=== PATIENT | female | born 1940 | race Caucasian/White ===

== ENCOUNTER 2018-03-04 11:28 | Emergency (ER) | payer MEDICARE ==
[~2018-03-04] VITALS: Ht 160 cm; Wt 63.5 kg
--- OUTSIDE RECORDS SUMMARY | 2018-03-04 11:32 | XMS REPORT | Summary of Care ---
Author Author [facility] Organization [facility] Address Unknown Phone Unavailable Encounter HQ Rustam(ERNIE) [id number] Date(s): 02/15/15 - 02/17/15 [facility] [address] [place] [address]- Final: Unspecified fracture of unspecified patella, initial encounter for closed fracture Discharge Disposition: [facility] Facility Attending Physician: Flores Joseph MD Admitting Physician: Calvin Rogers DO Vital Signs 1 2 3 Most recent to oldest [Reference Range]: 157.48 cm (02/15/15 10:50 PM) 165.1 cm (02/15/15 6:27 PM) Height 1 2 3 Most recent to oldest [Reference Range]: 98.2 DegF (02/17/15 12:20 PM) 98.8 DegF (02/17/15 7:35 AM) 98.6 DegF (02/17/15 12:00 AM) Temperature Oral [96.4-99.1 DegF] 1 2 3 Most recent to oldest [Reference Range]: 139/72 mmHg (02/17/15 12:20 PM) 141/84 mmHg *HI* (02/17/15 7:35 AM) 153/86 mmHg *HI* (02/17/15 12:00 AM) Blood Pressure [90-140/60-90 mmHg] 1 2 3 Most recent to oldest [Reference Range]: 16 BRMIN (02/17/15 12:20 PM) 16 BRMIN (02/17/15 7:35 AM) 17 BRMIN (02/17/15 12:00 AM) Respiratory Rate [14-20 BRMIN] 1 2 3 Most recent to oldest [Reference Range]: 76 bpm (02/17/15 12:20 PM) 78 bpm (02/17/15 7:35 AM) 81 bpm (02/17/15 12:00 AM) Peripheral Pulse Rate [60-100 bpm] 1 2 3 Most recent to oldest [Reference Range]: 72.727 kg (02/15/15 10:50 PM) 72.727 kg (02/15/15 6:27 PM) Weight 1 2 3 Most recent to oldest [Reference Range]: 29.33 m2 (02/15/15 10:50 PM) 26.68 m2 (02/15/15 6:27 PM) Body Mass Index Problem List Condition Effective Dates Status Health Status Informant Anxiety(Confirmed) Active Facial Active nerve(Confirmed) Hypertension(Confirm Active ed) Allergies, Adverse Reactions, Alerts Substance Reaction Severity Status NKDA Active Medications cefTRIAXone + Sodium Chloride 0.9% IV 100 mL 1 gm, Route: IVPB, Q24H, Dosing Weight 72.727, kg, Priority: STAT, Start date: 1 21:36:00, Duration: 30 day, Stop date: 03/16/15 21:36:00 Notes: (Same As: Zach).Use with 100ml NS mini-bag PLUS and infuse over 30 mi n MEDICATION WASTE Product Size: 1000 mgProduct Wasted: ___ mg Start Date: 02/15/15 Stop Date: 02/17/15 Status: Discontinued docusate sodium 100 mg oral capsule 100 mg, 1 cap, Route: PO, Drug form: CAP, BID, Dosing Weight 72.727, kg, Start d ate: 02/17/15 17:00:00, Duration: 30 day, Stop date: 03/19/15 9:00:00 Notes: (Same as: Colace) (Do Not Crush) Start Date: 02/17/15 Stop Date: 02/17/15 Status: Discontinued Dulcolax Laxative 10 mg, 2 tab, Route: PO, Drug form: ECTAB, Daily, Dosing Weight 72.727, kg, Prio rity: NOW, Start date: 02/17/15 10:12:00, Duration: 30 day, Stop date: 03/19/15 9:00:00 Notes: (Same As: Dulcolax, Correctol) (Do Not Crush) "Do Not Crush" Start Date: 02/17/15 Stop Date: 02/17/15 Status: Discontinued enalapril 10 mg, 2 tab, Route: PO, Drug form: TAB, Daily, Dosing Weight 72.727, kg, Start date: 02/16/15 23:00:00, Duration: 30 day, Stop date: 03/18/15 9:00:00 Notes: (Same as: Vasotec) Start Date: 02/16/15 Stop Date: 02/17/15 Status: Discontinued LORazepam 0.5 mg, 1 tab, Route: PO, Drug form: TAB, BID, Dosing Weight 72.727, kg, PRN as needed for anxiety, Start date: 02/16/15 11:50:00, Duration: 30 day, Stop date: 03/18/15 11:49:00 Notes: (Same as: Ativan) Start Date: 02/16/15 Stop Date: 02/17/15 Status: Discontinued morphine Sulfate 2 mg, 1 mL, Route: IVP, Drug form: INJ, Q4H, Dosing Weight 72.727, kg, PRN Pain Score 7-10, Start date: 02/15/15 21:36:00, Duration: 30 day, Stop date: 03/17/15 21:35:00 Notes: (Same as:MORPhine Sulfate) Start Date: 02/15/15 Stop Date: 02/17/15 Status: Discontinued multivitamin with minerals 1 tab, Route: PO, Drug Form: TAB, Dosing Weight 72.727, kg, Daily, Start date: 1 9:00:00, Duration: 30 day, Stop date: 03/18/15 9:00:00 Notes: (Same as:Thera-M, Theragran-M) Give with food. Start Date: 02/17/15 Stop Date: 02/17/15 Status: Discontinued [place] 7.5/325 oral tablet 1 tab, Route: PO, Drug Form: TAB, Dosing Weight 72.727, kg, Q6H, PRN Pain Score 7-10, Start date: 02/15/15 21:54:00, Stop date: 03/17/15 21:53:00 Notes: Same as [place] 325-7.5mg Do not exceed 4gm/day of acetaminophen. Start Date: 02/15/15 Stop Date: 02/17/15 Status: Discontinued nortriptyline 20 mg, 2 cap, Route: PO, Drug form: CAP, Bedtime, Dosing Weight 72.727, kg, Star t date: 02/16/15 21:00:00, Duration: 30 day, Stop date: 03/17/15 21:00:00 Notes: (Same as:Pamelor, Aventyl) Start Date: 02/16/15 Stop Date: 02/17/15 Status: Discontinued omeprazole 20 mg, Route: PO, Drug form: DRC, Daily, Dosing Weight 72.727, kg, Start date: 1 9:00:00, Duration: 30 day, Stop date: 03/18/15 9:00:00 Start Date: 02/17/15 Stop Date: 02/16/15 Status: Deleted ondansetron 4 mg, 2 mL, Route: IVP, Drug form: INJ, Q6H, Dosing Weight 72.727, kg, PRN Nause a & Vomiting, Start date: 02/15/15 21:36:00, Duration: 30 day, Stop date: 03/17/15 21:35:00 Notes: (Same as: Sandi) MEDICATION WASTE Product Size: 4 mgProduct Was mary: ___ mg Start Date: 02/15/15 Stop Date: 02/17/15 Status: Discontinued Protonix 40 mg, 1 tab, Route: PO, Drug form: ECTAB, Before Breakfast, Start date: 5 7:30:00, Duration: 30 day, Stop date: 03/18/15 7:30:00 Notes: Tablet should not be chewed or crushed.(Same as: Protonix) Start Date: 02/17/15 Stop Date: 02/17/15 Status: Discontinued Saline Flush 0.9% 10 ml, Route: IVP, Drug Form: INJ, Dosing Weight 72.727, kg, PRN, PRN Line Flush , Start date: 02/15/15 21:36:00, Duration: 30 day, Stop date: 03/17/15 20:35:00 Notes: (Same as: BD Posiflush) Start Date: 02/15/15 Stop Date: 02/17/15 Status: Discontinued Sodium Chloride 0.9% IV 1,000 mL 1,000 mL, Rate: 75 ml/hr, Infuse over: 13.3 hr, Route: IV, Dosing Weight 72.727 kg, Total Volume: 1,000, Start date: 02/15/15 21:36:00, Duration: 30 day, Stop d ate: 03/17/15 21:35:00 Start Date: 02/15/15 Stop Date: 02/17/15 Status: Discontinued tramadol 50 mg, 1 tab, Route: PO, Drug form: TAB, Q6H, Dosing Weight 72.727, kg, PRN Pain Score 4-6, Start date: 02/17/15 10:12:00, Duration: 30 day, Stop date: 03/19/15 10:11:00 Notes: Not to exceed 400mg/day. (Same As: Ultram) Start Date: 02/17/15 Stop Date: 02/17/15 Status: Discontinued tramadol 50 mg oral tablet 1-2 tab, PO, Q6H, PRN Pain, # 24 tab, 0 Refill(s) Start Date: 02/17/15 Status: Ordered verapamil 240 mg, 1 tab, Route: PO, Drug form: ERTAB, Daily, Dosing Weight 72.727, kg, Sta rt date: 02/17/15 9:00:00, Duration: 30 day, Stop date: 03/18/15 9:00:00 Notes: Do not crush or chew.; "Avoid grapefruit and grapefruit juice"(Same As: C salvador SR, Isoptin SR) Start Date: 02/17/15 Stop Date: 02/17/15 Status: Discontinued Vitamin D2 400 IntlUnit, Route: PO, Daily, Dosing Weight 72.727, kg, Start date: 02/17/15 9 :00:00, Duration: 30 day, Stop date: 03/18/15 9:00:00 Start Date: 02/17/15 Stop Date: 02/16/15 Status: Deleted Results ELECTROLYTES Most recent to 1 oldest [Reference Range]: Sodium Lvl [135-145 137 mEq/L mEq/L] (02/15/15 7:20 PM) Potassium Lvl 3.7 mEq/L [3.5-5.1 mEq/L] (02/15/15 7:20 PM) Chloride Lvl [95-109 102 mEq/L mEq/L] (02/15/15 7:20 PM) CO2 [24-32 mEq/L] 27 mEq/L (02/15/15 7:20 PM) AGAP [10.0-20.0 11.7 mEq/L mEq/L] (02/15/15 7:20 PM) CHEM PANEL Most recent to 1 oldest [Reference Range]: Creatinine Lvl 0.8 mg/dL [0.5-1.4 mg/dL] (02/15/15 7:20 PM) eGFR 72 mL/min/1.73m2 1 *NA* (02/15/15 PM) BUN [7-22 mg/dL] 6 mg/dL *LOW* (02/15/15 PM) Glucose Lvl [70-99 104 mg/dL mg/dL] *HI* (02/15/15: PM) Calcium Lvl 8.8 mg/dL [8.5-10.5 mg/dL] (02/15/15 7:20 PM) 1Result Comment: The eGFR is calculated using the CKD-EPI formula. In most young, healthy individuals the eGFR will be >90 mL/min/1.73m2. The eGFR declines with age. An eGFR of 60-89 may be normal in some populations, particularly the elderly, for whom the CKD-EPI formula has not been extensively validated. Use of the eGFR is not recommended in the following populations: Individuals with unstable creatinine concentrations, including patients and those with serious co-morbid conditions. Patients with extremes in muscle mass or diet. The data above are obtained from the National Kidney Disease Education Program ( NKDEP) which additionally recommends that when the eGFR is used in patients with extremes of body mass index for purposes of drug dosing, the eGFR should be mul tiplied by the estimated BMI. URINE AND STOOL Most recent to 1 oldest [Reference Range]: UA Turbidity [Clear] Clear (02/15/15 7:20 PM) UA Color [Yellow] Yellow *NA* (02/15/15 7:20 PM) UA pH [5.0-8.0] 6.0 (02/15/15 7:20 PM) UA Spec Grav <=1.005 [<=1.030] *NA* (02/15/15 7:20 PM) UA Glucose Negative [Negative] (02/15/15 7:20 PM) UA Blood [Negative] Trace *ABN* (02/15/15 7:20 PM) UA Ketones Negative [Negative] *NA* (02/15/15 7:20 PM) UA Protein Negative [Negative] (02/15/15 7:20 PM) UA Urobilinogen 0.2 EU/dL [0.1-1.0 EU/dL] (02/15/15 7:20 PM) UA Bili [Negative] Negative *NA* (02/15/15 7:20 PM) UA Leuk Est Negative [Negative] (02/15/15 7:20 PM) UA Nitrite Negative [Negative] (02/15/15 7:20 PM) UA Sq Epi [Few /LPF] Occasional /LPF (02/15/15 7:20 PM) HEMATOLOGY Most recent to 1 oldest [Reference Range]: WBC [3.7-10.4 K/CMM] 8.8 K/CMM (02/15/15 7:20 PM) RBC [4.20-5.40 3.80 M/CMM M/CMM] *LOW* (02/15/15 7:20 PM) Hgb [12.0-16.0 g/dL] 12.0 g/dL (02/15/15 7:20 PM) Hct [36.0-48.0 %] 35.7 % *LOW* (02/15/15 7:20 PM) MCV [80.0-98.0 fL] 93.8 fL (02/15/15 7:20 PM) MCH [27.0-31.0 pg] 31.5 pg *HI* (02/15/15 7:20 PM) MCHC [32.0-36.0 33.5 g/dL g/dL] (02/15/15 7:20 PM) RDW [11.5-14.5 %] 12.9 % (02/15/15 7:20 PM) Platelet [133-450 207 K/CMM K/CMM] (02/15/15 7:20 PM) MPV [7.4-10.4 fL] 6.6 fL *LOW* (02/15/15 7:20 PM) Segs [45.0-75.0 %] 72.6 % (02/15/15 7:20 PM) Lymphocytes 15.9 % [20.0-40.0 %] *LOW* (02/15/15 7:20 PM) Monocytes [2.0-12.0 10.8 % %] (02/15/15 7:20 PM) Eosinophils [0.0-4.0 0.1 % %] (02/15/15 7:20 PM) Basophils [0.0-1.0 0.6 % %] (02/15/15 7:20 PM) Segs-Bands # 6.4 K/CMM [1.5-8.1 K/CMM] (02/15/15 7:20 PM) Lymphocytes # 1.4 K/CMM [1.0-5.5 K/CMM] (02/15/15 7:20 PM) Monocytes # [0.0-0.8 0.9 K/CMM K/CMM] *HI* (02/15/15 7:20 PM) Basophils # [0.0-0.2 0.1 K/CMM K/CMM] (02/15/15 7:20 PM) Immunizations No data available for this section Procedures Procedure Date Related Diagnosis Body Site Cholecystostomy Social History Social History Type Response Alcohol Type Liquor. Frequency: 1-2 times per week. Last use: today. Smoking Status Never smoker; Exposure to Tobacco Smoke None; Cigarette Smoking Last 365 Days No; Reg Smoking Cessation Counseling No Assessment and Plan Extracted from: Title: Clinical Document Author: Calvin Rogers DO Date: 02/17/15 Progress Daily [facility] Completed: Jan, 14:54 by Calvin Rogers DO RM: 89 - [address], SE [id number] (: 1940) F Attending: Calvin Rogers DOPhone: Service: Internal Medicine Reason for Admission: PATELLAR FX; HUMERUS FX; INABILITY TO WALK Working DRG: None Documented Code status: Full Code [Ordered]Current diet: Isolation: None Documented Allergies: NKDA SUBJECTIVE Patient seen and examined. Events noted overnight. Labs/Images reviewed doing ok, improved OBJECTIVE Labs (Last four charted values) WBC 8.8(FEB 15) Hgb 12.0(FEB 15) Hct L 35.7(FEB 15) Plt 207(FEB 15) Na 137(FEB 15) K 3.7(FEB 15) CO2 27(FEB 15) Cl 102(FEB 15) Cr 0.8(FEB 15) BUN L 6(FEB 15) Glucose Random H 104(FEB 15) Ca 8.8(FEB 15) ASSESSMENT & EXAM Gen: NAD, Alert, Awake HEENT: NC/AT, PERRLA, oral area clear and moist Neck: No LAD, No JVD, trachea midline Chest: CTAB, no c/w/r CV: RRR, S1, S2 GI: +BS, S, NT, ND, No organomegaly Ext: no c/c/e right leg with brace and left arm on sling Neuro: AOx3, no gross deficits noted Skin: No notable rashes PLAN & TREATMENT accepted to SNF ok to d.c to snf appreciate rehab eval DIAGNOSES & PROBLEMS 1. Mechanical fall with nondisplaced fracture of the left humerus and right patellar fracture. 2. Hypertension. 3. Generalized anxiety. Ready for Discharge (Yes/No)? Jacques still necessary (Yes/No): Line still necessary (Yes/No): (no lab data in past 24 hours) VitalsTmp(F)[id number] 02/17 12:[id number]--- 02/17 07:[id number]--- 02/17 00:0098.441696/999613--- 02/16 19:[id number]--- 02/16 16:0998.003886/[id number]--- 24 Hr Tmax: 98.8F (37.11c) at 02/17 07:35Vital Signs are the last 5 in the past 48 hours. DateWt(kg)Wt(lb)Ht(cm)Ht(in)Method 02/15 (initial) 72.73 160.00Estimated . 65.00Stated I&ORecordInOutBal Tot 720 0 720 01/1824hr Tot 842 0 842 Medications (14) Active Scheduled Meds (8): 02/17/15 bisacodyl (Dulcolax Laxative) 10 mg PO Daily 02/15/15 cefTRIAXone + Sodium Chloride 0.9% IV 100 mL 1 gm IVPB Q24H 200 ml/hr 02/17/15 docusate (docusate sodium 100 mg oral capsule) 100 mg PO BID 02/16/15 enalapril 10 mg PO Daily 02/17/15 multivitamin with minerals 1 tab PO Daily 02/16/15 nortriptyline 20 mg PO Bedtime 02/17/15 pantoprazole (Protonix) 40 mg PO Before Breakfast 02/17/15 verapamil 240 mg PO Daily Unscheduled Meds: None PRN Meds (6): 02/16/15 LORazepam 0.5 mg PO BID 02/15/15 acetaminophen-hydrocodone ([place] 7.5/325 oral tablet) 1 tab PO Q6H 02/15/15 morphine Sulfate 2 mg IVP Q4H 02/15/15 ondansetron 4 mg IVP Q6H 02/15/15 sodium chloride (Saline Flush 0.9%) 10 ml IVP PRN 02/17/15 tramadol 50 mg PO Q6H One Time Meds: None Continuous Infusions: None
--- OUTSIDE RECORDS SUMMARY | 2018-03-04 11:32 | XMS REPORT | Summary of Care ---
Author Author [facility] Organization [facility] Address Unknown Phone Unavailable Encounter ORVILLE Easton(ERNIE) [id number] Date(s): 04/02/15 - 04/02/15 [facility] [address] [address]- [phone] Discharge Diagnosis: Acute lower UTI Discharge Disposition: Home Attending Physician: Jose Miguel Oh DO Vital Signs Most recent to 1 2 oldest [Reference Range]: Temperature Oral 98.1 DegF 97.8 DegF [96.4-99.1 DegF] (04/02/15 9:45 PM) (04/02/15 5:02 PM) Blood Pressure 135/74 mmHg 142/92 mmHg [90-140/60-90 mmHg] (04/02/15 9:45 PM) *HI* (04/02/15 5:02 PM) Respiratory Rate 18 BRMIN 18 BRMIN [14-20 BRMIN] (04/02/15 9:45 PM) (04/02/15 5:02 PM) Peripheral Pulse 78 bpm 79 bpm Rate [60-100 bpm] (04/02/15 9:45 PM) (04/02/15 5:02 PM) Weight 72.727 kg (04/02/15 5:02 PM) Problem List Condition Effective Dates Status Health Status Informant Anxiety(Confirmed) Active Facial Active nerve(Confirmed) Hypertension(Confirm Active ed) Allergies, Adverse Reactions, Alerts Substance Reaction Severity Status codeine Active Medications Macrobid 100 mg, 1 cap, Route: PO, Drug form: CAP, ONCE, Dosing Weight 72.727, kg, Priori ty: STAT, Start date: 04/02/15 20:49:00, Stop date: 04/02/15 20:49:00 Notes: Not Recommended for patients with CrCl< 50 ml/minWith food (Same as:Macrodantin) Start Date: 04/02/15 Stop Date: 04/02/15 Status: Completed Macrobid 100 mg oral capsule 100 mg=1 cap, PO, BID, X 7 day, # 14 cap, 0 Refill(s) Start Date: 04/02/15 Stop Date: 04/09/15 Status: Ordered Saline Flush 0.9% 10 mL, Route: IVP, Drug Form: INJ, Dosing Weight 72.727, kg, PRN, PRN Line Flush , Start date: 04/02/15 17:07:00, Duration: 30 day, Stop date: 05/02/15 17:06:00 Notes: (Same as: BD Posiflush) Start Date: 04/02/15 Stop Date: 04/02/15 Status: Discontinued Tylenol Caplet Extra Strength 500 mg oral tablet 500 mg=1 tab, PO, Q6H, PRN Fever, X 10 day, # 40 tab, 0 Refill(s) Start Date: 04/02/15 Stop Date: 04/12/15 Status: Ordered Results ELECTROLYTES Most recent to 1 oldest [Reference Range]: Sodium Lvl [135-145 131 mEq/L mEq/L] *LOW* (04/02/15 5:59 PM) Potassium Lvl 3.3 mEq/L [3.5-5.1 mEq/L] *LOW* (04/02/15 5:59 PM) Chloride Lvl [95-109 95 mEq/L mEq/L] (04/02/15 5:59 PM) CO2 [24-32 mEq/L] 26 mEq/L (04/02/15 5:59 PM) AGAP [10.0-20.0 13.3 mEq/L mEq/L] (04/02/15 5:59 PM) CHEM PANEL Most recent to 1 oldest [Reference Range]: Creatinine Lvl 0.75 mg/dL [0.50-1.40 mg/dL] (04/02/15 5:59 PM) eGFR 78 mL/min/1.73m2 1 *NA* (04/02/15 5:59 PM) BUN [7-22 mg/dL] 8 mg/dL (04/02/15 5:59 PM) B/C Ratio [6-25] 11 (04/02/15 5:59 PM) Glucose Lvl [70-99 103 mg/dL mg/dL] *HI* (04/02/15 5:59 PM) Total Protein 8.0 g/dL [6.4-8.4 g/dL] (04/02/15 5:59 PM) Albumin Lvl [3.5-5.0 3.9 g/dL g/dL] (04/02/15 5:59 PM) Globulin [2.0-4.0 4.1 g/dL g/dL] *HI* (04/02/15 5:59 PM) A/G Ratio [0.7-1.6] 1.0 (04/02/15 5:59 PM) Calcium Lvl 9.4 mg/dL [8.5-10.5 mg/dL] (04/02/15 5:59 PM) ALT [0-65 unit/L] 19 unit/L (04/02/15 5:59 PM) AST [0-37 unit/L] 16 unit/L (04/02/15 5:59 PM) Alk Phos [39-136 78 unit/L unit/L] (04/02/15 5:59 PM) Bili Total [0.2-1.3 0.3 mg/dL mg/dL] (04/02/15 5:59 PM) Lipase Lvl [73-393 115 unit/L unit/L] (04/02/15 5:59 PM) 1Result Comment: The eGFR is calculated [...] 1 oldest [Reference Range]: UA Turbidity [Clear] Slight *ABN* (04/02/15 8:04 PM) UA Color Ltyellow *NA* (04/02/15 8:04 PM) UA pH [5.0-8.0] 5.0 (04/02/15 8:04 PM) UA Spec Grav 1.006 [<=1.030] (04/02/15 8:04 PM) UA Glucose [Negative Negative mg/dL mg/dL] *NA* (04/02/15 8:04 PM) UA Blood [Negative] Small *ABN* (04/02/15 8:04 PM) UA Ketones [Negative Negative mg/dL mg/dL] *NA* (04/02/15 8:04 PM) UA Protein [Negative Negative mg/dL mg/dL] (04/02/15 8:04 PM) UA Urobilinogen <=1.0 mg/dL [0.1-1.0 mg/dL] *NA* (04/02/15 8:04 PM) UA Bili [Negative] Negative *NA* (04/02/15 8:04 PM) UA Leuk Est Moderate [Negative] *ABN* (04/02/15 8:04 PM) UA Nitrite Negative [Negative] (04/02/15 8:04 PM) UA WBC [0-5 /HPF] 4 /HPF (04/02/15 8:04 PM) UA RBC [0-2 /HPF] 2 /HPF (04/02/15 8:04 PM) UA Bacteria [None Occasional /HPF Seen /HPF] *NA* (04/02/15 8:04 PM) UA Sq Epi [Few /LPF] Occasional /LPF *NA* (04/02/15 8:04 PM) HEMATOLOGY Most recent to 1 oldest [Reference Range]: WBC [3.7-10.4 K/CMM] 9.0 K/CMM (04/02/15 5:59 PM) RBC [4.20-5.40 4.51 M/CMM M/CMM] (04/02/15 5:59 PM) Hgb [12.0-16.0 g/dL] 13.2 g/dL (04/02/15 5:59 PM) Hct [36.0-48.0 %] 39.7 % (04/02/15 5:59 PM) MCV [80.0-98.0 fL] 88.1 fL (04/02/15 5:59 PM) MCH [27.0-31.0 pg] 29.3 pg (04/02/15 5:59 PM) MCHC [32.0-36.0 33.3 g/dL g/dL] (04/02/15 5:59 PM) RDW [11.5-14.5 %] 13.9 % (04/02/15 5:59 PM) Platelet [133-450 301 K/CMM K/CMM] (04/02/15 5:59 PM) MPV [7.4-10.4 fL] 6.6 fL *LOW* (04/02/15 5:59 PM) Segs [45.0-75.0 %] 71.0 % (04/02/15 5:59 PM) Lymphocytes 20.4 % [20.0-40.0 %] (04/02/15 5:59 PM) Monocytes [2.0-12.0 7.7 % %] (04/02/15 5:59 PM) Eosinophils [0.0-4.0 0.3 % %] (04/02/15 5:59 PM) Basophils [0.0-1.0 0.6 % %] (04/02/15 5:59 PM) Segs-Bands # 6.4 K/CMM [1.5-8.1 K/CMM] (04/02/15 5:59 PM) Lymphocytes # 1.8 K/CMM [1.0-5.5 K/CMM] (04/02/15 5:59 PM) Monocytes # [0.0-0.8 0.7 K/CMM K/CMM] (04/02/15 5:59 PM) Basophils # [0.0-0.2 0.1 K/CMM K/CMM] (04/02/15 5:59 PM) PT [12.0-14.7 13.6 seconds seconds] (04/02/15 5:59 PM) INR [0.85-1.17] 1.01 (04/02/15 5:59 PM) PTT [22.9-35.8 32.1 seconds seconds] (04/02/15 5:59 PM) Immunizations No data available for this section Procedures Procedure Date Related Diagnosis Body Site Cholecystostomy Social History Social History Type Response Alcohol Type Liquor. Frequency: 1-2 times per week. Last use: today. Smoking Status Never smoker; Exposure to Tobacco Smoke None; Cigarette Smoking Last 365 Days No; Reg Smoking Cessation Counseling No Assessment and Plan No data available for this section
--- OUTSIDE RECORDS SUMMARY | 2018-03-04 11:32 | XMS REPORT | Summary of Care ---
Author Author [facility] Organization [facility] Address Unknown Phone Unavailable Encounter ORVILLE Easton(ERNIE) [id number] Date(s): 02/13/15 - 02/14/15 [facility] [address] [place] [address]- Discharge Disposition: Home Attending Physician: Calvin Rogers DO Admitting Physician: Calvin Rogers DO Vital Signs 1 2 3 Most recent to oldest [Reference Range]: 157.48 cm (02/13/15 7:06 PM) Height 1 2 3 Most recent to oldest [Reference Range]: 98.4 DegF (02/14/15 4:00 PM) 97.7 DegF (02/14/15 12:02 PM) 98.5 DegF (02/14/15 8:06 AM) Temperature Oral [96.4-99.1 DegF] 1 2 3 Most recent to oldest [Reference Range]: 145/86 mmHg *HI* (02/14/15 4:00 PM) 155/76 mmHg *HI* (02/14/15 12:02 PM) 146/79 mmHg *HI* (02/14/15 8:06 AM) Blood Pressure [90-140/60-90 mmHg] 1 2 3 Most recent to oldest [Reference Range]: 16 BRMIN (02/14/15 4:00 PM) 17 BRMIN (02/14/15 12:02 PM) 16 BRMIN (02/14/15 8:06 AM) Respiratory Rate [14-20 BRMIN] 1 2 3 Most recent to oldest [Reference Range]: 85 bpm (02/14/15 4:00 PM) 78 bpm (02/14/15 12:02 PM) 84 bpm (02/14/15 8:06 AM) Peripheral Pulse Rate [60-100 bpm] 1 2 3 Most recent to oldest [Reference Range]: 70.455 kg (02/13/15 7:06 PM) Weight 1 2 3 Most recent to oldest [Reference Range]: 28.41 m2 (02/13/15 7:06 PM) Body Mass Index Problem List Condition Effective Dates Status Health Status Informant Anxiety(Confirmed) Active Facial Active nerve(Confirmed) Hypertension(Confirm Active ed) Allergies, Adverse Reactions, Alerts Substance Reaction Severity Status NKDA Active Medications enalapril 10 mg, 1 tab, Route: PO, Drug form: TAB, Daily, Dosing Weight 70.455, kg, Start date: 02/15/15 9:00:00, Duration: 30 day, Stop date: 03/16/15 9:00:00 Notes: (Same as: Vasotec) Start Date: 02/15/15 Stop Date: 02/14/15 Status: Canceled enoxaparin 40 mg, 0.4 mL, Route: SUB-Q, Drug form: INJ, [id number], Dosing Weight 70.455, kg, Start date: 02/14/15 16:00:00, Duration: 30 day, Stop date: 03/15/15 16:00:00 Notes: (Same as: Lovenox) Start Date: 02/14/15 Stop Date: 02/14/15 Status: Discontinued LORazepam 0.5 mg, 1 tab, Route: PO, Drug form: TAB, BID, Dosing Weight 70.455, kg, PRN as needed for anxiety, Start date: 02/14/15 13:49:00, Duration: 30 day, Stop date: 03/16/15 13:48:00 Notes: (Same as: Ativan) Start Date: 02/14/15 Stop Date: 02/14/15 Status: Discontinued morphine Sulfate 4 mg, 2 mL, Route: IVP, Drug form: INJ, Q4H, Dosing Weight 70.455, kg, PRN Pain Score 7-10, Start date: 02/14/15 1:17:00, Duration: 30 day, Stop date: 03/16/15 1:16:00 Notes: (Same as:MORPhine Sulfate) Start Date: 02/14/15 Stop Date: 02/14/15 Status: Discontinued [place] 10/325 oral tablet 1 tab, Route: PO, Drug Form: TAB, Dosing Weight 70.455, kg, Q4H, PRN Pain Score 6-10, Start date: 02/14/15 4:32:00, Duration: 30 day, Stop date: 03/16/15 4:31:0 0 Notes: Do not exceed 4gm/day of acetaminophen. (Same as: [place] 325/10) Start Date: 02/14/15 Stop Date: 02/14/15 Status: Discontinued [place] 5/325 oral tablet 1 tab, Route: PO, Drug Form: TAB, Dosing Weight 70.455, kg, ONCE, STAT, Start da te: 02/13/15 20:12:00, Stop date: 02/13/15 20:12:00 Notes: (Same as: [place] 325/5) Do not exceed 4gm/day of acetaminophen. Start Date: 02/13/15 Stop Date: 02/13/15 Status: Completed [place] 7.5/325 oral tablet 1-2 tab, PO, Q4-6H, PRN Pain, X 7 day, # 40 tab, 0 Refill(s), given to patient Start Date: 02/14/15 Stop Date: 02/21/15 Status: Suspended nortriptyline 20 mg, 2 cap, Route: PO, Drug form: CAP, Bedtime, Dosing Weight 70.455, kg, Star t date: 02/14/15 21:00:00, Duration: 30 day, Stop date: 03/15/15 21:00:00 Notes: (Same as:Pamelor, Aventyl) Start Date: 02/14/15 Stop Date: 02/14/15 Status: Canceled omeprazole 20 mg, Route: PO, Drug form: DRC, Daily, Dosing Weight 70.455, kg, Start date: 1 9:00:00, Duration: 30 day, Stop date: 03/16/15 9:00:00 Start Date: 02/15/15 Stop Date: 02/14/15 Status: Discontinued ondansetron 4 mg, 2 mL, Route: IVP, Drug form: INJ, Q6H, Dosing Weight 70.455, kg, PRN Nause a & Vomiting, Start date: 02/14/15 1:17:00, Duration: 30 day, Stop date: 03/16/15 1:16:00 Notes: (Same as: Zofran) MEDICATION WASTE Product Size: 4 mgProduct Was mary: ___ mg Start Date: 02/14/15 Stop Date: 02/14/15 Status: Discontinued Protonix 40 mg, 1 tab, Route: PO, Drug form: ECTAB, Before Dinner, Start date: 02/14/15 1 6:30:00, Duration: 30 day, Stop date: 03/15/15 16:30:00 Notes: Tablet should not be chewed or crushed.(Same as: Protonix) Start Date: 02/14/15 Stop Date: 02/14/15 Status: Discontinued verapamil 240 mg, 1 tab, Route: PO, Drug form: ERTAB, Daily, Dosing Weight 70.455, kg, Sta rt date: 02/15/15 9:00:00, Duration: 30 day, Stop date: 03/16/15 9:00:00 Notes: Do not crush or chew.; "Avoid grapefruit and grapefruit juice"(Same As: C salvador SR, Isoptin SR) Start Date: 02/15/15 Stop Date: 02/14/15 Status: Canceled Results No data available for this section Immunizations No data available for this section Procedures Procedure Date Related Diagnosis Body Site Cholecystostomy Social History Social History Type Response Alcohol Type Liquor. Frequency: 1-2 times per week. Last use: today. Smoking Status Never smoker; Exposure to Tobacco Smoke None; Cigarette Smoking Last 365 Days No; Reg Smoking Cessation Counseling No Assessment and Plan Extracted from: Title: Ortho Consult Author: Casper Zuñiga MD Date: 02/14/15 Consulting Physician: Dr. Calvin Rogers CC: Left shoulder pain, Right knee pain HPI: 74 yo s/p mechanical GLF now with new onsent pain in left shoulder and right knee. Pt's Left shoulder pain is aggravated by any movement and touch. Patient's right knee is anterior knee pain aggravated by any form of touch, movement, or attempted weioght bearing. Pain for both is 7/10 severeity, alleviated by pain med, aggravated by all above parameters. Pt denies, SOB, LOC, CP. PMH: recurrent UTI, HTN PSH: Lap aaron Meds: see MAR SHX: denies tob, etoh, drugs FHx: HTN denies osteoporosis, or arthritis ROS: A 12 system ROS was completed. Systems evaluated include: general, psych, skin, HEENT, CV, Pulm, , GI, Endocrine, Lymphatic, Neuro, Musculoskeletal. Pertinent Positives are limited to MSK see HPI for further details. PE: Vitals: Vital Signs (last 24 hrs) Last Charted Temp Oral98.5 DegF (FEB 14) Heart Rate [id number] bpm (FEB 14) Resp Rate 16 BRMIN (FEB 14) SBPH 146mmHg (FEB 14) DBP79 mmHg (FEB 14) Yyhhdf49.455 kg (FEB 13) Gynhuv102.48 cm (FEB 13) BMI28.41 (FEB 13) General: normal body habitus, NAD, abrasian along left head Psych: AAO*3, demonstrates proper mood and affect Skin: no STS or Ecchymosis or Lacerations along right knee and left shoulder. abrasian to left head Eyes: EOMI, Sclera normal CV: 1+ bilateral intact pulses DR, DP, PT Abdomen: Soft NT, ND Neurologic: Sensory LT I bilaterally all dermatomal distrbutions from C5 to T1 and L2 to S1 Motor RUE: intact deltoid, biceps, triceps, wrist flexors, wrist extensors, IO. Able to perform thumb up, ok, and cross fingers LUE: intact deltoid, biceps, triceps, wrist flexors, wrist extensors, IO. Able to perform thumb up, ok, and cross fingers RLE: intact hip flexors, quads, hamstring, tib ant, gastroc/soleus, EHL, FHL LLE: intact hip flexors, quads, hamstring, tib ant, gastroc/soleus, EHL, FHL Extremity RUE: no focal TTP at clavicle, shoulder, humerus, elbow, forearm, wrist, fingers painless ROM of shoulder, elbow, wrist, and digits LUE: no focal TTP at clavicle, elbow, forearm, wrist, fingers +TTP L shoulder TTP and pain w/ ROM painless ROM of elbow, wrist, and digits RLE: no focal TTP at iliac crest, hip, greater troch, femur, tib/fib, ankle, foot, digits painless ROM of hip, ankle, and digits Focal TTP at patella, pain with extension. INtact straight leg raise LLE: no focal TTP at iliac crest, hip, greater troch, femur, knee, tib/fib, ankle, foot, digits painless ROM of hip, knee, ankle, and digits Radiographs Right knee (AP/Lat): left patella fracture comminuted, minimally displaced, diffuse osteopenia Left shoulder series (3 views): Right proximal humers fracture, minimally displaced and impacted AP Pelvis (single view): no evidence of fracture or dislocation Right femur series (2 views): no evidence of fracture of femur Labs: (no lab data in past 24 hours) Assessemnt: Right patella fracture, comminuted, minimally displaced: S82.044A Left proximal humerus fracture, minimally displaced: S42.215A Medical Decision Making Management: Patient does not require operative fixation of injuries at this time. Left patella fracture: hinged knee brace, locked in full extension at all times. Patient is cleared to WBAT with hinged knee brace locked in full extension Right proximal humerus fracture: shoulder sling, no lifting or ROM for 4 weeks. Data: I have reviewed the images as well as the reports for the Left femur series, AP pelvis, Left knee series, Right shoulder sereis as listed above. My interpretation is as listed above Risk: Moderate We are participating in closed fracture care management of left proximal humerus fractures, right patella fracture.
--- OUTSIDE RECORDS SUMMARY | 2018-03-04 11:32 | XMS REPORT | Summary of Care ---
Author Author [facility] Organization [facility] Address Unknown Phone Unavailable Encounter ORVILLE Easton(ERNIE) [id number] Date(s): 02/23/17 - 03/01/17 [facility] [id number] [place] [address]- Discharge Disposition: [facility] Facility Attending Physician: Flex Locke MD Admitting Physician: Flex Locke MD Vital Signs 1 2 3 Most recent to oldest [Reference Range]: 160.02 cm (02/23/17 1:46 PM) 162.56 cm (02/23/17 10:08 AM) Height 98.3 DegF (03/01/17 4:09 PM) 99.3 DegF *HI* (03/01/17 11:22 AM) 98.3 DegF (03/01/17 7:35 AM) Temperature Oral [96.4-99.1 DegF] 107/71 mmHg (03/01/17 4:09 PM) 125/75 mmHg (03/01/17 11:22 AM) 148/91 mmHg *HI* (03/01/17 7:35 AM) Blood Pressure [90-140/60-90 mmHg] 16 BRMIN (03/01/17 4:25 AM) 16 BRMIN (03/01/17 12:05 AM) 16 BRMIN (02/28/17 8:05 PM) Respiratory Rate [14-20 BRMIN] 70 bpm (03/01/17 4:09 PM) 69 bpm (03/01/17 11:22 AM) 73 bpm (03/01/17 7:35 AM) Peripheral Pulse Rate [60-100 bpm] 60 kg (02/27/17 9:00 AM) 61.364 kg (02/23/17 1:46 PM) 54.545 kg (02/23/17 10:08 AM) Weight 23.96 m2 (02/23/17 1:46 PM) 20.64 m2 (02/23/17 10:08 AM) Body Mass Index Problem List Condition Effective Dates Status Health Status Informant Accidental Resolved fall(Confirmed) Anxiety(Confirmed) Active Depression(Confirmed Resolved ) Diarrhea(Confirmed) 08/07/16 Resolved History of Resolved shingles(Confirmed) Hypertension(Confirm Active ed) Seizures(Confirmed) Resolved Allergies, Adverse Reactions, Alerts Substance Reaction Severity Status codeine Active Medications acetaminophen 650 mg, 2 tab, Route: PO, Drug form: TAB, Q4H, Dosing Weight 61.364, kg, PRN Olive n 1-3/Temp > 99.5 F, Start date: 02/23/17 15:25:00 CDT, Duration: 30 day, Stop date: 03/25/17 15:24:00 BLADE ALIGNER Notes: Do not exceed 4 gm/day. (Same as: Tylenol) Start Date: 02/23/17 Stop Date: 03/01/17 Status: Discontinued aspirin 325 mg, Route: PO, Drug form: TAB, ONCE, Dosing Weight 54.545, kg, Priority: STA T, Start date: 02/23/17 12:21:00 CDT, Stop date: 02/23/17 12:21:00 CDT Start Date: 02/23/17 Stop Date: 02/23/17 Status: Completed aspirin 81 mg tablet, enteric coated 81 mg, 1 tab, Route: PO, Drug form: ECTAB, Daily, Dosing Weight 61.364, kg, Star t date: 02/24/17 9:00:00 CDT, Duration: 30 day, Stop date: 03/25/17 9:00:00 BLADE ALIGNER Notes: Do not crush or chew.(Same As: Ecotrin) Start Date: 02/24/17 Stop Date: 03/01/17 Status: Discontinued aspirin 81 mg tablet, enteric coated 81 mg=1 tab, PO, Daily, 0 Refill(s) Start Date: 03/01/17 Status: Ordered atorvastatin 80 mg, 2 tab, Route: PO, Drug form: TAB, Bedtime, Dosing Weight 61.364, kg, Star t date: 02/23/17 21:00:00 CDT, Duration: 30 day, Stop date: 03/24/17 21:00:00 CS T Notes: (Same as: Lipitor) Start Date: 02/23/17 Stop Date: 03/01/17 Status: Discontinued carbidopa-levodopa 25 mg-100 mg oral tablet 1 tab, Route: PO, Drug Form: TAB, Dosing Weight 61.364, kg, TID, NOW, Start date : 02/26/17 11:27:00 CDT, Duration: 30 day, Stop date: 03/28/17 9:00:00 BLADE ALIGNER Notes: Take with milk or food. (Same As: Sinemet) Start Date: 02/26/17 Stop Date: 03/01/17 Status: Discontinued carbidopa-levodopa 25 mg-100 mg oral tablet 1 tab, PO, TID, 0 Refill(s) Start Date: 03/01/17 Status: Ordered enalapril 10 mg, 1 tab, Route: PO, Drug form: TAB, Daily, Dosing Weight 61.364, kg, Start date: 02/26/17 9:00:00 CDT, Duration: 30 day, Stop date: 03/27/17 9:00:00 BLADE ALIGNER Notes: (Same as: Vasotec) Start Date: 02/26/17 Stop Date: 03/01/17 Status: Discontinued enoxaparin 40 mg, 0.4 mL, Route: SUB-Q, Drug form: INJ, [id number], Dosing Weight 61.364, kg, Start date: 02/23/17 16:00:00 CDT, Duration: 30 day, Stop date: 03/24/17 16:00: 00 BLADE ALIGNER Notes: (Same as: Lovenox) Start Date: 02/23/17 Stop Date: 03/01/17 Status: Discontinued famotidine 20 mg oral tablet 20 mg, 1 tab, Route: PO, Drug form: TAB, Daily, Dosing Weight 61.364, kg, Start date: 02/28/17 9:00:00 CDT, Duration: 30 day, Stop date: 03/29/17 9:00:00 BLADE ALIGNER Notes: (Same as: Pepcid) Start Date: 02/28/17 Stop Date: 03/01/17 Status: Discontinued GI cocktail 30 mL, Route: PO, Dosing Weight 54.545, kg, ONCE, STAT, Start date: 02/23/17 11: 40:00 CDT, Stop date: 02/23/17 11:40:00 CDT Start Date: 02/23/17 Stop Date: 02/23/17 Status: Completed guaiFENesin 100 mg, Route: PO, ONCE, Dosing Weight 54.545, kg, Start date: 02/23/17 11:40:00 CDT, Stop date: 02/23/17 11:40:00 CDT Start Date: 02/23/17 Stop Date: 02/23/17 Status: Completed NS (Bolus) IV 1,000 mL, 1,000 ml/hr, Infuse Over: 1 hr, Route: IV, ONCE, Priority: STAT, Dosin g Weight 54.545 kg, Start date: 02/23/17 10:36:00 CDT, Duration: 1 doses or time s, Stop date: 02/23/17 10:36:00 CDT Start Date: 02/23/17 Stop Date: 02/23/17 Status: Completed ondansetron 4 mg, 2 mL, Route: IVP, Drug form: INJ, Q8H, Dosing Weight 61.364, kg, PRN Nause a & Vomiting, Start date: 02/23/17 15:25:00 CDT, Duration: 30 day, Stop date: 03/25/17 15:24:00 BLADE ALIGNER Notes: (Same as: Sandi) MEDICATION WASTE Product Size: 4 mgProduct Was mary: ___ mg Start Date: 02/23/17 Stop Date: 03/01/17 Status: Discontinued pantoprazole 40 mg, Route: IVP, ONCE, Dosing Weight 54.545, kg, Priority: STAT, Start date: 1 11:40:00 CDT, Stop date: 02/23/17 11:40:00 CDT Start Date: 02/23/17 Stop Date: 02/23/17 Status: Completed QUEtiapine 25 mg, 1 tab, Route: PO, Drug form: TAB, BID, Dosing Weight 61.364, kg, PRN Agit ation, Start date: 02/26/17 11:49:00 CDT, Duration: 30 day, Stop date: 03/28/17 11:48:00 BLADE ALIGNER, agitation/hallucinations Notes: (Same as: SEROquel) Start Date: 02/26/17 Stop Date: 03/01/17 Status: Discontinued QUEtiapine 25 mg oral tablet 25 mg=1 tab, PO, BID, PRN Agitation | agitation/hallucinations, 0 Refill(s) Start Date: 03/01/17 Status: Ordered Risperdal 2 mg, 4 tab, Route: PO, Drug form: TAB, Daily, Dosing Weight 61.364, kg, Start d ate: 02/26/17 9:00:00 CDT, Duration: 30 day, Stop date: 03/27/17 9:00:00 BLADE ALIGNER Notes: (Same as: Risperdal) Start Date: 02/26/17 Stop Date: 02/26/17 Status: Discontinued Risperdal 2 mg oral tablet 2 mg=1 tab, PO, Daily, # 60 tab, 0 Refill(s) Start Date: 02/23/17 Stop Date: 03/01/17 Status: Discontinued Saline Flush 0.9% 10 ml, Route: IVP, Drug Form: INJ, Dosing Weight 61.364, kg, Q12H, Start date: 1 21:00:00 CDT, Duration: 30 day, Stop date: 03/25/17 9:00:00 BLADE ALIGNER Notes: (Same as: BD Posiflush) Start Date: 02/23/17 Stop Date: 03/01/17 Status: Discontinued Saline Flush 0.9% 10 ml, Route: IVP, Drug Form: INJ, Dosing Weight 61.364, kg, PRN, PRN Line Flush , Start date: 02/23/17 15:25:00 CDT, Duration: 30 day, Stop date: 03/25/17 14:24 :00 BLADE ALIGNER Notes: (Same as: BD Posiflush) Start Date: 02/23/17 Stop Date: 03/01/17 Status: Discontinued Saline Flush 0.9% 10 mL, Route: IVP, Drug Form: INJ, Dosing Weight 54.545, kg, PRN, PRN Line Flush , Start date: 02/23/17 10:34:00 CDT, Duration: 30 day, Stop date: 03/25/17 9:33: 00 BLADE ALIGNER Notes: (Same as: BD Posiflush) Start Date: 02/23/17 Stop Date: 02/23/17 Status: Discontinued sertraline 50 mg, 1 tab, Route: PO, Drug form: TAB, Daily, Dosing Weight 61.364, kg, Start date: 02/26/17 9:00:00 CDT, Duration: 30 day, Stop date: 03/27/17 9:00:00 BLADE ALIGNER Notes: (Same as: Zoloft) Start Date: 02/26/17 Stop Date: 03/01/17 Status: Discontinued sertraline 50 mg oral tablet 50 mg=1 tab, PO, Daily, # 30 tab, 0 Refill(s) Start Date: 02/23/17 Status: Ordered Sodium Chloride 0.9% (Bolus) IV 1,000 mL, 1000 ml/hr, Infuse Over: 1 hr, Route: IV, 1,000, Drug form: INJ, ONCE, Priority: STAT, Dosing Weight 54.545 kg, Start date: 02/23/17 10:40:00 CDT, Dur ation: 1 doses or times, Stop date: 02/23/17 10:40:00 CDT Start Date: 02/23/17 Stop Date: 02/23/17 Status: Completed Results ELECTROLYTES 1 2 3 Most recent to oldest [Reference Range]: 136 mEq/L (02/28/17 9:32 AM) 135 mEq/L (02/26/17 4:52 AM) 133 mEq/L *LOW* (02/24/17 3:39 AM) Sodium Lvl [135-145 mEq/L] 3.4 mEq/L *LOW* (02/28/17 9:32 AM) 3.7 mEq/L (02/26/17 4:52 AM) 3.6 mEq/L (02/24/17 3:39 AM) Potassium Lvl [3.5-5.1 mEq/L] 99 mEq/L (02/28/17 9:32 AM) 99 mEq/L (02/26/17 4:52 AM) 100 mEq/L (02/24/17 3:39 AM) Chloride Lvl [95-109 mEq/L] 26 mEq/L (02/28/17 9:32 AM) 26 mEq/L (02/26/17 4:52 AM) 25 mEq/L (02/24/17 3:39 AM) CO2 [24-32 mEq/L] 14.4 mEq/L (02/28/17 9:32 AM) 13.7 mEq/L (02/26/17 4:52 AM) 11.6 mEq/L (02/24/17 3:39 AM) AGAP [10.0-20.0 mEq/L] CHEM PANEL 1 2 3 Most recent to oldest [Reference Range]: 0.54 mg/dL (02/28/17 9:32 AM) 0.40 mg/dL *LOW* (02/26/17 4:52 AM) 0.46 mg/dL *LOW* (02/24/17 3:39 AM) Creatinine Lvl [0.50-1.40 mg/dL] 92 mL/min/1.73m2 1 *NA* (02/28/17 9:32 AM) 101 mL/min/1.73m2 2 *NA* (02/26/17 4:52 AM) 96 mL/min/1.73m2 3 *NA* (02/24/17 3:39 AM) eGFR 12 mg/dL (02/28/17 9:32 AM) 12 mg/dL (02/26/17 4:52 AM) 20 mg/dL (02/24/17 3:39 AM) BUN [7-22 mg/dL] 45 *HI* (02/23/17 10:39 AM) B/C Ratio [6-25] 126 mg/dL *HI* (02/28/17 9:32 AM) 98 mg/dL (02/26/17 4:52 AM) 93 mg/dL (02/24/17 3:39 AM) Glucose Lvl [70-99 mg/dL] 7.6 g/dL (02/23/17 10:39 AM) Total Protein [6.4-8.4 g/dL] 3.3 g/dL *LOW* (02/23/17 10:39 AM) Albumin Lvl [3.5-5.0 g/dL] 4.3 g/dL *HI* (02/23/17 10:39 AM) Globulin [2.7-4.2 g/dL] 0.8 (02/23/17 10:39 AM) A/G Ratio [0.7-1.6] 8.6 mg/dL (02/28/17 9:32 AM) 8.7 mg/dL (02/26/17 4:52 AM) 8.6 mg/dL (02/24/17 3:39 AM) Calcium Lvl [8.5-10.5 mg/dL] 35 unit/L (02/23/17 10:39 AM) ALT [0-65 unit/L] 34 unit/L (02/23/17 10:39 AM) AST [0-37 unit/L] 99 unit/L (02/23/17 10:39 AM) Alk Phos [39-136 unit/L] 0.5 mg/dL (02/23/17 10:39 AM) Bili Total [0.2-1.3 mg/dL] 1.2 mMol/L (02/23/17 10:40 AM) Lactic Acid Lvl [0.5-2.2 mMol/L] 1Result Comment: The eGFR is calculated using [...] be mul tiplied by the estimated BMI. 2Result Comment: The eGFR is calculated using the [...] be mul tiplied by the estimated BMI. 3Result Comment: The eGFR is calculated using the [...] be mul tiplied by the estimated BMI. CARDIAC ENZYMES 1 2 3 Most recent to oldest [Reference Range]: 20 unit/L (02/23/17 10:39 AM) Total CK [12-191 unit/L] <0.5 ng/mL (02/23/17 10:39 AM) CK MB [0.5-3.6 ng/mL] <2.5 (02/23/17 10:39 AM) CK MB Index [0.0-2.5] <0.02 ng/mL (02/23/17 10:39 AM) Troponin-I [0.00-0.40 ng/mL] LIPIDS 1 2 3 Most recent to oldest [Reference Range]: 4.18 (02/24/17 3:39 AM) 4.36 (02/23/17 7:09 PM) CHD Risk [3.90-5.80] 159 mg/dL (02/24/17 3:39 AM) 170 mg/dL (02/23/17 7:09 PM) Chol [<=199 mg/dL] 110 mg/dL (02/24/17 3:39 AM) 100 mg/dL (02/23/17 7:09 PM) Trig [<=149 mg/dL] 38 mg/dL *LOW* (02/24/17 3:39 AM) 39 mg/dL *LOW* (02/23/17 7:09 PM) HDL [>=61 mg/dL] 99 mg/dL (02/24/17 3:39 AM) 111 mg/dL *HI* (02/23/17 7:09 PM) LDL (Calculated) [<=99 mg/dL] 22 *NA* (02/24/17 3:39 AM) 20 *NA* (02/23/17 7:09 PM) VLDL SPECIAL CHEMISTRY 1 2 3 Most recent to oldest [Reference Range]: 5.3 % (02/23/17 7:09 PM) Hgb A1C [<=5.6 %] URINE AND STOOL 1 2 3 Most recent to oldest [Reference Range]: Marked *ABN* (02/23/17 10:39 AM) UA Turbidity [Clear] Luciana *NA* (02/23/17 10:39 AM) UA Color 5.0 (02/23/17 10:39 AM) UA pH [5.0-8.0] 1.025 (02/23/17 10:39 AM) UA Spec Grav [<=1.030] Negative mg/dL *NA* (02/23/17 10:39 AM) UA Glucose [Negative mg/dL] Negative (02/23/17 10:39 AM) UA Blood [Negative] Negative mg/dL *NA* (02/23/17 10:39 AM) UA Ketones [Negative mg/dL] Negative mg/dL (02/23/17 10:39 AM) UA Protein [Negative mg/dL] <=1.0 mg/dL *NA* (02/23/17 10:39 AM) UA Urobilinogen [0.1-1.0 mg/dL] Negative *NA* (02/23/17 10:39 AM) UA Bili [Negative] Negative (02/23/17 10:39 AM) UA Leuk Est [Negative] Negative (02/23/17 10:39 AM) UA Nitrite [Negative] 4 /HPF (02/23/17 10:39 AM) UA WBC [0-5 /HPF] 6 /HPF *HI* (02/23/17 10:39 AM) UA RBC [0-2 /HPF] Moderate /HPF *ABN* (02/23/17 10:39 AM) UA Bacteria [None Seen /HPF] Occasional /LPF *NA* (02/23/17 10:39 AM) UA Sq Epi [Few /LPF] Many /LPF *ABN* (02/23/17 10:39 AM) UA Mucus [None Seen /LPF] Occasional /HPF *ABN* (02/23/17 10:39 AM) UA Gustavus Yeast [None Seen /HPF] IMMUNOLOGY 1 2 3 Most recent to oldest [Reference Range]: <0.03 nMol/L 1 *NA* (02/25/17 9:20 AM) ACHr Binding Ab [0.00-0.24 nMol/L] 14 % 2 *NA* (02/25/17 9:20 AM) ACHr Block Ab [0-25 %] <12 % 3 *NA* (02/25/17 9:20 AM) ACHr Mod Ab [0-20 %] Negative 4 *NA* (02/25/17 9:20 AM) Striated Muscle IgG [Neg:<1:40] 1Result Comment: Negative: 0.00 - 0.24 Borderline: 0.25 - 0.40 Positive: > 0.40 2Result Comment: Negative: 0 - 25 Borderline: 26 - 30 Positive: >30 Results for this test are for research purposes only by the assay's senior gamemaster. The performance characteristics of this product have not been established. Results should not be used as a diagnostic procedure without confirmation of the diagnosis by another medically established diagnostic product or procedure. 3Result Comment: Negative: <21 Equivocal: 21 - 25 Positive: >25 The assay is linear between values of 12 and 64. Those <12 and >64 are reported as such. No single value for ACR-modulating antibody should be used as a sole basis for diagnosis or response to therapy. 4Result Comment: Performed At: [address] [id number] Guevara Dawson MD Ph:[phone] HEMATOLOGY 1 2 3 Most recent to oldest [Reference Range]: 10.2 K/CMM (02/28/17 9:32 AM) 8.0 K/CMM (02/26/17 4:52 AM) 8.1 K/CMM (02/24/17 3:39 AM) WBC [3.7-10.4 K/CMM] 4.89 M/CMM (02/28/17 9:32 AM) 4.83 M/CMM (02/26/17 4:52 AM) 4.87 M/CMM (02/24/17 3:39 AM) RBC [4.20-5.40 M/CMM] 13.8 g/dL (02/28/17 9:32 AM) 13.8 g/dL (02/26/17 4:52 AM) 13.8 g/dL (02/24/17 3:39 AM) Hgb [12.0-16.0 g/dL] 41.1 % (02/28/17 9:32 AM) 40.0 % (02/26/17 4:52 AM) 40.5 % (02/24/17 3:39 AM) Hct [36.0-48.0 %] 83.9 fL (02/28/17 9:32 AM) 82.9 fL (02/26/17 4:52 AM) 83.1 fL (02/24/17 3:39 AM) MCV [80.0-98.0 fL] 28.2 pg (02/28/17 9:32 AM) 28.6 pg (02/26/17 4:52 AM) 28.2 pg (02/24/17 3:39 AM) MCH [27.0-31.0 pg] 33.6 g/dL (02/28/17 9:32 AM) 34.5 g/dL (02/26/17 4:52 AM) 34.0 g/dL (02/24/17 3:39 AM) MCHC [32.0-36.0 g/dL] 14.7 % *HI* (02/28/17 9:32 AM) 14.3 % (02/26/17 4:52 AM) 14.3 % (02/24/17 3:39 AM) RDW [11.5-14.5 %] 205 K/CMM (02/28/17 9:32 AM) 222 K/CMM (02/26/17 4:52 AM) 256 K/CMM (02/24/17 3:39 AM) Platelet [133-450 K/CMM] 7.0 fL *LOW* (02/28/17 9:32 AM) 6.8 fL *LOW* (02/26/17 4:52 AM) 6.8 fL *LOW* (02/24/17 3:39 AM) MPV [7.4-10.4 fL] 84.4 % *HI* (02/28/17 9:32 AM) 74.0 % (02/26/17 4:52 AM) 72.7 % (02/24/17 3:39 AM) Segs [45.0-75.0 %] 8.5 % *LOW* (02/28/17 9:32 AM) 15.8 % *LOW* (02/26/17 4:52 AM) 17.0 % *LOW* (02/24/17 3:39 AM) Lymphocytes [20.0-40.0 %] 6.4 % (02/28/17 9:32 AM) 8.8 % (02/26/17 4:52 AM) 9.4 % (02/24/17 3:39 AM) Monocytes [2.0-12.0 %] 0.2 % (02/28/17 9:32 AM) 0.6 % (02/26/17 4:52 AM) 0.2 % (02/24/17 3:39 AM) Eosinophils [0.0-4.0 %] 0.5 % (02/28/17 9:32 AM) 0.8 % (02/26/17 4:52 AM) 0.7 % (02/24/17 3:39 AM) Basophils [0.0-1.0 %] 8.6 K/CMM *HI* (02/28/17 9:32 AM) 5.9 K/CMM (02/26/17 4:52 AM) 5.9 K/CMM (02/24/17 3:39 AM) Segs-Bands # [1.5-8.1 K/CMM] 0.9 K/CMM *LOW* (02/28/17 9:32 AM) 1.3 K/CMM (02/26/17 4:52 AM) 1.4 K/CMM (02/24/17 3:39 AM) Lymphocytes # [1.0-5.5 K/CMM] 0.7 K/CMM (02/28/17 9:32 AM) 0.7 K/CMM (02/26/17 4:52 AM) 0.8 K/CMM (02/24/17 3:39 AM) Monocytes # [0.0-0.8 K/CMM] 0.1 K/CMM (02/28/17 9:32 AM) 0.1 K/CMM (02/26/17 4:52 AM) 0.1 K/CMM (02/24/17 3:39 AM) Basophils # [0.0-0.2 K/CMM] 13.6 seconds (02/23/17 10:39 AM) PT [12.0-14.7 seconds] 1.04 (02/23/17 10:39 AM) INR [0.85-1.17] 29.7 seconds (02/23/17 10:39 AM) PTT [22.9-35.8 seconds] Immunizations Not Given Vaccine Date Status Refusal Reason pneumococcal 13-valent vaccine 08/09/16 Not Given Patient Refuses Procedures Procedure Date Related Diagnosis Body Site Cholecystostomy Social History Social History Type Response Alcohol Type Liquor. Frequency: 1-2 times per week. Last use: today. Smoking Status Former smoker; Type: Cigarettes; Exposure to Tobacco Smoke None; Cigarette Smoking Last 365 Days No; Reg Smoking Cessation Counseling No Assessment and Plan Extracted from: Title: Clinical Document Author: Gregor Carrillo MD Date: 03/01/17 PM&R PROGRESS NOTE CHIEF COMPLAINT AND IDENTIFICATION: A 76-year-old lady with debility, disuse atrophy and cerebrovascular disease being seen for ongoing rehabilitation needs. INTERVAL EVENTS AND SUBJECTIVE: All interval events reviewed. No new complaints of fevers, chills, nausea, vomiting, chest pain, palpitations, headaches, or dizziness. No new bowel or bladder complaints. She continues to have slow remobilization with the therapy services max to total assist. No new numbness, tingling, or weakness otherwise. PHYSICAL EXAMINATION: Vitals and Temp: VitalsTmp(F)[id number] 03/01 11:[id number]/75--96--- 03/01 07:[id number]/91--96--- 03/01 04:[id number]--- 03/01 00:[id number]--- 02/28 20:[id number]--- 24 Hr Tmax: 99.3F (37.39c) at 03/01 11:22Vital Signs are the last 5 in the past 48 hours. GENERAL: Thin, frail, lying in bed, no apparent distress. PSYCH: Sleepy but otherwise oriented, pleasant. HEENT: Pupils equal, round, reactive to light. Extraocular muscles intact. Moist mucous membranes. CARDIOVASCULAR: 2+ bilateral upper extremity pulses, regular rate and rhythm all extremities, warm, well-perfused. PULMONARY: Respirations unlabored, no new dyspnea. ABDOMEN: Doughy, nontender, nondistended. GENITOURINARY: No Jacques. SKIN: No new breakdown. NEUROMUSCULOSKELETAL: She continues with 3/5 weakness in the bilateral upper extremities, shoulders and elbow flexion, 4/5 wrist extension, finger flexion 2/5, hip flexion 3/5, knee extension 4/5, ankle dorsiflexion. No new hypertonicity or clonus. LABORATORY DATA: Labs (Last four charted values) WBC 10.2(FEB 28)8.0(FEB 26)8.1(FEB 24)9.4(FEB 23) Hgb 13.8(FEB 28)13.8(FEB 26)13.8(FEB 24)15.5(FEB 23) Hct 41.1(FEB 28)40.0(FEB 26)40.5(FEB 24)46.0(FEB 23) Plt 205(FEB 28)222(FEB 26)256(FEB 24)288(FEB 23) Na 136(FEB 28)135(FEB 26)L 133(FEB 24)L 132(FEB 23) K L 3.4(FEB 28)3.7(FEB 26)3.6(FEB 24)3.7(FEB 23) CO2 26(FEB 28)26(FEB 26)25(FEB 24)27(FEB 23) Cl 99(FEB 28)99(FEB 26)100(FEB 24)95(FEB 23) Cr 0.54(FEB 28)L 0.40(FEB 26)L 0.46(FEB 24)0.53(FEB 23) BUN 12(FEB 28)12(FEB 26)20(FEB 24)H 24(FEB 23) Glucose Random H 126(FEB 28)98(FEB 26)93(FEB 24)H 117(FEB 23) Ca 8.6(FEB 28)8.7(FEB 26)8.6(FEB 24)8.6(FEB 23) PT 13.6(FEB 23) INR 1.04(FEB 23) PTT 29.7(FEB 23) Troponin <0.02(FEB 23) CK MB <0.5(FEB 23) Total CK 20(FEB 23) DIAGNOSTIC IMAGING: No new imaging. ASSESSMENT AND PLAN: A 76-year-old lady with: 1. Debility. 2. Disuse atrophy. 3. Cardiopulmonary intolerance to activity. 4. Generalized weakness, proximal greater than distal. 5. 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 6. Altered skin integrity was sacral skin breakdown. 7. Medication induced Parkinsonism. RECOMMENDATIONS: 1. I have reviewed the internal medicine and the neurology notes. Neurology has been adjusting her medications. There are starting her on the carbidopa/levodopa. They have made available seroquel for nighttime agitation symptoms. Overall appearing the same this morning. 2. She continues to have generalized weakness. I reviewed all the interval therapy notes. She continues to require max to total assist. 3. We will continue the remobilization program with PT and OT with goals of progressing mobility, ADLs, IADLs identification of adaptive equipment and caregiver training. Per OT, tolerated session well. 4. Case management is involved and we are looking at a long-term center placement for ongoing rehabilitation with goals of progressing to a point to return home with family."
--- OUTSIDE RECORDS SUMMARY | 2018-03-04 11:32 | XMS REPORT | Continuity of Care Document ---
Author Author [facility] Interface Address Unknown Phone Unavailable Problems Problem Status Onset Date Classification Date Reported Comments Source PAIN Active 02/23/2017 [facility] STROKE Active 02/23/2017 [facility] DIARRHEA Active 08/08/2016 [facility] ACUTE COLITIS Active 08/08/2016 [facility] Diarrhea Resolved 08/07/2016 Problem 03/04/2017 [facility] Discharge Diagnosis: Closed fracture of left patella with routine healing 07/14/2016 07/17/2016 [facility] Discharge Diagnosis: Facial injury 07/14/2016 07/17/2016 [facility] Discharge Diagnosis: Unspecified fall, initial encounter 07/14/2016 07/17/2016 [facility] FALL Active 07/14/2016 [facility] Discharge Diagnosis: Acute lower UTI 04/02/2015 04/05/2015 [facility] CHILLS Active 04/02/2015 [facility] PATELLAR FX; HUMERUS FX; INABILITY TO WA Active 02/15/2015 [facility] LEG PAIN Active 02/15/2015 [facility] L HUMERUS FX R PATELLA FX Active 02/13/2015 [facility] HEADACHE Active 11/30/2014 [facility] Anxiety Active Problem 03/04/2017 [facility] Hypertension Active Problem 03/04/2017 [facility] Facial nerve Active Problem 04/05/2015 [facility] Final: Unspecified fracture of unspecified patella, initial encounter for closed fracture 02/20/2015 [facility] Accidental fall Resolved Problem 03/04/2017 [facility] Depression Resolved Problem 03/04/2017 [facility] History of shingles Resolved Problem 03/04/2017 [facility] Seizures Resolved Problem 03/04/2017 [facility] UNSP FRACTURE OF UNSP PATELLA, INIT FOR Active [facility] NONINFECTIVE GASTROENTERITIS AND COLITIS Active [facility] CEREBRAL INFARCTION, UNSPECIFIED Active [facility] Medications Medication Details Route Status Patient Instructions Ordering Provider Order Date Source QUEtiapine 25 mg oral tablet 25 mg=1 tab, PO, BID, PRN Agitation | agitation/hallucinations, 0 Refill(s) Active 03/01/2017 [facility] carbidopa-levodopa 25 mg-100 mg oral tablet 1 tab, PO, TID, 0 Refill(s) Active 03/01/2017 [facility] aspirin 81 mg tablet, enteric coated 81 mg=1 tab, PO, Daily, 0 Refill(s) Active 03/01/2017 [facility] famotidine 20 mg oral tablet 20 mg, 1 tab, Route: PO, Drug form: TAB, Daily, Dosing Weight 61.364, kg, Start date: 02/28/17 9:00:00 CDT, Duration: 30 day, Stop date: 03/29/17 9:00:00 CSTNotes: (Same as: Pepcid) No Longer Active 02/28/2017 [facility] QUEtiapine 25 mg, 1 tab, Route: PO, Drug form: TAB, BID, Dosing Weight 61.364, kg, PRN Agitation, Start date: 02/26/17 11:49:00 CDT, Duration: 30 day, Stop date: 03/28/17 11:48:00 [employer], agitation/hallucinationsN otes: (Same as: SEROquel) No Longer Active 02/26/2017 [facility] carbidopa-levodopa 25 mg-100 mg oral tablet 1 tab, Route: PO, Drug Form: TAB, Dosing Weight 61.364, kg, TID, NOW, Start date: 02/26/17 11:27:00 CDT, Duration: 30 day, Stop date: 03/28/17 9:00:00 CSTNotes: Take with milk or food. (Same As: Sinemet) No Longer Active 02/26/2017 [facility] enalapril 10 mg, 1 tab, Route: PO, Drug form: TAB, Daily, Dosing Weight 61.364, kg, Start date: 02/26/17 9:00:00 CDT, Duration: 30 day, Stop date: 03/27/17 9:00:00 CSTNotes: (Same as: Vasotec) No Longer Active 02/26/2017 [facility] Risperdal 2 mg, 4 tab, Route: PO, Drug form: TAB, Daily, Dosing Weight 61.364, kg, Start date: 02/26/17 9:00:00 CDT, Duration: 30 day, Stop date: 03/27/17 9:00:00 CSTNotes: (Same as: Risperdal) Inactive 02/26/2017 [facility] sertraline 50 mg, 1 tab, Route: PO, Drug form: TAB, Daily, Dosing Weight 61.364, kg, Start date: 02/26/17 9:00:00 CDT, Duration: 30 day, Stop date: 03/27/17 9:00:00 CSTNotes: (Same as: Zoloft) No Longer Active 02/26/2017 [facility] aspirin 81 mg tablet, enteric coated 81 mg, 1 tab, Route: PO, Drug form: ECTAB, Daily, Dosing Weight 61.364, kg, Start date: 02/24/17 9:00:00 CDT, Duration: 30 day, Stop date: 03/25/17 9:00:00 CSTNotes: Do not crush or chew. (Same As: Ecotrin) No Longer Active 02/24/2017 [facility] Saline Flush 0.9% 10 ml, Route: IVP, Drug Form: INJ, Dosing Weight 61.364, kg, Q12H, Start date: 02/23/17 21:00:00 CDT, Duration: 30 day, Stop date: 03/25/17 9:00:00 CSTNotes: (Same as: BD Posiflush) No Longer Active 02/24/2017 [facility] atorvastatin 80 mg, 2 tab, Route: PO, Drug form: TAB, Bedtime, Dosing Weight 61.364, kg, Start date: 02/23/17 21:00:00 CDT, Duration: 30 day, Stop date: 03/24/17 21:00:00 CSTNotes: (Same as: Lipitor) No Longer Active 02/24/2017 [facility] enoxaparin 40 mg, 0.4 mL, Route: SUB-Q, Drug form: INJ, [id number], Dosing Weight 61.364, kg, Start date: 02/23/17 16:00:00 CDT, Duration: 30 day, Stop date: 03/24/17 16:00:00 CSTNotes: (Same as: Lovenox) No Longer Active 02/23/2017 [facility] Saline Flush 0.9% 10 ml, Route: IVP, Drug Form: INJ, Dosing Weight 61.364, kg, PRN, PRN Line Flush, Start date: 02/23/17 15:25:00 CDT, Duration: 30 day, Stop date: 03/25/17 14:24:00 CSTNotes: (Same as: BD Posiflush) No Longer Active 02/23/2017 [facility] acetaminophen 650 mg, 2 tab, Route: PO, Drug form: TAB, Q4H, Dosing Weight 61.364, kg, PRN Pain 1-3/Temp > 99.5 F, Start date: 02/23/17 15:25:00 CDT, Duration: 30 day, Stop date: 03/25/17 15:24:00 CSTNotes: Do not exceed 4 gm/day. (Same as: Tylenol) No Longer Active 02/23/2017 [facility] ondansetron 4 mg, 2 mL, Route: IVP, Drug form: INJ, Q8H, Dosing Weight 61.364, kg, PRN Nausea & Vomiting, Start date: 02/23/17 15:25:00 CDT, Duration: 30 day, Stop date: 03/25/17 15:24:00 CSTNotes: (Same as: Zofran) MEDICATION WASTE Product Size: 4 mg Product Wasted: ___ mg No Longer Active 02/23/2017 [facility] sertraline 50 mg oral tablet 50 mg=1 tab, PO, Daily, # 30 tab, 0 Refill(s) Active 02/23/2017 [facility] Risperdal 2 mg oral tablet 2 mg=1 tab, PO, Daily, # 60 tab, 0 Refill(s) No Longer Active 02/23/2017 [facility] aspirin 325 mg, Route: PO, Drug form: TAB, ONCE, Dosing Weight 54.545, kg, Priority: STAT, Start date: 02/23/17 12:21:00 CDT, Stop date: 02/23/17 12:21:00 CDT Inactive 02/23/2017 [facility] GI cocktail 30 mL, Route: PO, Dosing Weight 54.545, kg, ONCE, STAT, Start date: 02/23/17 11:40:00 CDT, Stop date: 02/23/17 11:40:00 CDT Inactive 02/23/2017 [facility] pantoprazole 40 mg, Route: IVP, ONCE, Dosing Weight 54.545, kg, Priority: STAT, Start date: 02/23/17 11:40:00 CDT, Stop date: 02/23/17 11:40:00 CDT Inactive 02/23/2017 [facility] guaiFENesin 100 mg, Route: PO, ONCE, Dosing Weight 54.545, kg, Start date: 02/23/17 11:40:00 CDT, Stop date: 02/23/17 11:40:00 CDT Inactive 02/23/2017 [facility] Sodium Chloride 0.9% (Bolus) IV 1,000 mL, 1000 ml/hr, Infuse Over: 1 hr, Route: IV, 1,000, Drug form: INJ, ONCE, Priority: STAT, Dosing Weight 54.545 kg, Start date: 02/23/17 10:40:00 CDT, Duration: 1 doses or times, Stop date: 02/23/17 10:40:00 CDT Inactive 02/23/2017 [facility] NS (Bolus) IV 1,000 mL, 1,000 ml/hr, Infuse Over: 1 hr, Route: IV, ONCE, Priority: STAT, Dosing Weight 54.545 kg, Start date: 02/23/17 10:36:00 CDT, Duration: 1 doses or times, Stop date: 02/23/17 10:36:00 CDT Inactive 02/23/2017 [facility] Saline Flush 0.9% 10 mL, Route: IVP, Drug Form: INJ, Dosing Weight 54.545, kg, PRN, PRN Line Flush, Start date: 02/23/17 10:34:00 CDT, Duration: 30 day, Stop date: 03/25/17 9:33:00 CSTNotes: (Same as: BD Posiflush) Inactive 02/23/2017 [facility] pantoprazole 40 mg oral enteric coated tablet 40 mg=1 tab, PO, BID-Before Meals, 0 Refill(s) Active 08/19/2016 [facility] sertraline 50 mg oral tablet 25 mg=0.5 tab, PO, Bedtime, 0 Refill(s) Active 08/19/2016 [facility] Melatonin 3 MG Extended Release Tablet 3 mg=1 tab, PO, Bedtime, PRN Sleep, 0 Refill(s) Active 08/19/2016 [facility] Levetiracetam 500 MG Oral Tablet [Keppra] 500 mg=1 tab, PO, Q12H, 0 Refill(s) Active 08/19/2016 [facility] Atropine 0.5 mg, Route: IVP, PRN, Dosing Weight 72.784, kg, PRN Bradycardia, Start date: 08/18/16 19:10:00 CDT, Duration: 30 day, Stop date: 09/17/16 19:09:00 CDT Inactive 08/19/2016 [facility] Nitroglycerin 0.4 MG Sublingual Tablet 0.4 mg, 1 tab, Route: SL, Drug form: TAB, Q5Min, Dosing Weight 72.784, kg, PRN Chest Pain, Start date: 08/18/16 19:10:00 CDT, Duration: 30 day, Stop date: 09/17/16 19:09:00 CDT Inactive 08/19/2016 [facility] Nitroglycerin 0.4 MG Sublingual Tablet 0.4 mg, 1 tab, Route: SL, Drug form: TAB, Q5Min, Dosing Weight 72.784, kg, PRN Chest Pain, Start date: 08/17/16 2:36:00 CDT, Duration: 30 day, Stop date: 09/16/16 2:35:00 CDTNotes: (Same as:Nitroquick, Nitrostat) "Do Not Crush" Sublingual tablet No Longer Active 08/17/2016 [facility] Atropine 0.5 mg, 5 mL, Route: IV, Drug form: INJ, PRN, Dosing Weight 72.784, kg, PRN Bradycardia, Start date: 08/17/16 2:36:00 CDT, Duration: 30 day, Stop date: 09/16/16 2:35:00 CDT No Longer Active 08/17/2016 [facility] Zoloft 25 mg, 0.5 tab, Route: PO, Drug form: TAB, Bedtime, Dosing Weight 72.784, kg, Start date: 08/15/16 21:24:00 CDT, Duration: 30 day, Stop date: 09/14/16 21:00:00 CDTNotes: (Same as: Zoloft) No Longer Active 08/16/2016 [facility] Levetiracetam 500 MG Oral Tablet [Keppra] 500 mg, 1 tab, Route: PO, Drug form: TAB, Q12H, Dosing Weight 72.784, kg, Start date: 08/15/16 21:00:00 CDT, Duration: 30 day, Stop date: 09/14/16 9:00:00 CDTNotes: (Same as:Keppra) No Longer Active 08/16/2016 [facility] potassium chloride 40 mEq, 2 tab, Route: PO, Drug form: ERTAB, ONCE, Dosing Weight 72.784, kg, Start date: 08/14/16 13:25:00 CDT, Stop date: 08/14/16 13:25:00 CDTNotes: (Same as: K-Dur 20) "Do Not Crush" With food and full glass of water Inactive 08/14/2016 [facility] Flagyl 500 mg, 1 tab, Route: PO, Drug form: TAB, [id number], Start date: 08/12/16 0:00:00 CDT, Duration: 30 day, Stop date: 09/10/16 16:00:00 CDTNotes: (Same as: Flagyl) Take with food/ avoid alcohol Inactive 08/12/2016 [facility] Ativan 0.5 mg, 0.25 mL, Route: IVP, Drug form: INJ, Q6H, Dosing Weight 72.784, kg, PRN Anxiety, Start date: 08/11/16 23:00:00 CDT, Duration: 30 day, Stop date: 09/10/16 22:59:00 CDTNotes: (Same as: Ativan) No Longer Active 08/12/2016 [facility] Lexapro PO, Daily, 0 Refill(s) Active 08/12/2016 [facility] Lorazepam 1 mg, 0.5 mL, Route: IV, Drug form: INJ, Q1H, Dosing Weight 72.784, kg, PRN Seizure, for any seizure greater than 2 minutes, Start date: 08/11/16 21:56:00 CDT, Duration: 30 day, Stop date: 09/10/16 2 1:55:00 CDTNotes: (Same as: Ativan) No Longer Active 08/12/2016 [facility] Lorazepam 1 mg, 0.5 mL, Route: IV, Drug form: INJ, ONCE, Dosing Weight 72.784, kg, Priority: NOW, Start date: 08/11/16 21:44:00 CDT, Stop date: 08/11/16 21:44:00 CDTNotes: (Same as: Ativan) Inactive 08/12/2016 [facility] Cipro 500 mg, 1 tab, Route: PO, Drug form: TAB, [id number], Start date: 08/11/16 21:00:00 CDT, Duration: 30 day, Stop date: 09/10/16 9:00:00 CDTNotes: May interfere w/enteral feedings - Take 1 hr before or 2 hrs after antacids, dairy pdt & minerals. On empty stomach. No Longer Active 08/12/2016 [facility] Aspirin 325 mg, Route: PO, ONCE, Dosing Weight 72.784, kg, Start date: 08/11/16 20:52:00 CDT, Stop date: 08/11/16 20:52:00 CDT Inactive 08/12/2016 [facility] pantoprazole 40 mg, 1 tab, Route: PO, Drug form: ECTAB, BID-Before Meals, Dosing Weight 72.784, kg, Start date: 08/11/16 7:30:00 CDT, Duration: 30 day, Stop date: 09/09/16 16:30:00 CDTNotes: Tablet should not be chewed or crushed. (Same as: Protonix) No Longer Active 08/11/2016 [facility] Melatonin 3 MG Extended Release Tablet 3 mg, 1 tab, Route: PO, Drug Form: TAB, Dosing Weight 72.784, kg, Bedtime, PRN Sleep, Start date: 08/10/16 18:19:00 CDT, Duration: 30 day, Stop date: 09/09/16 18:18:00 CDTNotes: (Same as: Melatonin) No Longer Active 08/10/2016 [facility] potassium chloride 40 mEq, 2 tab, Route: PO, Drug form: ERTAB, ONCE, Dosing Weight 72.784, kg, Start date: 08/10/16 9:00:00 CDT, Stop date: 08/10/16 9:00:00 CDTNotes: (Same as: K-Dur 20) "Do Not Crush" With food and full glass of water Inactive 08/10/2016 [facility] Nortriptyline 20 mg, 2 cap, Route: PO, Drug form: CAP, Bedtime, Dosing Weight 72.784, kg, Start date: 08/09/16 21:00:00 CDT, Duration: 30 day, Stop date: 09/07/16 21:00:00 CDTNotes: (Same as:Pamelor, Aventyl) No Longer Active 08/10/2016 [facility] Morphine 4 mg, 1 mL, Route: IVP, Drug form: SOLN, Q4H, Dosing Weight 72.784, kg, PRN Pain Score 6-10, Start date: 08/09/16 19:32:00 CDT, Duration: 30 day, Stop date: 09/08/16 19:31:00 CDTNotes: (Same as:MORPhine Sulfate) No Longer Active 08/10/2016 [facility] Restoril 15 mg, 1 cap, Route: PO, Drug form: CAP, Bedtime, Dosing Weight 72.784, kg, PRN Sleep, Start date: 08/09/16 18:01:00 CDT, Duration: 30 day, Stop date: 09/08/16 18:00:00 CDTNotes: (Same As: Restoril) No Longer Active 2016 [facility] Restoril 7.5 mg, 1 cap, Route: PO, Drug form: CAP, Bedtime, Dosing Weight 72.784, kg, PRN Sleep, Start date: 08/09/16 18:00:00 CDT, Duration: 30 day, Stop date: 09/08/16 17:59:00 CDTNotes: (Same As: Restoril) Inactive 2016 [facility] Lovenox 40 mg, 0.4 mL, Route: SUB-Q, Drug form: INJ, [id number], Dosing Weight 72.784, kg, Start date: 08/09/16 18:00:00 CDT, Duration: 30 day, Stop date: 09/07/16 18:00:00 CDTNotes: (Same as: Lovenox) No Longer Active 2016 [facility] Morphine 4 mg, 1 mL, Route: IVP, Drug form: SOLN, ONCE, Dosing Weight 72.784, kg, Start date: 08/09/16 17:54:00 CDT, Stop date: 08/09/16 17:54:00 CDTNotes: (Same as:MORPhine Sulfate) Inactive 2016 [facility] Streptococcus pneumoniae serotype 1 capsular antigen diphtheria [id number] protein conjugate vaccine / Streptococcus pneumoniae serotype 14 capsular antigen diphtheria [id number] protein conjugate vaccine / Streptococcus pneumoniae serotype 18C capsular antigen d 0.5 mL, Route: IM, Drug Form: INJ, Daily, Start date: 08/09/16 9:00:00 CDT, Stop date: 08/09/16 11:00:00 CDTNotes: Lightly roll vial (DO NOT SHAKE) before administration. (Same as: Prevnar 13) Inactive 2016 [facility] Ciprofloxacin 400 mg, 200 mL, Route: IVPB, Drug form: INJ, [id number], Dosing Weight 72.784, kg, Start date: 08/09/16 9:00:00 CDT, Duration: 30 day, Stop date: 09/07/16 21:00:00 CDTNotes: Do not refrigerate No Longer Active 2016 [facility] pantoprazole 40 mg, 1 tab, Route: PO, Drug form: ECTAB, Daily, Dosing Weight 72.784, kg, Start date: 08/09/16 9:00:00 CDT, Duration: 30 day, Stop date: 09/07/16 9:00:00 CDTNotes: Tablet should not be chewed or cr ushed. (Same as: Protonix) No Longer Active 2016 [facility] Verapamil 240 mg, Route: PO, Drug form: ERTAB, Daily, Dosing Weight 72.784, kg, Start date: 08/09/16 9:00:00 CDT, Duration: 30 day, Stop date: 09/07/16 9:00:00 CDT No Longer Active 2016 [facility] multivitamin with minerals 1 tab, Route: PO, Drug Form: TAB, Dosing Weight 72.784, kg, Daily, Start date: 08/09/16 9:00:00 CDT, Duration: 30 day, Stop date: 09/07/16 9:00:00 CDTNotes: (Same as:Thera-M, Theragran-M) WASTE: F/P - Black; E - Municipal Trash Bin Give with food. No Longer Active 2016 [facility] Vitamin D2 400 IntlUnit, Route: PO, Daily, Dosing Weight 72.784, kg, Start date: 08/09/16 9:00:00 CDT, Duration: 30 day, Stop date: 09/07/16 9:00:00 CDT Inactive 2016 [facility] enalapril 10 mg, 1 tab, Route: PO, Drug form: TAB, Daily, Dosing Weight 72.784, kg, Start date: 08/09/16 9:00:00 CDT, Duration: 30 day, Stop date: 09/07/16 9:00:00 CDTNotes: (Same as: Vasotec) No Longer Active 2016 [facility] Vitamin D3 400 IntlUnit, 1 tab, Route: PO, Drug form: TAB, Daily, Start date: 08/09/16 9:00:00 CDT, Duration: 30 day, Stop date: 09/07/16 9:00:00 CDTNotes: Same as Vitamin D3 Inactive 2016 [facility] tramadol 50 mg oral tablet 100 mg, 2 tab, Route: PO, Drug form: TAB, Q6H, PRN Pain Score 7-10, Start date: 08/09/16 8:06:00 CDT, Duration: 30 day, Stop date: 09/08/16 8:05:00 CDTNotes: Not to exceed 400mg/day. (Same As: Ultram) No Longer Active 2016 [facility] Hydralazine 10 mg, 0.5 mL, Route: IVP, Drug form: INJ, Q4H, Dosing Weight 72.784, kg, PRN Elevated BP, Start date: 08/09/16 8:05:00 CDT, Duration: 30 day, Stop date: 09/08/16 8:04:00 CDT, SBP>160mmHgNotes: (Same as: Apresoline) Push over 5 minutes No Longer Active 2016 [facility] Metronidazole 500 mg, 100 mL, Route: IVPB, Drug form: INJ, [id number], Dosing Weight 72.784, kg, Start date: 08/09/16 8:00:00 CDT, Duration: 30 day, Stop date: 09/08/16 0:00:00 CDTNotes: (Same as: Flagyl) Avoid alcohol. No Longer Active 2016 [facility] tramadol hydrochloride 50 MG Oral Tablet 50 mg, 1 tab, Route: PO, Drug form: TAB, Q6H, Dosing Weight 72.784, kg, PRN Pain Score 6-10, Start date: 08/09/16 7:59:00 CDT, Duration: 30 day, Stop date: 09/08/16 7:58:00 CDTNotes: Not to exceed 400mg/day. (Same As: Ultram) No Longer Active 2016 [facility] Ondansetron 4 mg, 2 mL, Route: IVP, Drug form: INJ, Q8H, Dosing Weight 72.784, kg, PRN Nausea & Vomiting, Start date: 08/09/16 7:52:00 CDT, Duration: 30 day, Stop date: 09/08/16 7:51:00 CDTNotes: (Same as: Zofran) MEDICATION WASTE Product Size: 4 mg Product Wasted: ___ mg No Longer Active 2016 [facility] Bentyl 20 mg, 1 tab, Route: PO, Drug form: TAB, ONCE, Dosing Weight 70.455, kg, Start date: 08/09/16 5:16:00 CDT, Stop date: 08/09/16 5:16:00 CDTNotes: (Same as: Bentyl) Inactive 2016 [facility] Flagyl 500 mg, Route: IVPB, ONCE, Dosing Weight 70.455, kg, Priority: STAT, Start date: 08/09/16 2:55:00 CDT, Stop date: 08/09/16 2:55:00 CDT Inactive 2016 [facility] Cipro 400 mg, Route: IVPB, ONCE, Dosing Weight 70.455, kg, Priority: STAT, Start date: 08/09/16 2:55:00 CDT, Stop date: 08/09/16 2:55:00 CDT Inactive 2016 [facility] Zofran 4 mg, Route: IVP, Drug form: INJ, ONCE, Dosing Weight 70.455, kg, Priority: STAT, Start date: 08/09/16 1:39:00 CDT, Stop date: 08/09/16 1:39:00 CDT Inactive 2016 [facility] Morphine 2 mg, Route: IVP, ONCE, Dosing Weight 70.455, kg, Priority: STAT, Start date: 08/09/16 1:39:00 CDT, Stop date: 08/09/16 1:39:00 CDT Inactive 2016 [facility] Zofran 4 mg, 2 mL, Route: IVP, Drug form: INJ, ONCE, Dosing Weight 70.455, kg, Priority: STAT, Start date: 08/08/16 22:08:00 CDT, Stop date: 08/08/16 22:08:00 CDTNotes: (Same as: Zofran) MEDICATION WASTE Product Size: 4 mg Product Wasted: 0___ mg Inactive 2016 [facility] Acetaminophen 325 MG / Hydrocodone Bitartrate 5 MG Oral Tablet [[place] 5/325] 1 tab, Route: PO, Drug Form: TAB, Dosing Weight 70.455, kg, ONCE, STAT, Start date: 08/08/16 22:01:00 CDT, Stop date: 08/08/16 22:01:00 CDTNotes: (Same as: [place] 325/5) Do not exceed 4gm/day of acetaminophen. Inactive 2016 [facility] Saline Flush 0.9% 10 mL, Route: IVP, Drug Form: INJ, Dosing Weight 70.455, kg, PRN, PRN Line Flush, Start date: 08/08/16 17:28:00 CDT, Duration: 30 day, Stop date: 09/07/16 17:27:00 CDTNotes: (Same as: BD Posiflush) No Longer Active 08/08/2016 [facility] Sodium Chloride 0.154 MEQ/ML Injectable Solution 1,000 mL, 1,000 ml/hr, Infuse Over: 1 hr, Route: IV, 1,000, Drug form: INJ, ONCE, Priority: STAT, Dosing Weight 70.455 kg, Start date: 08/08/16 17:27:00 CDT, Duration: 1 doses or times, Stop date: 08/08/16 17:27:00 CDT Inactive 08/08/2016 [facility] Motrin 600 mg oral tablet 600 mg=1 tab, PO, Q6H, PRN Pain, take with food, X 10 day, # 40 tab, 0 Refill(s) Active 07/14/2016 [facility] Macrobid 100 mg, 1 cap, Route: PO, Drug form: CAP, ONCE, Dosing Weight 72.727, kg, Priority: STAT, Start date: 04/02/15 20:49:00, Stop date: 04/02/15 20:49:00Notes: Not Recommended for patients with CrCl Inactive 04/03/2015 [facility] Acetaminophen 500 MG Oral Tablet [Tylenol] 500 mg=1 tab, PO, Q6H, PRN Fever, X 10 day, # 40 tab, 0 Refill(s) Active 04/03/2015 [facility] Nitrofurantoin 100 MG Oral Capsule [Macrobid] 100 mg=1 cap, PO, BID, X 7 day, # 14 cap, 0 Refill(s) Active 04/03/2015 [facility] Saline Flush 0.9% 10 mL, Route: IVP, Drug Form: INJ, Dosing Weight 72.727, kg, PRN, PRN Line Flush, Start date: 04/02/15 17:07:00, Duration: 30 day, Stop date: 05/02/15 17:06:00Notes: (Same as: BD Posiflush) Inactive 04/02/2015 [facility] docusate sodium 100 mg oral capsule 100 mg, 1 cap, Route: PO, Drug form: CAP, BID, Dosing Weight 72.727, kg, Start date: 02/17/15 17:00:00, Duration: 30 day, Stop date: 03/19/15 9:00:00Notes: (Same as: Colace) (Do Not Crush) Inactive 02/17/2015 [facility] tramadol hydrochloride 50 MG Oral Tablet 1-2 tab, PO, Q6H, PRN Pain, # 24 tab, 0 Refill(s) Active 02/17/2015 [facility] Dulcolax Laxative 10 mg, 2 tab, Route: PO, Drug form: ECTAB, Daily, Dosing Weight 72.727, kg, Priority: NOW, Start date: 02/17/15 10:12:00, Duration: 30 day, Stop date: 03/19/15 9:00:00Notes: (Same As: Dulcolax, Corre ctol) (Do Not Crush) "Do Not Crush" Inactive 02/17/2015 [facility] Tramadol 50 mg, 1 tab, Route: PO, Drug form: TAB, Q6H, Dosing Weight 72.727, kg, PRN Pain Score 4-6, Start date: 02/17/15 10:12:00, Duration: 30 day, Stop date: 03/19/15 10:11:00Notes: Not to exceed 400mg/day. (Same As: Ultram) Inactive 02/17/2015 [facility] Verapamil 240 mg, 1 tab, Route: PO, Drug form: ERTAB, Daily, Dosing Weight 72.727, kg, Start date: 02/17/15 9:00:00, Duration: 30 day, Stop date: 03/18/15 9:00:00Notes: Do not crush or chew.; "Avoid grapefruit and grapefruit juice" (Same As: Calan SR, Isoptin SR) Inactive 02/17/2015 [facility] Omeprazole 20 mg, Route: PO, Drug form: DRC, Daily, Dosing Weight 72.727, kg, Start date: 02/17/15 9:00:00, Duration: 30 day, Stop date: 03/18/15 9:00:00 No Longer Active 02/17/2015 [facility] multivitamin with minerals 1 tab, Route: PO, Drug Form: TAB, Dosing Weight 72.727, kg, Daily, Start date: 02/17/15 9:00:00, Duration: 30 day, Stop date: 03/18/15 9:00:00Notes: (Same as:Thera-M, Theragran-M) Give with food. Inactive 02/17/2015 [facility] Vitamin D2 400 IntlUnit, Route: PO, Daily, Dosing Weight 72.727, kg, Start date: 02/17/15 9:00:00, Duration: 30 day, Stop date: 03/18/15 9:00:00 No Longer Active 02/17/2015 [facility] Protonix 40 mg, 1 tab, Route: PO, Drug form: ECTAB, Before Breakfast, Start date: 02/17/15 7:30:00, Duration: 30 day, Stop date: 03/18/15 7:30:00Notes: Tablet should not be chewed or crushed. (Same as: Protonix) Inactive 02/17/2015 [facility] enalapril 10 mg, 2 tab, Route: PO, Drug form: TAB, Daily, Dosing Weight 72.727, kg, Start date: 02/16/15 23:00:00, Duration: 30 day, Stop date: 03/18/15 9:00:00Notes: (Same as: Vasotec) No Longer Active 02/17/2015 [facility] Nortriptyline 20 mg, 2 cap, Route: PO, Drug form: CAP, Bedtime, Dosing Weight 72.727, kg, Start date: 02/16/15 21:00:00, Duration: 30 day, Stop date: 03/17/15 21:00:00Notes: (Same as:Pamelor, Aventyl) No Longer Active 02/17/2015 [facility] Lorazepam 0.5 mg, 1 tab, Route: PO, Drug form: TAB, BID, Dosing Weight 72.727, kg, PRN as needed for anxiety, Start date: 02/16/15 11:50:00, Duration: 30 day, Stop date: 03/18/15 11:49:00Notes: (Same as: Ativan) No Longer Active 02/16/2015 [facility] Acetaminophen 325 MG / Hydrocodone Bitartrate 7.5 MG Oral Tablet [[place] 7.5/325] 1 tab, Route: PO, Drug Form: TAB, Dosing Weight 72.727, kg, Q6H, PRN Pain Score 7-10, Start date: 02/15/15 21:54:00, Stop date: 03/17/15 21:53:00Notes: Same as [place] 325-7.5mg Do not exceed 4gm/day of acetaminophen. No Longer Active 02/16/2015 [facility] Saline Flush 0.9% 10 ml, Route: IVP, Drug Form: INJ, Dosing Weight 72.727, kg, PRN, PRN Line Flush, Start date: 02/15/15 21:36:00, Duration: 30 day, Stop date: 03/17/15 20:35:00Notes: (Same as: BD Posiflush) No Longer Active 02/16/2015 [facility] Sodium Chloride 0.154 MEQ/ML Injectable Solution 1,000 mL, Rate: 75 ml/hr, Infuse over: 13.3 hr, Route: IV, Dosing Weight 72.727 kg, Total Volume: 1,000, Start date: 02/15/15 21:36:00, Duration: 30 day, Stop date: 03/17/15 21:35:00 No Longer Active 02/16/2015 [facility] Ceftriaxone 1 gm, Route: IVPB, Q24H, Dosing Weight 72.727, kg, Priority: STAT, Start date: 02/15/15 21:36:00, Duration: 30 day, Stop date: 03/16/15 21:36:00Notes: (Same As: Rocephin). Use with 100ml NS mini-bag PLUS and infuse over 30 min MEDICATION WASTE Product Size: 1000 mg Product Wasted: ___ mg No Longer Active 02/16/2015 [facility] Ondansetron 4 mg, 2 mL, Route: IVP, Drug form: INJ, Q6H, Dosing Weight 72.727, kg, PRN Nausea & Vomiting, Start date: 02/15/15 21:36:00, Duration: 30 day, Stop date: 03/17/15 21:35:00Notes: (Same as: Zofran) MEDICATION WASTE Product Size: 4 mg Product Wasted: ___ mg No Longer Active 02/16/2015 [facility] Morphine 2 mg, 1 mL, Route: IVP, Drug form: INJ, Q4H, Dosing Weight 72.727, kg, PRN Pain Score 7-10, Start date: 02/15/15 21:36:00, Duration: 30 day, Stop date: 03/17/15 21:35:00Notes: (Same as:MORPhine Sulfate) No Longer Active 02/16/2015 [facility] enalapril 10 mg, 1 tab, Route: PO, Drug form: TAB, Daily, Dosing Weight 70.455, kg, Start date: 02/15/15 9:00:00, Duration: 30 day, Stop date: 03/16/15 9:00:00Notes: (Same as: Vasotec) No Longer Active 02/15/2015 [facility] Verapamil 240 mg, 1 tab, Route: PO, Drug form: ERTAB, Daily, Dosing Weight 70.455, kg, Start date: 02/15/15 9:00:00, Duration: 30 day, Stop date: 03/16/15 9:00:00Notes: Do not crush or chew.; "Avoid grapefruit and grapefruit juice" (Same As: Calan SR, Isoptin SR) No Longer Active 02/15/2015 [facility] Omeprazole 20 mg, Route: PO, Drug form: DRC, Daily, Dosing Weight 70.455, kg, Start date: 02/15/15 9:00:00, Duration: 30 day, Stop date: 03/16/15 9:00:00 No Longer Active 02/15/2015 [facility] Nortriptyline 20 mg, 2 cap, Route: PO, Drug form: CAP, Bedtime, Dosing Weight 70.455, kg, Start date: 02/14/15 21:00:00, Duration: 30 day, Stop date: 03/15/15 21:00:00Notes: (Same as:Pamelor, Aventyl) Inactive 02/15/2015 [facility] Protonix 40 mg, 1 tab, Route: PO, Drug form: ECTAB, Before Dinner, Start date: 02/14/15 16:30:00, Duration: 30 day, Stop date: 03/15/15 16:30:00Notes: Tablet should not be chewed or crushed. (Same as: Protonix) Inactive 02/14/2015 [facility] Enoxaparin 40 mg, 0.4 mL, Route: SUB-Q, Drug form: INJ, [id number], Dosing Weight 70.455, kg, Start date: 02/14/15 16:00:00, Duration: 30 day, Stop date: 03/15/15 16:00:00Notes: (Same as: Lovenox) Inactive 02/14/2015 [facility] Acetaminophen 325 MG / Hydrocodone Bitartrate 7.5 MG Oral Tablet [[place] 7.5/325] 1-2 tab, PO, Q4-6H, PRN Pain, X 7 day, # 40 tab, 0 Refill(s), given to patient On Hold 02/14/2015 [facility] Lorazepam 0.5 mg, 1 tab, Route: PO, Drug form: TAB, BID, Dosing Weight 70.455, kg, PRN as needed for anxiety, Start date: 02/14/15 13:49:00, Duration: 30 day, Stop date: 03/16/15 13:48:00Notes: (Same as: Ativan) Inactive 02/14/2015 [facility] Acetaminophen 325 MG / Hydrocodone Bitartrate 10 MG Oral Tablet [[place] 10/325] 1 tab, Route: PO, Drug Form: TAB, Dosing Weight 70.455, kg, Q4H, PRN Pain Score 6-10, Start date: 02/14/15 4:32:00, Duration: 30 day, Stop date: 03/16/15 4:31:00Notes: Do not exceed 4gm/day of acetaminophen. (Same as: [place] 325/10) Inactive 02/14/2015 [facility] Morphine 4 mg, 2 mL, Route: IVP, Drug form: INJ, Q4H, Dosing Weight 70.455, kg, PRN Pain Score 7-10, Start date: 02/14/15 1:17:00, Duration: 30 day, Stop date: 03/16/15 1:16:00Notes: (Same as:MORPhine Sulfate) Inactive 02/14/2015 [facility] Ondansetron 4 mg, 2 mL, Route: IVP, Drug form: INJ, Q6H, Dosing Weight 70.455, kg, PRN Nausea & Vomiting, Start date: 02/14/15 1:17:00, Duration: 30 day, Stop date: 03/16/15 1:16:00Notes: (Same as: Zofran) MEDICATION WASTE Product Size: 4 mg Product Wasted: ___ mg Inactive 02/14/2015 [facility] Acetaminophen 325 MG / Hydrocodone Bitartrate 5 MG Oral Tablet [[place] 5/325] 1 tab, Route: PO, Drug Form: TAB, Dosing Weight 70.455, kg, ONCE, STAT, Start date: 02/13/15 20:12:00, Stop date: 02/13/15 20:12:00Notes: (Same as: [place] 325/5) Do not exceed 4gm/day of acetaminophen. Inactive 02/14/2015 [facility] Allergies, Adverse Reactions, Alerts Substance Category Reaction Severity Reaction type Status Date Reported Comments Source codeine Assertion Drug allergy Active [facility] Immunizations Immunization Date Given Site Status Last Updated Comments Source pneumococcal 13-valent vaccine 2016 Not Given [facility] pneumococcal 13-valent vaccine 2016 Not Given [facility] Results Order Name Results Value Reference Range Date Interpretation Comments Source ELECTROLYTES AGAP 14.4 meq/L 10.0 - 20.0 02/28/2017 [facility] ELECTROLYTES eGFR 92 mL/min/1.73m2 02/28/2017 Result Comment: The eGFR is calculated using the [...] from the National Kidney Disease Education Program (NKDEP) which additionally recommends that when the eGFR is used in patients with extremes of body mass index for purposes of drug dosing, the eGFR should be multiplied by the estimated BMI. [facility] ELECTROLYTES CO2 26 meq/L 24 - 32 02/28/2017 [facility] ELECTROLYTES Calcium Lvl 8.6 mg/dL 8.5 - 10.5 02/28/2017 [facility] ELECTROLYTES Potassium Lvl 3.4 meq/L 3.5 - 5.1 02/28/2017 [facility] ELECTROLYTES Chloride Lvl 99 meq/L 95 - 109 02/28/2017 [facility] ELECTROLYTES BUN 12 mg/dL 7 - 22 02/28/2017 [facility] ELECTROLYTES Creatinine Lvl 0.54 mg/dL 0.50 - 1.40 02/28/2017 [facility] ELECTROLYTES Sodium Lvl 136 meq/L 135 - 145 02/28/2017 [facility] ELECTROLYTES Glucose Lvl 126 mg/dL 70 - 99 02/28/2017 [facility] HEMATOLOGY WBC 10.2 K/CMM 3.7 - 10.4 02/28/2017 [facility] HEMATOLOGY RBC 4.89 M/CMM 4.20 - 5.40 02/28/2017 [facility] HEMATOLOGY Hgb 13.8 g/dL 12.0 - 16.0 02/28/2017 [facility] HEMATOLOGY Hct 41.1 % 36.0 - 48.0 02/28/[address] [facility] MCH 28.2 pg 27.0 - 31.0 02/28/[address] [facility] MCV 83.9 fL 80.0 - 98.0 02/28/[address] [facility] MCHC 33.6 g/dL 32.0 - 36.0 02/28/[address] [facility] RDW 14.7 % 11.5 - 14.5 02/28/[address] [facility] Platelet 205 K/CMM 133 - 450 02/28/[address] [facility] MPV 7.0 fL 7.4 - 10.4 02/28/[address] [facility] Basophils # 0.1 K/CMM 0.0 - 0.2 02/28/2017 [facility] HEMATOLOGY Eosinophils 0.2 % 0.0 - 4.0 02/28/[address] [facility] Monocytes 6.4 % 2.0 - 12.0 02/28/[address] [facility] Basophils 0.5 % 0.0 - 1.0 02/28/[address] [facility] Segs-Bands # 8.6 K/CMM 1.5 - 8.1 02/28/[address] [facility] Lymphocytes # 0.9 K/CMM 1.0 - 5.5 02/28/[address] [facility] Monocytes # 0.7 K/CMM 0.0 - 0.8 02/28/[address] [facility] Lymphocytes 8.5 % 20.0 - 40.0 02/28/[address] [facility] Segs 84.4 % 45.0 - 75.0 02/28/2017 [facility] ELECTROLYTES AGAP 13.7 meq/L 10.0 - 20.0 02/26/2017 [facility] ELECTROLYTES eGFR 101 mL/min/1.73m2 02/26/2017 Result Comment: The eGFR is calculated using the [...] from the National Kidney Disease Education Program (NKDEP) which additionally recommends that when the eGFR is used in patients with extremes of body mass index for purposes of drug dosing, the eGFR should be multiplied by the estimated BMI. [facility] ELECTROLYTES CO2 26 meq/L 24 - 32 02/26/2017 [facility] ELECTROLYTES Calcium Lvl 8.7 mg/dL 8.5 - 10.5 02/26/2017 [facility] ELECTROLYTES Sodium Lvl 135 meq/L 135 - 145 02/26/2017 [facility] ELECTROLYTES Potassium Lvl 3.7 meq/L 3.5 - 5.1 02/26/2017 [facility] ELECTROLYTES Chloride Lvl 99 meq/L 95 - 109 02/26/2017 [facility] ELECTROLYTES Glucose Lvl 98 mg/dL 70 - 99 02/26/2017 [facility] ELECTROLYTES BUN 12 mg/dL 7 - 22 02/26/2017 [facility] ELECTROLYTES Creatinine Lvl 0.40 mg/dL 0.50 - 1.40 02/26/2017 [facility] HEMATOLOGY RBC 4.83 M/CMM 4.20 - 5.40 02/26/2017 [facility] HEMATOLOGY WBC 8.0 K/CMM 3.7 - 10.4 02/26/[address] [facility] Hgb 13.8 g/dL 12.0 - 16.0 02/26/[address] [facility] MCH 28.6 pg 27.0 - 31.0 02/26/2017 [facility] HEMATOLOGY Hct 40.0 % 36.0 - 48.0 02/26/[address] [facility] MCV 82.9 fL 80.0 - 98.0 02/26/2017 [facility] HEMATOLOGY Platelet 222 K/CMM 133 - 450 02/26/[address] [facility] RDW 14.3 % 11.5 - 14.5 02/26/[address] [facility] MPV 6.8 fL 7.4 - 10.4 02/26/[address] [facility] MCHC 34.5 g/dL 32.0 - 36.0 02/26/2017 [facility] HEMATOLOGY Basophils # 0.1 K/CMM 0.0 - 0.2 02/26/2017 [facility] HEMATOLOGY Monocytes # 0.7 K/CMM 0.0 - 0.8 02/26/2017 [facility] HEMATOLOGY Eosinophils 0.6 % 0.0 - 4.0 02/26/[address] [facility] Lymphocytes # 1.3 K/CMM 1.0 - 5.5 02/26/2017 [facility] HEMATOLOGY Segs-Bands # 5.9 K/CMM 1.5 - 8.1 02/26/2017 [facility] HEMATOLOGY Basophils 0.8 % 0.0 - 1.0 02/26/2017 [facility] HEMATOLOGY Monocytes 8.8 % 2.0 - 12.0 02/26/[address] [facility] Lymphocytes 15.8 % 20.0 - 40.0 02/26/[address] [facility] Segs 74.0 % 45.0 - 75.0 02/26/2017 [facility] Striated Muscle IgG Negative Neg:<1:40 02/25/2017 Result Comment: Performed At: [address] [id number] [place] Gregor Dawson MD Ph:[phone] [facility] ACHr Mod Ab null 0 - 20 02/25/2017 Result Comment: Negative: <21 Equivocal: 21 - 25 Positive: >25 The assay is linear between values of 12 and 64. Those <12 and >64 are reported as such. No single value for ACR-modulating antibody should be used as a sole basis for diagnosis or response to therapy. [facility] ACHr Binding Ab null 0.00 - 0.24 02/25/2017 Result Comment: Negative: 0.00 - 0.24 Borderline: 0.25 - 0.40 Positive: > 0.40 [facility] ACHr Block Ab 14 % 0 - 25 02/25/2017 Result Comment: Negative: 0 - 25 Borderline: 26 - 30 Positive: >30 Results for this test are for research purposes only by the assay's wind tunnel mechanic. The performance characteristics of this product have not been established. Results should not be used as a diagnostic procedure without confirmation of the diagnosis by another medically established diagnostic product or procedure. [facility] Spine lumbar wo contrast MRI Spine lumbar wo contrast MRI Patient Name: STEPHANIE PARDO. : 1940; Age: 76 years y/o; Female. MR: [id number]. Ordering Physician: Dorcas Meadows MD. MAGNETIC RESONANCE IMAGING LUMBAR SPINE WITHOUT CONTRAST: HISTORY: Spinal stenosis. COMPARISON: None. FINDINGS: Multiplanar multisequence magnetic resonance imaging of the lumbar spine was performed without intravenous gadolinium-based contrast. Lumbar vertebral bodies are normal in height, bone marrow signal and alignment without evidence of compression fracture or spondylolisthesis. Minimal multilevel marginal osteophyte formation noted, most prominent at T12-L1. Mild disc desiccation noted. Minimal to mild T12-L1 and L5-S1 disc space narrowing suspected. L1-L2 through L4-L5 disc heights are preserved. Conus medullaris is normal in signal and morphology ending at the T12-L1 level. Sagittal images of T11-T12 demonstrate no disc herniation, central canal or neural foraminal stenosis. T12-L1 demonstrates mild disc bulge mildly compressing the anterior thecal sac without clinically significant central canal stenosis. No neural foraminal stenosis. L1-L2 demonstrates no disc herniation, central canal or neural foraminal stenosis. L2-L3 demonstrates mild biforaminal disc bulge and mild bilateral facet hypertrophy causing bilateral minimal neural foraminal narrowing without exiting nerve root impingement, likely of no clinical significance. No disc herniation or central canal stenosis. L3-L4 demonstrates bilateral mild bilateral facet hypertrophy without disc herniation, central canal or clinically significant neural foraminal stenosis. L4-L5 demonstrates mild bilateral facet and left greater than right ligamentum flavum hypertrophy without disc herniation, central canal or clinically significant neural foraminal stenosis. L5-S1 demonstrates no disc herniation, central canal or neural foraminal stenosis. Paraspinal soft tissue is unremarkable. IMPRESSION: Mild degenerative changes of the lumbar spine without evidence of disc herniation, central canal or clinically significant neural foraminal stenosis. SL: [id number] 02/25/2017 - - Read by: Gianluca Suarez MD Dictated Date/time: 02/25/17 11:24 Electronically Signed by: Gianluca Suarez MD 02/25/17 11:36 FINAL REPORT [facility] Spine Thoracic wo contrast MRI Spine Thoracic wo contrast MRI Patient Name: STEPHANIE PARDO : 1940; Age: 76 years y/o Female MR: [id number] Study: Spine Thoracic wo contrast MRI 02/24/2017 3:12 PM CDT CLINICAL INDICATION: - spinal stenosis. COMPARISON: None TECHNIQUE: Multiplanar T1, T2, STIR weighted MRI of the thoracic spine without IV contrast. FINDINGS: ALIGNMENT AND GENERAL SURVEY: Moderate to severe thoracic kyphosis. Heterogeneous bone marrow signal. No acute fracture. Minimal grade 1 anterolisthesis of T2 on T3 and T3 on T4. SPINAL CORD: The thoracic spinal cord is normal in size and signal. The CSF space is unremarkable. The conus medullaris terminates at the T12-L1 level. DISC SPACES: Minimal disc bulges at T9-T10 and T12-T11. No significant spinal canal or foraminal stenosis. IMPRESSION: No acute thoracic spine abnormalities. No significant spinal canal stenosis within thoracic spine. Moderate to severe thoracic kyphosis. : [id number] 02/25/2017 - - Read by: Nanci Vazquez MD Dictated Date/time: 02/25/17 12:03 Electronically Signed by: Nanci Vazquez MD 02/25/17 12:08 FINAL REPORT [facility] Spine cervical wo contrast MRI Spine cervical wo contrast MRI Patient Name: STEPHANIE PARDO : 1940; Age: 76 years y/o Female MR: [id number] Study: Spine cervical wo contrast MRI 02/24/2017 11:01 AM CDT Ordering Physician: Dorcas Meadows MD Clinical Indication: Per nurse Pt's neck status has deteriorated since she arrived to the hospital. Pt has severe neck pain. Eligio - Spinal stenosis; Comparison: None TECHNIQUE: Multiplanar T1, T2, and STIR weighted MRI of the cervical spine is performed. FINDINGS: There is moderate dextroscoliosis. There is trace retrolisthesis at C3 and trace anterolisthesis at C6-C7 and T2-T3. The vertebral bodies are normal in height. Mild multilevel loss of disc height is present. The marrow signal is unremarkable. The craniocervical junction is unremarkable. The cervical cord is normal in signal and caliber. The paravertebral soft tissues are unremarkable. Changes by levels: C2-C3: There is no disc bulge or herniation. There is no stenosis. The facet joints are unremarkable.. C3-C4: Mild retrolisthesis and small disc bulge. There is no stenosis. The facet joints are unremarkable. C4-C5: There is no disc bulge or herniation. There is no stenosis. The facet joints are unremarkable. C5-C6: Small diffuse disc bulge. No stenosis. The facet joints are unremarkable. C6-C7: Small diffuse disc bulge. No stenosis. Mild facet arthrosis. C7-T1: Unremarkable. IMPRESSION: Mild multilevel degenerative changes. No stenosis. No acute findings. 02/24/2017 - - Read by: Vickie Ventura Dictated Date/time: 02/24/17 15:05 Electronically Signed by: Vickie Ventura 02/24/17 15:12 FINAL REPORT [facility] CHEM PANEL eGFR 96 mL/min/1.73m2 02/24/2017 Result Comment: The eGFR is calculated using the [...] from the National Kidney Disease Education Program (NKDEP) which additionally recommends that when the eGFR is used in patients with extremes of body mass index for purposes of drug dosing, the eGFR should be multiplied by the estimated BMI. [facility] CHEM PANEL Calcium Lvl 8.6 mg/dL 8.5 - 10.5 02/24/2017 [facility] CHEM PANEL Creatinine Lvl 0.46 mg/dL 0.50 - 1.40 02/24/2017 [facility] CHEM PANEL BUN 20 mg/dL 7 - 22 02/24/2017 [facility] CHEM PANEL Glucose Lvl 93 mg/dL 70 - 99 02/24/2017 [facility] CHEM PANEL CO2 25 meq/L 24 - 32 02/24/2017 [facility] CHEM PANEL Chloride Lvl 100 meq/L 95 - 109 02/24/2017 [facility] CHEM PANEL Potassium Lvl 3.6 meq/L 3.5 - 5.1 02/24/2017 [facility] CHEM PANEL Sodium Lvl 133 meq/L 135 - 145 02/24/2017 [facility] CHEM PANEL AGAP 11.6 meq/L 10.0 - 20.0 02/24/2017 [facility] HEMATOLOGY MPV 6.8 fL 7.4 - 10.4 02/24/2017 [facility] HEMATOLOGY RBC 4.87 M/CMM 4.20 - 5.40 02/24/2017 [facility] HEMATOLOGY WBC 8.1 K/CMM 3.7 - 10.4 02/24/2017 [facility] HEMATOLOGY Hgb 13.8 g/dL 12.0 - 16.0 02/24/[address] [facility] Hct 40.5 % 36.0 - 48.0 02/24/[address] [facility] MCHC 34.0 g/dL 32.0 - 36.0 02/24/2017 [facility]EMATOLOGY MCH 28.2 pg 27.0 - 31.0 02/24/2017 [facility] HEMATOLOGY Platelet 256 K/CMM 133 - 450 02/24/2017 [facility] HEMATOLOGY RDW 14.3 % 11.5 - 14.5 02/24/2017 [facility] HEMATOLOGY MCV 83.1 fL 80.0 - 98.0 02/24/2017 [facility] HEMATOLOGY Monocytes 9.4 % 2.0 - 12.0 02/24/2017 [facility] HEMATOLOGY Lymphocytes 17.0 % 20.0 - 40.0 02/24/2017 [facility] HEMATOLOGY Segs 72.7 % 45.0 - 75.0 02/24/2017 [facility] HEMATOLOGY Monocytes # 0.8 K/CMM 0.0 - 0.8 02/24/2017 [facility] HEMATOLOGY Eosinophils 0.2 % 0.0 - 4.0 02/24/2017 [facility] HEMATOLOGY Lymphocytes # 1.4 K/CMM 1.0 - 5.5 02/24/2017 [facility] HEMATOLOGY Segs-Bands # 5.9 K/CMM 1.5 - 8.1 02/24/2017 [facility] HEMATOLOGY Basophils 0.7 % 0.0 - 1.0 02/24/2017 [facility] HEMATOLOGY Basophils # 0.1 K/CMM 0.0 - 0.2 02/24/2017 [facility] LIPIDS VLDL 22 02/24/2017 [facility] LDL (Calculated) 99 mg/dL <=99 mg/dL 02/24/2017 [facility] HDL 38 mg/dL >=61 mg/dL 02/24/2017 [facility] Trig 110 mg/dL <=149 mg/dL 02/24/2017 [facility] Chol 159 mg/dL <=199 mg/dL 02/24/2017 [facility] CHD Risk 4.18 3.90 - 5.80 02/24/2017 [facility] Trig 100 mg/dL <=149 mg/dL 02/24/2017 [facility] HDL 39 mg/dL >=61 mg/dL 02/24/2017 [facility] Chol 170 mg/dL <=199 mg/dL 02/24/2017 [facility] VLDL 20 02/24/2017 [facility] LDL (Calculated) 111 mg/dL <=99 mg/dL 02/24/2017 [facility] CHD Risk 4.36 3.90 - 5.80 02/24/2017 [facility] SPECIAL CHEMISTRY Hgb A1C 5.3 % <=5.6 % 02/24/2017 [facility] Brain wo contrast MRI Brain wo contrast MRI Patient Name: STEPHANIE PARDO : 1940; Age: 76 years y/o Female MR: [id number] Study: Brain wo contrast MRI 02/23/2017 3:25 PM CDT Ordering Physician: Flex Locke MD Comparison: None Clinical Indication: - STROKE LIKE SYMPTOMS; Multiple axial diffusion-weighted, T2 FLAIR, T2 and gradient echo T2*weighted images were obtained. Coronal T2 FLAIR and sagittal T1-weighted images were obtained. No restricted diffusion. Age-appropriate cortical and cerebellar volume loss with compensatory enlargement of the ventricles and subarachnoid spaces is noted. Ectasia of the perivascular spaces at the basal ganglia bilaterally. Patchy chronic microangiopathic change at the ace and midbrain. Mastoid air cells and alert cavities are clear. Nasal septal deviation convex to the right. Paranasal sinuses are clear. The central flow voids appear intact. There is moderate to moderately severe focal and patchy chronic microangiopathic change of the deep white matter structures bilaterally. A 10 mm lacunar infarction is noted at the right periventricular white matter. Midline structures are unremarkable. There is no acute cortical infarction, mass lesion or hemorrhage noted. There is no mass effect or midline shift demonstrated. The ventricles are otherwise normal in size, shape and position. IMPRESSION: 1. No acute intracranial abnormality. 2. Senescent involutional and chronic ischemic changes are noted intracranially. SL: [id number] 02/23/2017 - - Read by: Chris Jose MD Dictated Date/time: 02/24/17 00:02 Electronically Signed by: Chris Jose MD 02/24/17 00:06 FINAL REPORT [facility] Carotid artery Doppler bilat US Carotid artery Doppler bilat US Carotid artery Doppler bilat US CLINICAL HISTORY: - STROKE LIKE SYMPTOMS. COMPARISON: CT head 02/23/2017 TECHNIQUE: Agrawal scale, color Doppler and spectral Doppler of the cervical carotid arteries was performed. Static images are submitted for review. FINDINGS: RIGHT: Mild calcific plaque is noted at the right carotid bulb. Visualized portion of right ECA is patent. Right ICA PSV 46 cm/sec. Right CCA PSV 53 cm/sec. Right ICA/CCA Ratio 0.9 LEFT: Mild plaque is noted at the left carotid bulb which extends into the proximal and mid left ICA. Visualized portion of left ECA is patent. Left ICA PSV 50 cm/sec. Left CCA PSV 115 cm/sec. Left ICA/CCA Ratio 0.4 Antegrade flow is noted in both vertebral arteries. IMPRESSION: No sonographic evidence for hemodynamically significant stenosis. CONSENSUS PANEL Doppler US criteria for diagnosis of ICA stenosis: Stenosis (%) ICA PSV (cm/sec) ICA EDV(cm/sec) ICA/CCA ratio <50 % <125 <40 <2.0 50-69 % 125-230 40-100 2.0-4.0 >70% but less than >230 >100 >4.0 near occlusion NOTE: Any reported ICA stenoses indirectly reference the distal internal carotid diameter as the denominator for stenosis measurement utilizing Consensus Panel Criteria. SL: RUSSELL 02/23/2017 - - Read by: Adolfo Moser MD Dictated Date/time: 02/23/17 18:02 Electronically Signed by: Adolfo Moser MD 02/23/17 18:05 FINAL REPORT [facility] CHEM PANEL Lactic Acid Lvl 1.2 mMol/L 0.5 - 2.2 02/23/2017 [facility] CARDIAC ENZYMES CK MB Index null 0.0 - 2.5 02/23/2017 [facility] CARDIAC ENZYMES Troponin-I null 0.00 - 0.40 02/23/2017 [facility] CARDIAC ENZYMES CK MB null 0.5 - 3.6 02/23/2017 [facility] CARDIAC ENZYMES Total CK 20 unit/L 12 - 191 02/23/2017 [facility] CHEM PANEL AST 34 unit/L 0 - 37 02/23/2017 [facility] CHEM PANEL Alk Phos 99 unit/L 39 - 136 02/23/2017 [facility] CHEM PANEL ALT 35 unit/L 0 - 65 02/23/2017 [facility] CHEM PANEL Total Protein 7.6 g/dL 6.4 - 8.4 02/23/2017 [facility] CHEM PANEL Albumin Lvl 3.3 g/dL 3.5 - 5.0 02/23/2017 [facility] CHEM PANEL Bili Total 0.5 mg/dL 0.2 - 1.3 02/23/2017 [facility] CHEM PANEL B/C Ratio 45 6 - 25 02/23/2017 [facility] CHEM PANEL Globulin 4.3 g/dL 2.7 - 4.2 02/23/2017 [facility] CHEM PANEL A/G Ratio 0.8 0.7 - 1.6 02/23/2017 [facility] HEMATOLOGY PTT 29.7 s 22.9 - 35.8 02/23/2017 [facility] HEMATOLOGY INR 1.04 0.85 - 1.17 02/23/2017 [facility] HEMATOLOGY PT 13.6 s 12.0 - 14.7 02/23/2017 [facility] URINE AND STOOL UA Urobilinogen <=1.0 mg/dL 0.1 - 1.0 02/23/2017 [facility] URINE AND STOOL UA Color Luciana 02/23/2017 [facility] URINE AND STOOL UA Mucus Many /LPF None Seen /LPF 02/23/2017 [facility] URINE AND STOOL UA [place] Yeast Occasional /HPF None Seen /HPF 02/23/2017 [facility] URINE AND STOOL UA Nitrite Negative (02/23/17 10:39 AM) Negative 02/23/2017 [facility] URINE AND STOOL UA Leuk Est Negative (02/23/17 10:39 AM) Negative 02/23/2017 [facility] URINE AND STOOL UA WBC 4 /HPF 0 - 5 02/23/2017 [facility] URINE AND STOOL UA Sq Epi Occasional /LPF Few /LPF 02/23/2017 [facility] URINE AND STOOL UA RBC 6 /HPF 0 - 2 02/23/2017 [facility] URINE AND STOOL UA Bacteria Moderate /HPF None Seen /HPF 02/23/2017 [facility] URINE AND STOOL UA Glucose Negative mg/dL Negative mg/dL 02/23/2017 [facility] URINE AND STOOL UA Ketones Negative mg/dL Negative mg/dL 02/23/2017 [facility] URINE AND STOOL UA Blood Negative (02/23/17 10:39 AM) Negative 02/23/2017 [facility] URINE AND STOOL UA Bili Negative *NA* (02/23/17 10:39 AM) Negative 02/23/2017 [facility] URINE AND STOOL UA Turbidity Marked *ABN* (02/23/17 10:39 AM) Clear 02/23/2017 [facility] URINE AND STOOL UA pH 5.0 5.0 - 8.0 02/23/2017 [facility] URINE AND STOOL UA Spec Grav 1.025 <=1.030 02/23/2017 [facility] URINE AND STOOL UA Protein Negative mg/dL Negative mg/dL 02/23/2017 [facility] Chest 1view DX Chest 1view DX Patient Name: STEPHANIE PARDO : 1940; Age: 76 years Female MR: [id number] Study: Chest 1view DX Order Time: 02/23/2017 10:34 AM CDT CLINICAL INDICATION: - Weakness and boady ache COMPARISON: Chest radiograph on 02/13/2015 FINDINGS: Lines: None. Lungs: The lungs are grossly clear. Hyperinflated lungs. Mediastinum: The cardiac silhouette is minimally enlarged. Midline trachea. Bones and soft tissues: No acute abnormalities. IMPRESSION: No acute cardiopulmonary abnormalities. No significant change since 02/13/2015. SL: [id number] 02/23/2017 - - Read by: Nanci Vazquez MD Dictated Date/time: 02/23/17 11:32 Electronically Signed by: Nanci Vazquez MD 02/23/17 11:33 FINAL REPORT [facility] Brain wo contrast CT Brain wo contrast CT Patient Name: STEPHANIE PARDO : 1940; Age: 76 years y/o Female MR: [id number] Study: Brain wo contrast CT 02/23/2017 10:34 AM CDT Clinical Indication: dlp 1023.91 - weakness L sided; Comparison: 08/11/2016 TECHNIQUE: CT images were obtained from the foramen magnum to the vertex without the use of intravenous contrast on a multidetector CT. Coronal and sagittal reconstructions were obtained. FINDINGS: BRAIN PARENCHYMA: Left vertebral and bilateral carotid artery calcification. There is question of patchy low density in the right ace that could represent infarct age uncertain. MRI brain would be helpful for further evaluation. Old infarction is seen in the right [place]il[place] radiata. Small old infarct left occipital white matter. Patchy low density in the subinsular cortex bilaterally, frontal and occipital white matter bilaterally, gil[place] radiata bilaterally and centrum semiovale bilaterally consistent with small vessel changes. No evidence for subarachnoid, intraparenchymal or intraventricular hemorrhage. No significant extra-axial fluid collection, mass effect or shift. VENTRICLES: The ventricles and sulci are enlarged for the patient's age but not out of proportion to each other. Findings are consistent with changes of cerebral atrophy. ORBITS, MASTOIDS AND PARANASAL SINUSES: The visualized orbits and paranasal sinuses are unremarkable. The mastoid air cells are clear. SKULL: There are no osseous abnormalities. If there is further concern for intracranial pathology or acute stroke, MRI of the brain may be performed for complete assessment. IMPRESSION: 1. Intracranial vascular calcification as above. 2. Question patchy low density right ace that could represent infarct age uncertain. MRI brain recommended for further evaluation. 3. 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 4. Small vessel changes. 5. Cerebral atrophy. SL: [id number] 02/23/2017 - - Read by: Juancarlos Goins MD Dictated Date/time: 02/23/17 11:33 Electronically Signed by: Juancarlos Goins MD 02/23/17 11:38 FINAL REPORT [facility] ELECTROLYTES AGAP 15.6 meq/L 10.0 - 20.0 08/15/2016 [facility] ELECTROLYTES eGFR 90 mL/min/1.73m2 08/15/2016 Result Comment: The eGFR is calculated using the [...] from the National Kidney Disease Education Program (NKDEP) which additionally recommends that when the eGFR is used in patients with extremes of body mass index for purposes of drug dosing, the eGFR should be multiplied by the estimated BMI. [facility] ELECTROLYTES Potassium Lvl 3.6 meq/L 3.5 - 5.1 08/15/2016 [facility] ELECTROLYTES Chloride Lvl 102 meq/L 95 - 109 08/15/2016 [facility] ELECTROLYTES CO2 24 meq/L 24 - 32 08/15/2016 [facility] ELECTROLYTES Calcium Lvl 8.5 mg/dL 8.5 - 10.5 08/15/2016 [facility] ELECTROLYTES Glucose Lvl 106 mg/dL 70 - 99 08/15/2016 [facility] ELECTROLYTES BUN 11 mg/dL 7 - 22 08/15/2016 [facility] ELECTROLYTES Creatinine Lvl 0.57 mg/dL 0.50 - 1.40 08/15/2016 [facility] ELECTROLYTES Sodium Lvl 138 meq/L 135 - 145 08/15/2016 [facility] HEMATOLOGY MCH 30.1 pg 27.0 - 31.0 08/15/2016 [facility] HEMATOLOGY MCV 88.2 fL 80.0 - 98.0 08/15/2016 [facility] HEMATOLOGY Platelet 272 K/CMM 133 - 450 08/15/2016 [facility] HEMATOLOGY RDW 13.8 % 11.5 - 14.5 08/15/[address] [facility] MPV 7.2 fL 7.4 - 10.4 08/15/[address] [facility] MCHC 34.1 g/dL 32.0 - 36.0 08/15/[address] [facility] Hgb 13.5 g/dL 12.0 - 16.0 08/15/2016 [facility] HEMATOLOGY RBC 4.50 M/CMM 4.20 - 5.40 08/15/2016 [facility] HEMATOLOGY Hct 39.6 % 36.0 - 48.0 08/15/[address] [facility] WBC 7.4 K/CMM 3.7 - 10.4 08/15/2016 [facility] HEMATOLOGY Monocytes # 0.8 K/CMM 0.0 - 0.8 08/15/2016 [facility] HEMATOLOGY Lymphocytes # 1.1 K/CMM 1.0 - 5.5 08/15/2016 [facility] HEMATOLOGY Monocytes 10.2 % 2.0 - 12.0 08/15/2016 [facility] HEMATOLOGY Lymphocytes 14.9 % 20.0 - 40.0 08/15/2016 [facility] HEMATOLOGY Segs 73.2 % 45.0 - 75.0 08/15/2016 [facility] HEMATOLOGY Eosinophils # 0.1 K/CMM 0.0 - 0.5 08/15/2016 [facility] HEMATOLOGY Segs-Bands # 5.4 K/CMM 1.5 - 8.1 08/15/2016 [facility] HEMATOLOGY Eosinophils 1.1 % 0.0 - 4.0 08/15/2016 [facility] HEMATOLOGY Basophils 0.6 % 0.0 - 1.0 08/15/2016 [facility] ELECTROLYTES AGAP 14.2 meq/L 10.0 - 20.0 08/14/2016 [facility] ELECTROLYTES eGFR 91 mL/min/1.73m2 08/14/2016 Result Comment: The eGFR is calculated using the [...] from the National Kidney Disease Education Program (NKDEP) which additionally recommends that when the eGFR is used in patients with extremes of body mass index for purposes of drug dosing, the eGFR should be multiplied by the estimated BMI. [facility] ELECTROLYTES Calcium Lvl 8.4 mg/dL 8.5 - 10.5 08/14/2016 [facility] ELECTROLYTES CO2 24 meq/L 24 - 32 08/14/2016 [facility] ELECTROLYTES Potassium Lvl 3.2 meq/L 3.5 - 5.1 08/14/2016 [facility] ELECTROLYTES Chloride Lvl 101 meq/L 95 - 109 08/14/2016 [facility] ELECTROLYTES Glucose Lvl 105 mg/dL 70 - 99 08/14/2016 [facility] ELECTROLYTES Creatinine Lvl 0.54 mg/dL 0.50 - 1.40 08/14/2016 [facility] ELECTROLYTES Sodium Lvl 136 meq/L 135 - 145 08/14/2016 [facility] ELECTROLYTES BUN 12 mg/dL 7 - 22 08/14/2016 [facility] HEMATOLOGY Lymphocytes 16.3 % 20.0 - 40.0 08/14/2016 [facility] HEMATOLOGY Segs 71.5 % 45.0 - 75.0 08/14/2016 [facility] HEMATOLOGY Segs-Bands # 5.5 K/CMM 1.5 - 8.1 08/14/2016 [facility] HEMATOLOGY Eosinophils # 0.1 K/CMM 0.0 - 0.5 08/14/2016 [facility] HEMATOLOGY Lymphocytes # 1.3 K/CMM 1.0 - 5.5 08/14/2016 [facility] HEMATOLOGY Monocytes # 0.8 K/CMM 0.0 - 0.8 08/14/[address] [facility] Basophils 0.6 % 0.0 - 1.0 08/14/[address] [facility] Eosinophils 1.2 % 0.0 - 4.0 08/14/[address] [facility] Monocytes 10.4 % 2.0 - 12.0 08/14/[address] [facility] MCHC 34.2 g/dL 32.0 - 36.0 08/14/[address] [facility] MCH 30.4 pg 27.0 - 31.0 08/14/[address] [facility] MCV 88.7 fL 80.0 - 98.0 08/14/[address] [facility] Hct 38.6 % 36.0 - 48.0 08/14/[address] [facility] Hgb 13.2 g/dL 12.0 - 16.0 08/14/[address] [facility] RDW 13.6 % 11.5 - 14.5 08/14/[address] [facility] MPV 7.5 fL 7.4 - 10.4 08/14/[address] [facility] Platelet 230 K/CMM 133 - 450 08/14/[address] [facility] RBC 4.36 M/CMM 4.20 - 5.40 08/14/[address] [facility] WBC 7.7 K/CMM 3.7 - 10.4 08/14/2016 [facility] URINE AND STOOL Fecal Leukocyte None Seen (08/14/16 6:03 AM) 08/14/2016 [facility] CHEM PANEL Lactic Acid Lvl 1.3 mMol/L 0.5 - 2.2 08/12/2016 [facility] CHEM PANEL Phosphorus 3.2 mg/dL 2.5 - 4.5 08/12/2016 [facility] CHEM PANEL Magnesium Lvl 1.9 mg/dL 1.8 - 2.4 08/12/2016 [facility] CHEM PANEL eGFR 87 mL/min/1.73m2 08/12/2016 Result Comment: The eGFR is calculated using the [...] from the National Kidney Disease Education Program (NKDEP) which additionally recommends that when the eGFR is used in patients with extremes of body mass index for purposes of drug dosing, the eGFR should be multiplied by the estimated BMI. [facility] CHEM PANEL Calcium Lvl 8.9 mg/dL 8.5 - 10.5 08/12/2016 [facility] CHEM PANEL Chloride Lvl 101 meq/L 95 - 109 08/12/2016 [facility] CHEM PANEL CO2 19 meq/L 24 - 32 08/12/2016 [facility] CHEM PANEL Creatinine Lvl 0.63 mg/dL 0.50 - 1.40 08/12/2016 [facility] CHEM PANEL Glucose Lvl 102 mg/dL 70 - 99 08/12/2016 [facility] CHEM PANEL BUN 8 mg/dL 7 - 22 08/12/2016 [facility] CHEM PANEL Sodium Lvl 134 meq/L 135 - 145 08/12/2016 [facility] CHEM PANEL Potassium Lvl 3.5 meq/L 3.5 - 5.1 08/12/2016 [facility] CHEM PANEL AGAP 17.5 meq/L 10.0 - 20.0 08/12/[address] [facility] PTT 40.1 s 22.9 - 35.8 08/12/2016 [facility] HEMATOLOGY INR 1.17 0.85 - 1.17 08/12/[address] [facility] PT 15.1 s 12.0 - 14.7 08/12/[address] [facility] Platelet 242 K/CMM 133 - 450 08/12/[address] [facility] MPV 7.1 fL 7.4 - 10.4 08/12/[address] [facility] MCHC 34.2 g/dL 32.0 - 36.0 08/12/[address] [facility] MCH 30.5 pg 27.0 - 31.0 08/12/[address] [facility] RDW 13.7 % 11.5 - 14.5 08/12/[address] [facility] MCV 89.1 fL 80.0 - 98.0 08/12/[address] [facility] RBC 4.48 M/CMM 4.20 - 5.40 08/12/[address] [facility] Hgb 13.7 g/dL 12.0 - 16.0 08/12/[address] [facility] Hct 39.9 % 36.0 - 48.0 08/12/[address] [facility] WBC 10.4 K/CMM 3.7 - 10.4 08/12/[address] [facility] Basophils # 0.1 K/CMM 0.0 - 0.2 08/12/[address] [facility] Monocytes # 0.9 K/CMM 0.0 - 0.8 08/12/[address] [facility] Lymphocytes # 1.9 K/CMM 1.0 - 5.5 08/12/[address] [facility] Monocytes 8.7 % 2.0 - 12.0 08/12/[address] [facility] Segs-Bands # 7.5 K/CMM 1.5 - 8.1 08/12/[address] [facility] Lymphocytes 18.0 % 20.0 - 40.0 08/12/[address] [facility] Eosinophils 0.1 % 0.0 - 4.0 08/12/[address] [facility] Basophils 0.5 % 0.0 - 1.0 08/12/[address] [facility] Segs 72.7 % 45.0 - 75.0 08/12/2016 [facility] Brain wo contrast CT Brain wo contrast CT Addendum: I have reviewed this examination and concur with the interpretation. Brain wo contrast CT Age: 76 years /o Female Clinical Indication: Dysarthria - Comparison: 07/14/2016 TECHNIQUE: CT images were obtained from the foramen magnum to the vertex without the use of intravenous contrast on a multidetector CT. Coronal and sagittal reconstructions were obtained. CT radiation dose DLP: 982 mGy-cm FINDINGS: BRAIN PARENCHYMA: There is moderately severe generalized brain parenchymal atrophy related to the patient's age. Moderately severe nonspecific periventricular white matter disease changes are noted. An old white matter infarct is present lateral to the mid body of the right lateral ventricle and the posterior frontal region. This is unchanged from previous exam. There are no focal mass lesions on this noncontrast head CT. There is no mass effect, midline shift or edema. There are no intra-axial or extra-axial fluid collections, intraventricular or intraparenchymal hemorrhage. There is no noncontrast CT evidence of a subacute stroke. The pineal, sellar, brainstem, cerebellum and skull base regions appear unremarkable. VENTRICLES: The lateral ventricles, third and fourth ventricles appear unremarkable. The basilar cisterns are normal. ORBITS, MASTOIDS AND PARANASAL SINUSES: The visualized orbits and paranasal sinuses are unremarkable. The mastoid air cells are clear. SKULL: There are no calvarial abnormalities seen. IMPRESSION: 1. Chronic age-related atrophy and small vessel ischemic changes without mass, hemorrhage or subacute stroke. 2. 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 3. Other scattered small infarcts in the basal ganglia and subcortical white matter consistent with small vessel ischemic disease which is not significantly changed from previous exam. SL: [id number] 08/11/2016 - - Read by: Adolfo Moser MD Dictated Date/time: 08/11/16 22:17 Electronically Signed by: Adolfo Moser MD 08/11/16 22:18 FINAL REPORT - - Read by: Lincoln Barnes MD Dictated Date/time: 08/11/16 22:08 Electronically Signed by: Lincoln Barnes MD 08/11/16 22:11 FINAL REPORT [facility] HEMATOLOGY Basophils # 0.1 K/CMM 0.0 - 0.2 08/11/2016 [facility] URINE AND STOOL UA Leuk Est Small *ABN* (08/10/16 5:36 PM) Negative 08/10/2016 [facility] URINE AND STOOL UA Sq Epi Few /LPF Few /LPF 08/10/2016 [facility] URINE AND STOOL UA WBC 4 /HPF 0 - 5 08/10/2016 [facility] URINE AND STOOL UA Color Ltyellow 08/10/2016 [facility] URINE AND STOOL UA Urobilinogen <=1.0 mg/dL 0.1 - 1.0 08/10/2016 [facility] URINE AND STOOL UA Bacteria Occasional /HPF None Seen /HPF 08/10/2016 [facility] URINE AND STOOL UA RBC 1 /HPF 0 - 2 08/10/2016 [facility] URINE AND STOOL UA Hyal Cast 1 /LPF 0 - 2 08/10/2016 [facility] URINE AND STOOL UA Nitrite Negative (08/10/16 5:36 PM) Negative 08/10/2016 [facility] URINE AND STOOL UA Bili Negative *NA* (08/10/16 5:36 PM) Negative 08/10/2016 [facility] URINE AND STOOL UA Ketones Trace mg/dL Negative mg/dL 08/10/2016 [facility] URINE AND STOOL UA Blood Small *ABN* (08/10/16 5:36 PM) Negative 08/10/2016 [facility] URINE AND STOOL UA pH 7.0 5.0 - 8.0 08/10/2016 [facility] URINE AND STOOL UA Glucose Negative mg/dL Negative mg/dL 08/10/2016 [facility] URINE AND STOOL UA Protein Negative mg/dL Negative mg/dL 08/10/2016 [facility] URINE AND STOOL UA Spec Grav 1.005 <=1.030 08/10/2016 [facility] URINE AND STOOL UA Turbidity Clear (08/10/16 5:36 PM) Clear 08/10/2016 [facility] HEMATOLOGY Basophils # 0.1 K/CMM 0.0 - 0.2 08/10/2016 [facility] Abdomen/Pelvis w IV contrast CT Abdomen/Pelvis w IV contrast CT Clinical Indication: Here with c/o diarrhea that started on Tuesday. Also c/o weakness and cramping /evaluate for colitis, diarrhea x 3 days - [address] dose DLP 1792.46 mGy-cm Comparison: CT of the abdomen and pelvis performed 07/30/2012 TECHNIQUE: Helical imaging was performed after injection of IV contrast, from the diaphragm through the symphysis with multiplanar reformations obtained. IV CONTRAST: 100 mL of Omnipaque GI CONTRAST: No oral contrast was administered. DLP: 1792.46 mGy-cm FINDINGS: LOWER CHEST: There is dependent atelectasis versus scarring at the lung bases. Mild emphysematous changes are seen within the visualized lungs. LIVER: The liver parenchyma is normal in appearance without masses. The portal vein is normal in caliber. BILIARY TREE: There is mild intrahepatic and extrahepatic biliary ductal dilatation, which is most likely due to postcholecystectomy state. GALLBLADDER: The gallbladder is surgically absent, surgical clips are seen within the gallbladder fossa. PANCREAS: The pancreas is unremarkable. The pancreatic duct is normal in caliber. SPLEEN: The spleen is normal in size and there are no parenchymal abnormalities. ADRENALS: There is nonspecific bilateral adrenal gland thickening, which is unchanged since the prior study. KIDNEYS: The kidneys demonstrates normal contrast enhancement. There is a subcentimeter too small to characterize hypodensity within the mid to upper pole the left kidney, which may represent a small cyst. There is no evidence of renal or ureteral calculi. There is no evidence of hydronephrosis. BOWEL: There is a 2.4 cm duodenal diverticulum. There is mild to moderate bowel wall thickening of the proximal transverse colon and proximal descending colon. There is colonic diverticulosis without evidence of diverticulitis. There is no evidence of bowel obstruction. APPENDIX: The appendix is within normal limits. PELVIS: There is mild urinary bladder wall thickening. No evidence of pelvic mass is seen. PERITONEUM: There is no evidence for free intraperitoneal fluid or air. SOFT TISSUES: The soft tissues are unremarkable. There is no evidence of masses or hernias. LYMPH NODES: There are small periaortic and mesenteric lymph nodes, which are most likely reactive in etiology. VASCULATURE: There are prostatic calcifications of the nonaneurysmal abdominal aorta and branching vessels. MUSCULOSKELETAL: There are degenerative changes within the visualized spine. IMPRESSION: 1. Mild to moderate bowel wall thickening of the proximal transverse colon and proximal descending colon. Findings may represent infectious or inflammatory colitis. Ischemic colitis is less likely in the differential. 2. Colonic diverticulosis without evidence of diverticulitis. 3. Appendix within normal limits. 4. Mild urinary bladder wall thickening, which may be due to cystitis. Correlation with urinalysis requested. SL: [id number] - - Read by: Erick Wolfe MD Dictated Date/time: 08/09/16 02:26 Electronically Signed by: Erick Wolfe MD 08/09/16 02:41 FINAL REPORT [facility] CARDIAC ENZYMES CK MB Index null 0.0 - 2.5 08/08/2016 [facility] CARDIAC ENZYMES Troponin-I null 0.00 - 0.40 08/08/2016 [facility] CARDIAC ENZYMES CK MB null 0.5 - 3.6 08/08/2016 [facility] CARDIAC ENZYMES Total CK 45 unit/L 12 - 191 08/08/2016 [facility] CHEM PANEL A/G Ratio 1.0 0.7 - 1.6 08/08/2016 [facility] CHEM PANEL Globulin 3.8 g/dL 2.7 - 4.2 08/08/2016 [facility] CHEM PANEL B/C Ratio 9 6 - 25 08/08/2016 [facility] CHEM PANEL Total Protein 7.5 g/dL 6.4 - 8.4 08/08/2016 [facility] CHEM PANEL Albumin Lvl 3.7 g/dL 3.5 - 5.0 08/08/2016 [facility] CHEM PANEL Bili Total 0.5 mg/dL 0.2 - 1.3 08/08/2016 [facility] CHEM PANEL Alk Phos 65 unit/L 39 - 136 08/08/2016 [facility] CHEM PANEL AST 19 unit/L 0 - 37 08/08/2016 [facility] CHEM PANEL ALT 9 unit/L 0 - 65 08/08/2016 [facility] CHEM PANEL Lipase Lvl 92 unit/L 73 - 393 08/08/2016 [facility] CHEM PANEL Magnesium Lvl 1.5 mg/dL 1.8 - 2.4 08/08/2016 [facility] CHEM PANEL Phosphorus 2.3 mg/dL 2.5 - 4.5 08/08/2016 [facility] Abdomen AP DX Abdomen AP DX Clinical Indication: abd pain - evaluate for Diarrhea x 3 days, Comparison: Pelvis radiograph performed on 02/13/2015 FINDINGS: The AP supine view of the abdomen shows a nonspecific bowel gas pattern. There is no abnormal dilatation of bowel loops. There is no pneumatosis or mass effect. There are no radiopaque densities noted. There are degenerative changes within the visualized spine. IMPRESSION: Nonspecific bowel gas pattern within the visualized abdomen. If there is further concern for acute abdominal pathology, further evaluation with CT of the abdomen and pelvis with contrast can be performed. PETER: KPATEL-M 08/08/2016 - - Read by: Erick Wolfe MD Dictated Date/time: 08/08/16 23:18 Electronically Signed by: Erick Wolfe MD 08/08/16 23:20 FINAL REPORT [facility] Spine cervical 2 or 3 view DX Spine cervical 2 or 3 view DX Cervical spine 3 views: There is limited evaluation of C7 in the lateral projections due to overlying shoulder structures. There is otherwise no fracture or dislocation. The prevertebral soft tissues are within normal limits. [id number] 07/14/2016 - - Read by: Rick Adhikari MD Dictated Date/time: 07/14/16 15:14 Electronically Signed by: Rick Adhikari MD 07/14/16 15:15 FINAL REPORT [facility] Knee series 3 views DX Knee series 3 views DX Left knee 3 views: There is a transverse fracture through the patella with slight distraction of the fragments. There is no other fracture or dislocation. There are no significant soft tissue abnormalities. [id number] 07/14/2016 - - Read by: Rick Adhikari MD Dictated Date/time: 07/14/16 15:15 Electronically Signed by: Rick Adhikari MD 07/14/16 15:16 FINAL REPORT [facility] Facial bone wo contrast CT Facial bone wo contrast CT CT FACIAL BONES: HISTORY: Fall from standing 2 days ago with facial bruising. TECHNIQUE: Multislice axial acquisitions were done without contrast. Sagittal and coronal reformatted images were done. FINDINGS: There is no evidence of fractures. The right maxillary sinus is hypoplastic. The sinuses are clear. The orbital soft tissues appear intact. IMPRESSION: No traumatic CT abnormalities of the facial bones. [id number] 07/14/2016 - - Read by: Rick Adhikari MD Dictated Date/time: 07/14/16 15:20 Electronically Signed by: Rick Adhikari MD 07/14/16 15:22 FINAL REPORT [facility] Spine cervical wo contrast CT Spine cervical wo contrast CT Patient Name: STEPHANIE PARDO : 1940; Age: 75 years Female MR: [id number] Study: Spine cervical wo contrast CT 07/14/2016 2:16 PM CDT CLINICAL INDICATION: Pain, Trauma; fall x 2 days ago from tripping, c/o left face, left knee pain. Bruising noted to left face. swelling to left knee. AAOx4 from home. Hx HTN; s/p fall - dlp: 652.06 . ADDITIONAL HISTORY: None COMPARISON: None TECHNIQUE: Multidetector CT imaging of the cervical spine is performed. Coronal and sagittal reconstructions were obtained. DLP: 652.06 mGy-cm FINDINGS: ALIGNMENT AND GENERAL ASSESSMENT: Normal alignment of the cervical spine. No displaced fracture. Mild grade 1 anterolisthesis of C3 on C4 and C5 on C6. The craniocervical junction is normal. The atlanto-dental alignment appears normal. The posterior elements and spinous processes are intact. The facet joint, spinolaminar and spinous process alignment are intact. DISC SPACES AND SOFT TISSUES: The prevertebral soft tissues are normal. Mild disc space narrowing associated with small posterior osteophytes at C3-C4, C5-C6, and C6-C7. No evidence of significant canal stenosis. Emphysematous changes within the lung apices. MRI is the gold standard to assess for disc disease. CT myelogram or MRI of the cervical spine may be performed, if there is further concern. IMPRESSION: No acute cervical spine abnormalities. SL: [id number] 07/14/2016 - - Read by: Nanci Vazquez MD Dictated Date/time: 07/14/16 15:18 Electronically Signed by: Nanci Vazquez MD 07/14/16 15:22 FINAL REPORT [facility] Brain wo contrast CT Brain wo contrast CT Patient Name: STEPHANIE PARDO : 1940; Age: 75 years y/o Female MR: [id number] Study: Brain wo contrast CT 07/14/2016 1:16 PM CDT Clinical Indication: Headache with Trauma; fall x 2 days ago from tripping, c/o left face, left knee pain. Bruising noted to left face. swelling to left knee. AAOx4 from home. Hx HTN; trauma - dlp: 981.84; Comparison: 02/13/2015 TECHNIQUE: CT images were obtained from the foramen magnum to the vertex without the use of intravenous contrast on a multidetector CT. Coronal and sagittal reconstructions were obtained. FINDINGS: BRAIN PARENCHYMA: Small old infarct right gilmore radiata. Patchy low density in the external capsule bilaterally, right basal ganglia, frontal and occipital white matter bilaterally, gilmore radiata bilaterally and centrum semiovale bilaterally consistent with small vessel changes. Left vertebral and bilateral carotid artery calcification. No evidence for subarachnoid, intraparenchymal or intraventricular hemorrhage. No significant extra-axial fluid collection, mass effect or shift. No evidence for an acute infarction. VENTRICLES: Ventricles and sulci are within normal limits for the patient's age. ORBITS, MASTOIDS AND PARANASAL SINUSES: The visualized orbits and paranasal sinuses are unremarkable. The mastoid air cells are clear. SKULL: There are no osseous abnormalities. If there is further concern for intracranial pathology or acute stroke, MRI of the brain may be performed for complete assessment. IMPRESSION: 1. Small old infarct right gilmore radiata. 2. Small vessel changes. 3. Intracranial vascular calcification as above. SL: [id number] 07/14/2016 - - Read by: Juancarlos Goins MD Dictated Date/time: 07/14/16 15:50 Electronically Signed by: Juancarlos Goins MD 07/14/16 15:55 FINAL REPORT [facility] URINE AND STOOL UA Blood Small *ABN* (04/02/15 8:04 PM) Negative 04/03/2015 [facility] URINE AND STOOL UA Bili Negative *NA* (04/02/15 8:04 PM) Negative 04/03/2015 [facility] URINE AND STOOL UA Leuk Est Moderate *ABN* (04/02/15 8:04 PM) Negative 04/03/2015 [facility] URINE AND STOOL UA Nitrite Negative (04/02/15 8:04 PM) Negative 04/03/2015 [facility] URINE AND STOOL UA Ketones Negative mg/dL Negative mg/dL 04/03/2015 [facility] URINE AND STOOL UA RBC 2 /HPF 0 - 2 04/03/2015 [facility] URINE AND STOOL UA WBC 4 /HPF 0 - 5 04/03/2015 [facility] URINE AND STOOL UA Sq Epi Occasional /LPF Few /LPF 04/03/2015 [facility] URINE AND STOOL UA Color Ltyellow 04/03/2015 [facility] URINE AND STOOL UA Urobilinogen <=1.0 mg/dL 0.1 - 1.0 04/03/2015 [facility] URINE AND STOOL UA Bacteria Occasional /HPF None Seen /HPF 04/03/2015 [facility] URINE AND STOOL UA Protein Negative mg/dL Negative mg/dL 04/03/2015 [facility] URINE AND STOOL UA pH 5.0 5.0 - 8.0 04/03/2015 [facility] URINE AND STOOL UA Turbidity Slight *ABN* (04/02/15 8:04 PM) Clear 04/03/2015 [facility] URINE AND STOOL UA Glucose Negative mg/dL Negative mg/dL 04/03/2015 [facility] URINE AND STOOL UA Spec Grav 1.006 <=1.030 04/03/2015 [facility] CHEM PANEL Lipase Lvl 115 unit/L 73 - 393 04/02/2015 [facility] CHEM PANEL BUN 8 mg/dL 7 - 22 04/02/2015 [facility] CHEM PANEL Creatinine Lvl 0.75 mg/dL 0.50 - 1.40 04/02/2015 [facility] CHEM PANEL Glucose Lvl 103 mg/dL 70 - 99 04/02/2015 [facility] CHEM PANEL Calcium Lvl 9.4 mg/dL 8.5 - 10.5 04/02/2015 [facility] CHEM PANEL ALT 19 unit/L 0 - 65 04/02/2015 [facility] CHEM PANEL AST 16 unit/L 0 - 37 04/02/2015 [facility] CHEM PANEL Alk Phos 78 unit/L 39 - 136 04/02/2015 [facility] CHEM PANEL Bili Total 0.3 mg/dL 0.2 - 1.3 04/02/2015 [facility] CHEM PANEL eGFR 78 mL/min/1.73m2 04/02/2015 Result Comment: The eGFR is calculated using the [...] from the National Kidney Disease Education Program (NKDEP) which additionally recommends that when the eGFR is used in patients with extremes of body mass index for purposes of drug dosing, the eGFR should be multiplied by the estimated BMI. [facility] CHEM PANEL Potassium Lvl 3.3 meq/L 3.5 - 5.1 04/02/2015 [facility] CHEM PANEL Chloride Lvl 95 meq/L 95 - 109 04/02/2015 [facility] CHEM PANEL CO2 26 meq/L 24 - 32 04/02/2015 [facility] CHEM PANEL Total Protein 8.0 g/dL 6.4 - 8.4 04/02/2015 [facility] CHEM PANEL Albumin Lvl 3.9 g/dL 3.5 - 5.0 04/02/2015 [facility] CHEM PANEL Sodium Lvl 131 meq/L 135 - 145 04/02/2015 [facility] CHEM PANEL AGAP 13.3 meq/L 10.0 - 20.0 04/02/2015 [facility] CHEM PANEL B/C Ratio 11 6 - 25 04/02/2015 [facility] CHEM PANEL Globulin 4.1 g/dL 2.0 - 4.0 04/02/2015 [facility] CHEM PANEL A/G Ratio 1.0 0.7 - 1.6 04/02/2015 [facility] HEMATOLOGY WBC 9.0 K/CMM 3.7 - 10.4 04/02/2015 [facility] HEMATOLOGY RDW 13.9 % 11.5 - 14.5 04/02/2015 [facility] HEMATOLOGY MCV 88.1 fL 80.0 - 98.0 04/02/2015 [facility] HEMATOLOGY Hct 39.7 % 36.0 - 48.0 04/02/[address] [facility] MCHC 33.3 g/dL 32.0 - 36.0 04/02/[address] [facility] MCH 29.3 pg 27.0 - 31.0 04/02/[address] [facility] MPV 6.6 fL 7.4 - 10.4 04/02/[address] [facility] RBC 4.51 M/CMM 4.20 - 5.40 04/02/[address] [facility] Hgb 13.2 g/dL 12.0 - 16.0 04/02/[address] [facility] Platelet 301 K/CMM 133 - 450 04/02/[address] [facility] INR 1.01 0.85 - 1.17 04/02/[address] [facility] PT 13.6 s 12.0 - 14.7 04/02/[address] [facility] PTT 32.1 s 22.9 - 35.8 04/02/[address] [facility] Monocytes # 0.7 K/CMM 0.0 - 0.8 04/02/2015 [facility] HEMATOLOGY Basophils # 0.1 K/CMM 0.0 - 0.2 04/02/2015 [facility] HEMATOLOGY Segs 71.0 % 45.0 - 75.0 04/02/[address] [facility] Monocytes 7.7 % 2.0 - 12.0 04/02/[address] [facility] Lymphocytes 20.4 % 20.0 - 40.0 04/02/2015 [facility] HEMATOLOGY Eosinophils 0.3 % 0.0 - 4.0 04/02/2015 [facility] HEMATOLOGY Segs-Bands # 6.4 K/CMM 1.5 - 8.1 04/02/[address] [facility] Basophils 0.6 % 0.0 - 1.0 04/02/[address] [facility] Lymphocytes # 1.8 K/CMM 1.0 - 5.5 04/02/2015 [facility] CHEM PANEL eGFR 72 mL/min/1.73m2 02/16/2015 Result Comment: The eGFR is calculated using the [...] from the National Kidney Disease Education Program (NKDEP) which additionally recommends that when the eGFR is used in patients with extremes of body mass index for purposes of drug dosing, the eGFR should be multiplied by the estimated BMI. [facility] CHEM PANEL BUN 6 mg/dL 7 - 22 02/16/2015 [facility] CHEM PANEL Creatinine Lvl 0.8 mg/dL 0.5 - 1.4 02/16/2015 [facility] CHEM PANEL CO2 27 meq/L 24 - 32 02/16/2015 [facility] CHEM PANEL Calcium Lvl 8.8 mg/dL 8.5 - 10.5 02/16/2015 [facility] CHEM PANEL Glucose Lvl 104 mg/dL 70 - 99 02/16/2015 [facility] CHEM PANEL Sodium Lvl 137 meq/L 135 - 145 02/16/2015 [facility] CHEM PANEL Chloride Lvl 102 meq/L 95 - 109 02/16/2015 [facility] CHEM PANEL Potassium Lvl 3.7 meq/L 3.5 - 5.1 02/16/2015 [facility] CHEM PANEL AGAP 11.7 meq/L 10.0 - 20.0 02/16/2015 [facility] HEMATOLOGY Basophils # 0.1 K/CMM 0.0 - 0.2 02/16/2015 [facility] HEMATOLOGY Lymphocytes # 1.4 K/CMM 1.0 - 5.5 02/16/2015 [facility] HEMATOLOGY Monocytes # 0.9 K/CMM 0.0 - 0.8 02/16/2015 [facility] HEMATOLOGY Segs-Bands # 6.4 K/CMM 1.5 - 8.1 02/16/2015 [facility] HEMATOLOGY Eosinophils 0.1 % 0.0 - 4.0 02/16/2015 [facility] HEMATOLOGY Basophils 0.6 % 0.0 - 1.0 02/16/2015 [facility] HEMATOLOGY Monocytes 10.8 % 2.0 - 12.0 02/16/2015 [facility] HEMATOLOGY Segs 72.6 % 45.0 - 75.0 02/16/2015 [facility] HEMATOLOGY Lymphocytes 15.9 % 20.0 - 40.0 02/16/2015 [facility] HEMATOLOGY Platelet 207 K/CMM 133 - 450 02/16/2015 [facility] HEMATOLOGY MPV 6.6 fL 7.4 - 10.4 02/16/2015 [facility] HEMATOLOGY RDW 12.9 % 11.5 - 14.5 02/16/2015 [facility] HEMATOLOGY MCV 93.8 fL 80.0 - 98.0 02/16/2015 [facility] HEMATOLOGY MCH 31.5 pg 27.0 - 31.0 02/16/2015 [facility] HEMATOLOGY MCHC 33.5 g/dL 32.0 - 36.0 02/16/2015 [facility] HEMATOLOGY Hgb 12.0 g/dL 12.0 - 16.0 02/16/2015 [facility] HEMATOLOGY Hct 35.7 % 36.0 - 48.0 02/16/2015 [facility] HEMATOLOGY WBC 8.8 K/CMM 3.7 - 10.4 02/16/2015 [facility] HEMATOLOGY RBC 3.80 M/CMM 4.20 - 5.40 02/16/2015 [facility] URINE AND STOOL UA Sq Epi Occasional /LPF Few /LPF 02/16/2015 [facility] URINE AND STOOL UA Leuk Est Negative (02/15/15 7:20 PM) Negative 02/16/2015 [facility] URINE AND STOOL UA Nitrite Negative (02/15/15 7:20 PM) Negative 02/16/2015 [facility] URINE AND STOOL UA Urobilinogen 0.2 EU/dL 0.1 - 1.0 02/16/2015 [facility] URINE AND STOOL UA Blood Trace *ABN* (02/15/15 7:20 PM) Negative 02/16/2015 [facility] URINE AND STOOL UA Bili Negative *NA* (02/15/15 7:20 PM) Negative 02/16/2015 [facility] URINE AND STOOL UA Ketones Negative *NA* (02/15/15 7:20 PM) Negative 02/16/2015 [facility] URINE AND STOOL UA Glucose Negative (02/15/15 7:20 PM) Negative 02/16/2015 [facility] URINE AND STOOL UA Protein Negative (02/15/15 7:20 PM) Negative 02/16/2015 [facility] URINE AND STOOL UA pH 6.0 5.0 - 8.0 02/16/2015 [facility] URINE AND STOOL UA Spec Grav <=1.005
*NA*
(02/15/15 7:20 PM) <=1.030 02/16/2015 [facility] URINE AND STOOL UA Turbidity Clear (02/15/15 7:20 PM) Clear 02/16/2015 [facility] URINE AND STOOL UA Color Yellow *NA* (02/15/15 7:20 PM) Yellow 02/16/2015 [facility] Femur series DX Femur series DX Right femur series, Feb 13, 2015 09:20:00 PM CLINICAL HISTORY: See Clinic Indication ; Pain from a fall TECHNIQUE: Routine AP and lateral views of the right femur were obtained. COMPARISON: None FINDINGS: Comminuted patellar fractures are present. Otherwise, no acute fracture, subluxation, or dislocation is present in the right femur. No radioopaque foreign body is present. IMPRESSION: Comminuted patellar fractures. No acute abnormality of right femur. SL: 14 02/13/2015 - - Read by: Kerri Nina MD Dictated Date/time: 02/13/15 22:27 Electronically Signed by: Kerri Nina MD 02/13/15 22:28 FINAL REPORT [facility] Brain wo contrast CT Brain wo contrast CT PROCEDURE: Brain wo contrast CT REASON FOR EXAM: s/p trip and fall. l facial laceration s/p fall lt facial lac CLINICAL INDICATION: Headache with Trauma COMPARISON: None. FINDINGS: There is diffuse volume loss with corresponding prominence of the ventricles and sulci. There are microangiopathic changes of the white matter. There is no hemorrhage, mass or midline shift. Chronic lacunae in the right basal ganglia. IMPRESSION: 1. Chronic changes as described above, no acute intracranial process. 2. No evidence for hemorrhage, mass lesion or acute infarct. DLP: 1075 mGy-cm SL: 13 02/13/2015 - - Read by: Adarsh Castillo MD Dictated Date/time: 02/13/15 20:58 Electronically Signed by: Adarsh Castillo MD 02/13/15 20:59 FINAL REPORT [facility] Facial bone wo contrast CT Facial bone wo contrast CT CT maxillofacial, Feb 13, 2015 08:46:56 PM CLINICAL HISTORY: Left periorb lac ; Pain Post Trauma; fall injury TECHNIQUE: Routine 2.5 mm thick axial images of the face were obtained. Coronal and sagittal reformations were created. FINDINGS: No acute fracture, subluxation, or dislocation is present in the face. Minimal left lateral orbital soft tissue contusion is present. Orbits and globes are intact. Right maxillary sinus hypoplasia is present. Sinuses and air cells are clear. Airway is patent. IMPRESSION: No acute bony abnormality of face. SL: 02/13/2015 - - Read by: Kerri Nina MD Dictated Date/time: 02/13/15 21:29 Electronically Signed by: Kerri Nina MD 02/13/15 21:31 FINAL REPORT [facility] Knee 3 views DX Knee 3 views DX PROCEDURE: Knee 3 views REASON FOR EXAM: See Clinic Indication CLINICAL INFORMATION Pain from a fall COMPARISON: None. Three views right. Comminuted patellar fracture. Joint effusion. Osteopenia and overlying sheets limit evaluation of remaining bone detail. Maintained medial and lateral femoral tibial compartments. SL: 02/13/2015 - - Read by: Adarsh Castillo MD Dictated Date/time: 02/13/15 21:17 Electronically Signed by: Adarsh Castillo MD 02/13/15 21:18 FINAL REPORT [facility] Shoulder series DX Shoulder series DX PROCEDURE: Shoulder series REASON FOR EXAM: eval for humerus fx CLINICAL INFORMATION Pain from a fall COMPARISON: None. Three views left. Impacted humeral neck fracture. Maintained left glenohumeral joint and humeral head contour. Osteopenia limits detail. SL: 02/13/2015 - - Read by: Adarsh Castillo MD Dictated Date/time: 02/13/15 21:18 Electronically Signed by: Adarsh Castillo MD 02/13/15 21:20 FINAL REPORT [facility] Pelvis AP DX Pelvis AP DX Supine AP pelvis, Feb 13, 2015 08:23:17 PM CLINICAL HISTORY: Pain, Trauma ; See Clinic Indication TECHNIQUE: Routine AP view of the pelvis was obtained. COMPARISON: None FINDINGS: No acute fracture, subluxation, or dislocation is present in the pelvis. IMPRESSION: No acute abnormality of pelvis. SL: 02/13/2015 - - Read by: Kerri Nina MD Dictated Date/time: 02/13/15 22:19 Electronically Signed by: Kerri Nina MD 02/13/15 22:19 FINAL REPORT [facility] Chest 1view DX Chest 1view DX Portable one view AP chest, Feb 13, 2015 08:23:17 PM CLINICAL HISTORY: Pain Post Trauma ; fall injury TECHNIQUE: Routine AP view of the chest was obtained. COMPARISON: June 2012 FINDINGS: Lungs are clear. Hyperinflation is present. No pleural effusion or radiographically detectable pneumothorax is present. Cardiomediastinal silhouette is normal. Bones are normal. IMPRESSION: No acute abnormality of the chest. Emphysematous changes. SL: 14 02/13/2015 - - Read by: Kerri Nina MD Dictated Date/time: 02/13/15 22:18 Electronically Signed by: Kerri Nina MD 02/13/15 22:19 FINAL REPORT [facility] Vital Signs Vital Sign Value Date Comments Source Heart Rate 70 03/01/2017 [facility] Systolic (mm Hg) 107 03/01/2017 [facility] Diastolic (mm Hg) 71 03/01/2017 [facility] Temperature Oral (F) 98.3 F 03/01/2017 [facility] Systolic (mm Hg) 125 03/01/2017 [facility] Diastolic (mm Hg) 75 03/01/2017 [facility] Heart Rate 69 03/01/2017 [facility] Temperature Oral (F) 99.3 F 03/01/2017 [facility] Systolic (mm Hg) 148 03/01/2017 [facility] Diastolic (mm Hg) 91 03/01/2017 [facility] Temperature Oral (F) 98.3 F 03/01/2017 [facility] Heart Rate 73 03/01/2017 [facility] Respitory Rate 16 03/01/2017 [facility] Respitory Rate 16 03/01/2017 [facility] Respitory Rate 16 03/01/2017 [facility] Weight 60 02/27/2017 [facility] Height 160.02 cm 02/23/2017 [facility] BMI Calculated 23.96 02/23/2017 [facility] Weight 61.364 02/23/2017 [facility] Weight 54.545 02/23/2017 [facility] BMI Calculated 20.64 02/23/2017 [facility] Height 162.56 cm 02/23/2017 [facility] Heart Rate 61 08/23/2016 [facility] Systolic (mm Hg) 132 08/23/2016 [facility] Diastolic (mm Hg) 73 08/23/2016 [facility] Respitory Rate 16 08/23/2016 [facility] Temperature Oral (F) 97.6 F 08/23/2016 [facility] Respitory Rate 16 08/23/2016 [facility] Heart Rate 74 08/23/2016 [facility] Systolic (mm Hg) 131 08/23/2016 [facility] Diastolic (mm Hg) 83 08/23/2016 [facility] Temperature Oral (F) 98.2 F 08/23/2016 [facility] Systolic (mm Hg) 150 08/23/2016 [facility] Diastolic (mm Hg) 71 08/23/2016 [facility] Temperature Oral (F) 97.7 F 08/23/2016 [facility] Heart Rate 69 08/23/2016 [facility] Respitory Rate 16 08/23/2016 [facility] BMI Calculated 27.54 2016 [facility] Weight 72.784 2016 [facility] Height 162.56 cm 2016 [facility] Height 162.56 cm 08/08/2016 [facility] Weight 70.455 08/08/2016 [facility] BMI Calculated 26.66 08/08/2016 [facility] Systolic (mm Hg) 116 07/14/2016 [facility] Diastolic (mm Hg) 74 07/14/2016 [facility] Heart Rate 78 07/14/2016 [facility] Temperature Oral (F) 98.2 F 07/14/2016 [facility] Respitory Rate 20 07/14/2016 [facility] Systolic (mm Hg) 127 07/14/2016 [facility] Diastolic (mm Hg) 70 07/14/2016 [facility] Respitory Rate 18 07/14/2016 [facility] Heart Rate 86 07/14/2016 [facility] Temperature Oral (F) 98 F 07/14/2016 [facility] Height 162.56 cm 07/14/2016 [facility] BMI Calculated 27.52 07/14/2016 [facility] Weight 72.727 07/14/2016 [facility] Temperature Oral (F) 98.1 F 04/03/2015 [facility] Heart Rate 78 04/03/2015 [facility] Systolic (mm Hg) 135 04/03/2015 [facility] Diastolic (mm Hg) 74 04/03/2015 [facility] Respitory Rate 18 04/03/2015 [facility] Weight 72.727 04/02/2015 [facility] Temperature Oral (F) 97.8 F 04/02/2015 [facility] Systolic (mm Hg) 142 04/02/2015 [facility] Diastolic (mm Hg) 92 04/02/2015 [facility] Heart Rate 79 04/02/2015 [facility] Respitory Rate 18 04/02/2015 [facility] Systolic (mm Hg) 139 02/17/2015 [facility] Diastolic (mm Hg) 72 02/17/2015 [facility] Heart Rate 76 02/17/2015 [facility] Respitory Rate 16 02/17/2015 [facility] Temperature Oral (F) 98.2 F 02/17/2015 [facility] Heart Rate 78 02/17/2015 [facility] Respitory Rate 16 02/17/2015 [facility] Systolic (mm Hg) 141 02/17/2015 [facility] Diastolic (mm Hg) 84 02/17/2015 [facility] Temperature Oral (F) 98.8 F 02/17/2015 [facility] Temperature Oral (F) 98.6 F 02/17/2015 [facility] Heart Rate 81 02/17/2015 [facility] Systolic (mm Hg) 153 02/17/2015 [facility] Diastolic (mm Hg) 86 02/17/2015 [facility] Respitory Rate 17 02/17/2015 [facility] Weight 72.727 02/16/2015 [facility] Height 157.48 cm 02/16/2015 [facility] BMI Calculated 29.33 02/16/2015 [facility] Height 165.1 cm 02/15/2015 [facility] BMI Calculated 26.68 02/15/2015 [facility] Weight 72.727 02/15/2015 [facility] Heart Rate 85 02/14/2015 [facility] Respitory Rate 16 02/14/2015 [facility] Systolic (mm Hg) 145 02/14/2015 [facility] Diastolic (mm Hg) 86 02/14/2015 [facility] Temperature Oral (F) 98.4 F 02/14/2015 [facility] Heart Rate 78 02/14/2015 [facility] Respitory Rate 17 02/14/2015 [facility] Systolic (mm Hg) 155 02/14/2015 [facility] Diastolic (mm Hg) 76 02/14/2015 [facility] Temperature Oral (F) 97.7 F 02/14/2015 [facility] Heart Rate 84 02/14/2015 [facility] Respitory Rate 16 02/14/2015 [facility] Temperature Oral (F) 98.5 F 02/14/2015 [facility] Systolic (mm Hg) 146 02/14/2015 [facility] Diastolic (mm Hg) 79 02/14/2015 [facility] Height 157.48 cm 02/14/2015 [facility] Weight 70.455 02/14/2015 [facility] BMI Calculated 28.41 02/14/2015 [facility] Encounters Location Location Details Encounter Type Encounter Number Reason For Visit Attending Provider ADM Date DC Date Status Source [facility] OBS Observation Patient [id number] Calvin Rogers 02/14/2015 02/14/2015 [facility] OBS Observation Patient [id number] Flores Joseph 02/15/2015 02/17/2015 [facility] [id number] Jose Miguel Oh 04/02/2015 04/03/2015 [facility] Emergency [id number] Maximilian Banda 07/14/2016 07/14/2016 [facility] Inpatient [id number] Veronicaviolette Goyal 08/08/2016 08/23/2016 [facility] Inpatient [id number] Flex Locke 02/23/2017 03/01/2017 [facility] Procedures Procedure Code Date Perfomer Comments Source Cholecystostomy [id number] [facility]
--- OUTSIDE RECORDS SUMMARY | 2018-03-04 11:32 | XMS REPORT | Summary of Care ---
Author Author [facility] Organization [facility] Address Unknown Phone Unavailable Encounter [facility](ERNIE) [id number] Date(s): 08/08/16 - 08/23/16 [facility] [id number] [place] [address]- Discharge Disposition: Detention Facility Attending Physician: Charo Goyal MD Admitting Physician: Charo Goyal MD Vital Signs 1 2 3 Most recent to oldest [Reference Range]: 162.56 cm (08/09/16 6:35 AM) 162.56 cm (08/08/16 5:23 PM) Height 97.6 DegF (08/23/16 11:29 AM) 98.2 DegF (08/23/16 8:06 AM) 97.7 DegF (08/23/16 4:00 AM) Temperature Oral [96.4-99.1 DegF] 132/73 mmHg (08/23/16 11:29 AM) 131/83 mmHg (08/23/16 8:06 AM) 150/71 mmHg *HI* (08/23/16 4:00 AM) Blood Pressure [90-140/60-90 mmHg] 16 BRMIN (08/23/16 11:29 AM) 16 BRMIN (08/23/16 8:06 AM) 16 BRMIN (08/23/16 4:00 AM) Respiratory Rate [14-20 BRMIN] 61 bpm (08/23/16 11:29 AM) 74 bpm (08/23/16 8:06 AM) 69 bpm (08/23/16 4:00 AM) Peripheral Pulse Rate [60-100 bpm] 72.784 kg (08/09/16 6:35 AM) 70.455 kg (08/08/16 5:23 PM) Weight 27.54 m2 (08/09/16 6:35 AM) 26.66 m2 (08/08/16 5:23 PM) Body Mass Index Problem List Condition Effective Dates Status Health Status Informant Accidental Resolved fall(Confirmed) Anxiety(Confirmed) Active Diarrhea(Confirmed) 08/07/16 Resolved History of Resolved shingles(Confirmed) Hypertension(Confirm Active ed) Allergies, Adverse Reactions, Alerts Substance Reaction Severity Status codeine Active Medications aspirin 325 mg, Route: PO, ONCE, Dosing Weight 72.784, kg, Start date: 08/11/16 20:52:00 CDT, Stop date: 08/11/16 20:52:00 CDT Start Date: 08/11/16 Stop Date: 08/11/16 Status: Completed Ativan 0.5 mg, 0.25 mL, Route: IVP, Drug form: INJ, Q6H, Dosing Weight 72.784, kg, PRN Anxiety, Start date: 08/11/16 23:00:00 CDT, Duration: 30 day, Stop date: 7 22:59:00 CDT Notes: (Same as: Ativan) Start Date: 08/11/16 Stop Date: 08/23/16 Status: Discontinued atropine 0.5 mg, Route: IVP, PRN, Dosing Weight 72.784, kg, PRN Bradycardia, Start date: 08/18/16 19:10:00 CDT, Duration: 30 day, Stop date: 09/17/16 19:09:00 CDT Start Date: 08/18/16 Stop Date: 08/18/16 Status: Deleted atropine 0.5 mg, 5 mL, Route: IV, Drug form: INJ, PRN, Dosing Weight 72.784, kg, PRN Bharath ycardia, Start date: 08/17/16 2:36:00 CDT, Duration: 30 day, Stop date: 09/16/16 2:35:00 CDT Start Date: 08/17/16 Stop Date: 08/23/16 Status: Discontinued Bentyl 20 mg, 1 tab, Route: PO, Drug form: TAB, ONCE, Dosing Weight 70.455, kg, Start d ate: 08/09/16 5:16:00 CDT, Stop date: 08/09/16 5:16:00 CDT Notes: (Same as: Bentyl) Start Date: 08/09/16 Stop Date: 08/09/16 Status: Completed Cipro 400 mg, Route: IVPB, ONCE, Dosing Weight 70.455, kg, Priority: STAT, Start date: 08/09/16 2:55:00 CDT, Stop date: 08/09/16 2:55:00 CDT Start Date: 08/09/16 Stop Date: 08/09/16 Status: Completed Cipro 500 mg, 1 tab, Route: PO, Drug form: TAB, [id number], Start date: 08/11/16 21:00:00 CDT, Duration: 30 day, Stop date: 09/10/16 9:00:00 CDT Notes: May interfere w/enteral feedings - Take 1 hr before or 2 hrs after anta cids, dairy pdt & minerals. On empty stomach. Start Date: 08/11/16 Stop Date: 08/12/16 Status: Voided With Results ciprofloxacin 400 mg, 200 mL, Route: IVPB, Drug form: INJ, [id number], Dosing Weight 72.784, kg, Start date: 08/09/16 9:00:00 CDT, Duration: 30 day, Stop date: 09/07/16 21:00:00 CDT Notes: Do not refrigerate Start Date: 08/09/16 Stop Date: 08/11/16 Status: Discontinued enalapril 10 mg, 1 tab, Route: PO, Drug form: TAB, Daily, Dosing Weight 72.784, kg, Start date: 08/09/16 9:00:00 CDT, Duration: 30 day, Stop date: 09/07/16 9:00:00 CDT Notes: (Same as: Vasotec) Start Date: 08/09/16 Stop Date: 08/23/16 Status: Discontinued Flagyl 500 mg, Route: IVPB, ONCE, Dosing Weight 70.455, kg, Priority: STAT, Start date: 08/09/16 2:55:00 CDT, Stop date: 08/09/16 2:55:00 CDT Start Date: 08/09/16 Stop Date: 08/09/16 Status: Completed Flagyl 500 mg, 1 tab, Route: PO, Drug form: TAB, [id number], Start date: 08/12/16 0:00:00 C DT, Duration: 30 day, Stop date: 09/10/16 16:00:00 CDT Notes: (Same as: Flagyl) Take with food/ avoid alcohol Start Date: 08/12/16 Stop Date: 08/12/16 Status: Voided With Results hydrALAZINE 10 mg, 0.5 mL, Route: IVP, Drug form: INJ, Q4H, Dosing Weight 72.784, kg, PRN El evated BP, Start date: 08/09/16 8:05:00 CDT, Duration: 30 day, Stop date: 8:04:00 CDT, SBP>160mmHg Notes: (Same as: Apresoline)Push over 5 minutes Start Date: 08/09/16 Stop Date: 08/23/16 Status: Discontinued Keppra 500 mg oral tablet 500 mg=1 tab, PO, Q12H, 0 Refill(s) Start Date: 08/19/16 Status: Ordered Keppra 500 mg oral tablet 500 mg, 1 tab, Route: PO, Drug form: TAB, Q12H, Dosing Weight 72.784, kg, Start date: 08/15/16 21:00:00 CDT, Duration: 30 day, Stop date: 09/14/16 9:00:00 CDT Notes: (Same as:Keppra) Start Date: 08/15/16 Stop Date: 08/23/16 Status: Discontinued Lexapro PO, Daily, 0 Refill(s) Start Date: 08/11/16 Status: Ordered LORazepam 1 mg, 0.5 mL, Route: IV, Drug form: INJ, Q1H, Dosing Weight 72.784, kg, PRN Seiz ure, for any seizure greater than 2 minutes, Start date: 08/11/16 21:56:00 CDT, Duration: 30 day, Stop date: 09/10/16 21:55:00 CDT Notes: (Same as: Ativan) Start Date: 08/11/16 Stop Date: 08/23/16 Status: Discontinued LORazepam 1 mg, 0.5 mL, Route: IV, Drug form: INJ, ONCE, Dosing Weight 72.784, kg, Priorit y: NOW, Start date: 08/11/16 21:44:00 CDT, Stop date: 08/11/16 21:44:00 CDT Notes: (Same as: Ativan) Start Date: 08/11/16 Stop Date: 08/11/16 Status: Completed Lovenox 40 mg, 0.4 mL, Route: SUB-Q, Drug form: INJ, [id number], Dosing Weight 72.784, kg, Start date: 08/09/16 18:00:00 CDT, Duration: 30 day, Stop date: 09/07/16 18:00: 00 CDT Notes: (Same as: Lovenox) Start Date: 08/09/16 Stop Date: 08/23/16 Status: Discontinued melatonin 3 mg oral tablet 3 mg, 1 tab, Route: PO, Drug Form: TAB, Dosing Weight 72.784, kg, Bedtime, PRN S leep, Start date: 08/10/16 18:19:00 CDT, Duration: 30 day, Stop date: 09/09/16 1 8:18:00 CDT Notes: (Same as: Melatonin) Start Date: 08/10/16 Stop Date: 08/23/16 Status: Discontinued melatonin 3 mg oral tablet 3 mg=1 tab, PO, Bedtime, PRN Sleep, 0 Refill(s) Start Date: 08/19/16 Status: Ordered metroNIDAZOLE 500 mg, 100 mL, Route: IVPB, Drug form: INJ, ABXQ8H, Dosing Weight 72.784, kg, S tart date: 08/09/16 8:00:00 CDT, Duration: 30 day, Stop date: 09/08/16 0:00:00 C DT Notes: (Same as: Flagyl) Avoid alcohol. Start Date: 08/09/16 Stop Date: 08/11/16 Status: Discontinued morphine Sulfate 2 mg, Route: IVP, ONCE, Dosing Weight 70.455, kg, Priority: STAT, Start date: 1:39:00 CDT, Stop date: 08/09/16 1:39:00 CDT Start Date: 08/09/16 Stop Date: 08/09/16 Status: Completed morphine Sulfate 4 mg, 1 mL, Route: IVP, Drug form: SOLN, Q4H, Dosing Weight 72.784, kg, PRN Pain Score 6-10, Start date: 08/09/16 19:32:00 CDT, Duration: 30 day, Stop date: 02/15 19:31:00 CDT Notes: (Same as:MORPhine Sulfate) Start Date: 08/09/16 Stop Date: 08/23/16 Status: Discontinued morphine Sulfate 4 mg, 1 mL, Route: IVP, Drug form: SOLN, ONCE, Dosing Weight 72.784, kg, Start d ate: 08/09/16 17:54:00 CDT, Stop date: 08/09/16 17:54:00 CDT Notes: (Same as:MORPhine Sulfate) Start Date: 08/09/16 Stop Date: 08/09/16 Status: Discontinued multivitamin with minerals 1 tab, Route: PO, Drug Form: TAB, Dosing Weight 72.784, kg, Daily, Start date: 0 08/09/16 9:00:00 CDT, Duration: 30 day, Stop date: 09/07/16 9:00:00 CDT Notes: (Same as:Thera-M, Theragran-M)WASTE: F/P - Black; E - Municipal Trash Bin Give with food. Start Date: 08/09/16 Stop Date: 08/23/16 Status: Discontinued nitroglycerin 0.4 mg sublingual tablet 0.4 mg, 1 tab, Route: SL, Drug form: TAB, Q5Min, Dosing Weight 72.784, kg, PRN C hest Pain, Start date: 08/18/16 19:10:00 CDT, Duration: 30 day, Stop date: 09/17 19:09:00 CDT Start Date: 08/18/16 Stop Date: 08/18/16 Status: Deleted nitroglycerin 0.4 mg sublingual tablet 0.4 mg, 1 tab, Route: SL, Drug form: TAB, Q5Min, Dosing Weight 72.784, kg, PRN C hest Pain, Start date: 08/17/16 2:36:00 CDT, Duration: 30 day, Stop date: 2:35:00 CDT Notes: (Same as:Nitroquick, Nitrostat)"Do Not Crush" Sublingual tablet Start Date: 08/17/16 Stop Date: 08/23/16 Status: Discontinued Norton 5/325 oral tablet 1 tab, Route: PO, Drug Form: TAB, Dosing Weight 70.455, kg, ONCE, STAT, Start da te: 08/08/16 22:01:00 CDT, Stop date: 08/08/16 22:01:00 CDT Notes: (Same as: Norton 325/5) Do not exceed 4gm/day of acetaminophen. Start Date: 08/08/16 Stop Date: 08/08/16 Status: Completed nortriptyline 20 mg, 2 cap, Route: PO, Drug form: CAP, Bedtime, Dosing Weight 72.784, kg, Star t date: 08/09/16 21:00:00 CDT, Duration: 30 day, Stop date: 09/07/16 21:00:00 CD T Notes: (Same as:Misti Peñatyradha) Start Date: 08/09/16 Stop Date: 08/11/16 Status: Discontinued NS (Bolus) IV 1,000 mL, 1,000 ml/hr, Infuse Over: 1 hr, Route: IV, 1,000, Drug form: INJ, ONCE , Priority: STAT, Dosing Weight 70.455 kg, Start date: 08/08/16 17:27:00 CDT, Du ration: 1 doses or times, Stop date: 08/08/16 17:27:00 CDT Start Date: 08/08/16 Stop Date: 08/08/16 Status: Completed ondansetron 4 mg, 2 mL, Route: IVP, Drug form: INJ, Q8H, Dosing Weight 72.784, kg, PRN Nause a & Vomiting, Start date: 08/09/16 7:52:00 CDT, Duration: 30 day, Stop date: 09/08/16 7:51:00 CDT Notes: (Same as: Sandi) MEDICATION WASTE Product Size: 4 mgProduct Was mary: ___ mg Start Date: 08/09/16 Stop Date: 08/23/16 Status: Discontinued pantoprazole 40 mg, 1 tab, Route: PO, Drug form: ECTAB, BID-Before Meals, Dosing Weight 72.78 4, kg, Start date: 08/11/16 7:30:00 CDT, Duration: 30 day, Stop date: 09/09/16 1 6:30:00 CDT Notes: Tablet should not be chewed or crushed.(Same as: Protonix) Start Date: 08/11/16 Stop Date: 08/23/16 Status: Discontinued pantoprazole 40 mg, 1 tab, Route: PO, Drug form: ECTAB, Daily, Dosing Weight 72.784, kg, Star t date: 08/09/16 9:00:00 CDT, Duration: 30 day, Stop date: 09/07/16 9:00:00 CDT Notes: Tablet should not be chewed or crushed.(Same as: Protonix) Start Date: 08/09/16 Stop Date: 08/10/16 Status: Discontinued pantoprazole 40 mg oral enteric coated tablet 40 mg=1 tab, PO, BID-Before Meals, 0 Refill(s) Start Date: 08/19/16 Status: Ordered pneumococcal 13-valent vaccine 0.5 mL, Route: IM, Drug Form: INJ, Daily, Start date: 08/09/16 9:00:00 CDT, Stop date: 08/09/16 11:00:00 CDT Notes: Lightly roll vial (DO NOT SHAKE) before administration. (Same as: Prevna r 13) Start Date: 08/09/16 Stop Date: 08/09/16 Status: Completed potassium chloride 40 mEq, 2 tab, Route: PO, Drug form: ERTAB, ONCE, Dosing Weight 72.784, kg, Star t date: 08/10/16 9:00:00 CDT, Stop date: 08/10/16 9:00:00 CDT Notes: (Same as: K-Dur 20)"Do Not Crush" With food and full glass of water Start Date: 08/10/16 Stop Date: 08/10/16 Status: Completed potassium chloride 40 mEq, 2 tab, Route: PO, Drug form: ERTAB, ONCE, Dosing Weight 72.784, kg, Star t date: 08/14/16 13:25:00 CDT, Stop date: 08/14/16 13:25:00 CDT Notes: (Same as: K-Dur 20)"Do Not Crush" With food and full glass of water Start Date: 08/14/16 Stop Date: 08/14/16 Status: Completed potassium chloride 10 mEq, 100 mL, Route: IVPB, Drug form: INJ, Q1H, Dosing Weight 72.784, kg, Tota l Dose=20 meq, Start date: 08/10/16 9:00:00 CDT, Duration: 2 doses or times, Sto p date: 08/10/16 10:00:00 CDT, Peripheral Line Notes: Infuse at a rate of 10 mEq/hr.(Same as: KCL) Start Date: 08/10/16 Stop Date: 08/10/16 Status: Completed Restoril 7.5 mg, 1 cap, Route: PO, Drug form: CAP, Bedtime, Dosing Weight 72.784, kg, PRN Sleep, Start date: 08/09/16 18:00:00 CDT, Duration: 30 day, Stop date: 09/08/16 17:59:00 CDT Notes: (Same As: Restoril) Start Date: 08/09/16 Stop Date: 08/09/16 Status: Discontinued Restoril 15 mg, 1 cap, Route: PO, Drug form: CAP, Bedtime, Dosing Weight 72.784, kg, PRN Sleep, Start date: 08/09/16 18:01:00 CDT, Duration: 30 day, Stop date: 09/08/16 18:00:00 CDT Notes: (Same As: Restoril) Start Date: 08/09/16 Stop Date: 08/10/16 Status: Discontinued Saline Flush 0.9% 10 mL, Route: IVP, Drug Form: INJ, Dosing Weight 70.455, kg, PRN, PRN Line Flush , Start date: 08/08/16 17:28:00 CDT, Duration: 30 day, Stop date: 09/07/16 17:27 :00 CDT Notes: (Same as: BD Posiflush) Start Date: 08/08/16 Stop Date: 08/12/16 Status: Discontinued sertraline 50 mg oral tablet 25 mg=0.5 tab, PO, Bedtime, 0 Refill(s) Start Date: 08/19/16 Status: Ordered tramadol 50 mg oral tablet 100 mg, 2 tab, Route: PO, Drug form: TAB, Q6H, PRN Pain Score 7-10, Start date: 08/09/16 8:06:00 CDT, Duration: 30 day, Stop date: 09/08/16 8:05:00 CDT Notes: Not to exceed 400mg/day. (Same As: Ultram) Start Date: 08/09/16 Stop Date: 08/12/16 Status: Discontinued tramadol 50 mg oral tablet 50 mg, 1 tab, Route: PO, Drug form: TAB, Q6H, Dosing Weight 72.784, kg, PRN Pain Score 6-10, Start date: 08/09/16 7:59:00 CDT, Duration: 30 day, Stop date: 08/30 7:58:00 CDT Notes: Not to exceed 400mg/day. (Same As: Ultram) Start Date: 08/09/16 Stop Date: 08/23/16 Status: Discontinued verapamil 240 mg, Route: PO, Drug form: ERTAB, Daily, Dosing Weight 72.784, kg, Start date : 08/09/16 9:00:00 CDT, Duration: 30 day, Stop date: 09/07/16 9:00:00 CDT Start Date: 08/09/16 Stop Date: 08/23/16 Status: Discontinued Vitamin D2 400 IntlUnit, Route: PO, Daily, Dosing Weight 72.784, kg, Start date: 08/09/16 9 :00:00 CDT, Duration: 30 day, Stop date: 09/07/16 9:00:00 CDT Start Date: 08/09/16 Stop Date: 08/09/16 Status: Canceled Vitamin D3 400 IntlUnit, 1 tab, Route: PO, Drug form: TAB, Daily, Start date: 08/09/16 9:00 :00 CDT, Duration: 30 day, Stop date: 09/07/16 9:00:00 CDT Notes: Same as Vitamin D3 Start Date: 08/09/16 Stop Date: 08/09/16 Status: Deleted Zofran 4 mg, 2 mL, Route: IVP, Drug form: INJ, ONCE, Dosing Weight 70.455, kg, Priority : STAT, Start date: 08/08/16 22:08:00 CDT, Stop date: 08/08/16 22:08:00 CDT Notes: (Same as: Zofran) MEDICATION WASTE Product Size: 4 mgProduct Was mary: 0___ mg Start Date: 08/08/16 Stop Date: 08/08/16 Status: Completed Zofran 4 mg, Route: IVP, Drug form: INJ, ONCE, Dosing Weight 70.455, kg, Priority: STAT , Start date: 08/09/16 1:39:00 CDT, Stop date: 08/09/16 1:39:00 CDT Start Date: 08/09/16 Stop Date: 08/09/16 Status: Completed Zoloft 25 mg, 0.5 tab, Route: PO, Drug form: TAB, Bedtime, Dosing Weight 72.784, kg, St art date: 08/15/16 21:24:00 CDT, Duration: 30 day, Stop date: 09/14/16 21:00:00 CDT Notes: (Same as: Zoloft) Start Date: 08/15/16 Stop Date: 08/23/16 Status: Discontinued Results ELECTROLYTES 1 2 3 Most recent to oldest [Reference Range]: 138 mEq/L (08/15/16 8:24 AM) 136 mEq/L (08/14/16 8:33 AM) 134 mEq/L *LOW* (08/11/16 8:59 PM) Sodium Lvl [135-145 mEq/L] 3.6 mEq/L (08/15/16 8:24 AM) 3.2 mEq/L *LOW* (08/14/16 8:33 AM) 3.5 mEq/L (08/11/16 8:59 PM) Potassium Lvl [3.5-5.1 mEq/L] 102 mEq/L (08/15/16 8:24 AM) 101 mEq/L (08/14/16 8:33 AM) 101 mEq/L (08/11/16 8:59 PM) Chloride Lvl [95-109 mEq/L] 24 mEq/L (08/15/16 8:24 AM) 24 mEq/L (08/14/16 8:33 AM) 19 mEq/L *LOW* (08/11/16 8:59 PM) CO2 [24-32 mEq/L] 15.6 mEq/L (08/15/16 8:24 AM) 14.2 mEq/L (08/14/16 8:33 AM) 17.5 mEq/L (08/11/16 8:59 PM) AGAP [10.0-20.0 mEq/L] CHEM PANEL 1 2 3 Most recent to oldest [Reference Range]: 0.57 mg/dL (08/15/16 8:24 AM) 0.54 mg/dL (08/14/16 8:33 AM) 0.63 mg/dL (08/11/16 8:59 PM) Creatinine Lvl [0.50-1.40 mg/dL] 90 mL/min/1.73m2 1 *NA* (08/15/16 8:24 AM) 91 mL/min/1.73m2 2 *NA* (08/14/16 8:33 AM) 87 mL/min/1.73m2 3 *NA* (08/11/16 8:59 PM) eGFR 11 mg/dL (08/15/16 8:24 AM) 12 mg/dL (08/14/16 8:33 AM) 8 mg/dL (08/11/16 8:59 PM) BUN [7-22 mg/dL] 9 (08/08/16 5:31 PM) B/C Ratio [6-25] 106 mg/dL *HI* (08/15/16 8:24 AM) 105 mg/dL *HI* (08/14/16 8:33 AM) 102 mg/dL *HI* (08/11/16 8:59 PM) Glucose Lvl [70-99 mg/dL] 7.5 g/dL (08/08/16 5:31 PM) Total Protein [6.4-8.4 g/dL] 3.7 g/dL (08/08/16 5:31 PM) Albumin Lvl [3.5-5.0 g/dL] 3.8 g/dL (08/08/16 5:31 PM) Globulin [2.7-4.2 g/dL] 1.0 (08/08/16 5:31 PM) A/G Ratio [0.7-1.6] 8.5 mg/dL (08/15/16 8:24 AM) 8.4 mg/dL *LOW* (08/14/16 8:33 AM) 8.9 mg/dL (08/11/16 8:59 PM) Calcium Lvl [8.5-10.5 mg/dL] 3.2 mg/dL (08/11/16 8:59 PM) 2.3 mg/dL *LOW* (08/08/16 5:31 PM) Phosphorus [2.5-4.5 mg/dL] 1.9 mg/dL (08/11/16 8:59 PM) 1.5 mg/dL *LOW* (08/08/16 5:31 PM) Magnesium Lvl [1.8-2.4 mg/dL] 9 unit/L (08/08/16 5:31 PM) ALT [0-65 unit/L] 19 unit/L (08/08/16 5:31 PM) AST [0-37 unit/L] 65 unit/L (08/08/16 5:31 PM) Alk Phos [39-136 unit/L] 0.5 mg/dL (08/08/16 5:31 PM) Bili Total [0.2-1.3 mg/dL] 92 unit/L (08/08/16 5:31 PM) Lipase Lvl [73-393 unit/L] 1.3 mMol/L (08/11/16 8:59 PM) Lactic Acid Lvl [0.5-2.2 mMol/L] 1Result Comment: [...] 3 Most recent to oldest [Reference Range]: 45 unit/L (08/08/16 5:31 PM) Total CK [12-191 unit/L] <0.5 ng/mL (08/08/16 5:31 PM) CK MB [0.5-3.6 ng/mL] <1.1 (08/08/16 5:31 PM) CK MB Index [0.0-2.5] <0.02 ng/mL (08/08/16 5:31 PM) Troponin-I [0.00-0.40 ng/mL] URINE AND STOOL 1 2 3 Most recent to oldest [Reference Range]: Clear (08/10/16 5:36 PM) UA Turbidity [Clear] Ltyellow *NA* (08/10/16 5:36 PM) UA Color 7.0 (08/10/16 5:36 PM) UA pH [5.0-8.0] 1.005 (08/10/16 5:36 PM) UA Spec Grav [<=1.030] Negative mg/dL *NA* (08/10/16 5:36 PM) UA Glucose [Negative mg/dL] Small *ABN* (08/10/16 5:36 PM) UA Blood [Negative] Trace mg/dL *ABN* (08/10/16 5:36 PM) UA Ketones [Negative mg/dL] Negative mg/dL (08/10/16 5:36 PM) UA Protein [Negative mg/dL] <=1.0 mg/dL *NA* (08/10/16 5:36 PM) UA Urobilinogen [0.1-1.0 mg/dL] Negative *NA* (08/10/16 5:36 PM) UA Bili [Negative] Small *ABN* (08/10/16 5:36 PM) UA Leuk Est [Negative] Negative (08/10/16 5:36 PM) UA Nitrite [Negative] 4 /HPF (08/10/16 5:36 PM) UA WBC [0-5 /HPF] 1 /HPF (08/10/16 5:36 PM) UA RBC [0-2 /HPF] Occasional /HPF *NA* (08/10/16 5:36 PM) UA Bacteria [None Seen /HPF] Few /LPF *NA* (08/10/16 5:36 PM) UA Sq Epi [Few /LPF] 1 /LPF (08/10/16 5:36 PM) UA Hyal Cast [0-2 /LPF] None Seen (08/14/16 6:03 AM) Fecal Leukocyte HEMATOLOGY 1 2 3 Most recent to oldest [Reference Range]: 7.4 K/CMM (08/15/16 8:24 AM) 7.7 K/CMM (08/14/16 8:33 AM) 10.4 K/CMM (08/11/16 8:59 PM) WBC [3.7-10.4 K/CMM] 4.50 M/CMM (08/15/16 8:24 AM) 4.36 M/CMM (08/14/16 8:33 AM) 4.48 M/CMM (08/11/16 8:59 PM) RBC [4.20-5.40 M/CMM] 13.5 g/dL (08/15/16 8:24 AM) 13.2 g/dL (08/14/16 8:33 AM) 13.7 g/dL (08/11/16 8:59 PM) Hgb [12.0-16.0 g/dL] 39.6 % (08/15/16 8:24 AM) 38.6 % (08/14/16 8:33 AM) 39.9 % (08/11/16 8:59 PM) Hct [36.0-48.0 %] 88.2 fL (08/15/16 8:24 AM) 88.7 fL (08/14/16 8:33 AM) 89.1 fL (08/11/16 8:59 PM) MCV [80.0-98.0 fL] 30.1 pg (08/15/16 8:24 AM) 30.4 pg (08/14/16 8:33 AM) 30.5 pg (08/11/16 8:59 PM) MCH [27.0-31.0 pg] 34.1 g/dL (08/15/16 8:24 AM) 34.2 g/dL (08/14/16 8:33 AM) 34.2 g/dL (08/11/16 8:59 PM) MCHC [32.0-36.0 g/dL] 13.8 % (08/15/16 8:24 AM) 13.6 % (08/14/16 8:33 AM) 13.7 % (08/11/16 8:59 PM) RDW [11.5-14.5 %] 272 K/CMM (08/15/16 8:24 AM) 230 K/CMM (08/14/16 8:33 AM) 242 K/CMM (08/11/16 8:59 PM) Platelet [133-450 K/CMM] 7.2 fL *LOW* (08/15/16 8:24 AM) 7.5 fL (08/14/16 8:33 AM) 7.1 fL *LOW* (08/11/16 8:59 PM) MPV [7.4-10.4 fL] 73.2 % (08/15/16 8:24 AM) 71.5 % (08/14/16 8:33 AM) 72.7 % (08/11/16 8:59 PM) Segs [45.0-75.0 %] 14.9 % *LOW* (08/15/16 8:24 AM) 16.3 % *LOW* (08/14/16 8:33 AM) 18.0 % *LOW* (08/11/16 8:59 PM) Lymphocytes [20.0-40.0 %] 10.2 % (08/15/16 8:24 AM) 10.4 % (08/14/16 8:33 AM) 8.7 % (08/11/16 8:59 PM) Monocytes [2.0-12.0 %] 1.1 % (08/15/16 8:24 AM) 1.2 % (08/14/16 8:33 AM) 0.1 % (08/11/16 8:59 PM) Eosinophils [0.0-4.0 %] 0.6 % (08/15/16 8:24 AM) 0.6 % (08/14/16 8:33 AM) 0.5 % (08/11/16 8:59 PM) Basophils [0.0-1.0 %] 5.4 K/CMM (08/15/16 8:24 AM) 5.5 K/CMM (08/14/16 8:33 AM) 7.5 K/CMM (08/11/16 8:59 PM) Segs-Bands # [1.5-8.1 K/CMM] 1.1 K/CMM (08/15/16 8:24 AM) 1.3 K/CMM (08/14/16 8:33 AM) 1.9 K/CMM (08/11/16 8:59 PM) Lymphocytes # [1.0-5.5 K/CMM] 0.8 K/CMM (08/15/16 8:24 AM) 0.8 K/CMM (08/14/16 8:33 AM) 0.9 K/CMM *HI* (08/11/16 8:59 PM) Monocytes # [0.0-0.8 K/CMM] 0.1 K/CMM (08/15/16 8:24 AM) 0.1 K/CMM (08/14/16 8:33 AM) Eosinophils # [0.0-0.5 K/CMM] 0.1 K/CMM (08/11/16 8:59 PM) 0.1 K/CMM (08/11/16 4:18 AM) 0.1 K/CMM (08/10/16 4:15 AM) Basophils # [0.0-0.2 K/CMM] 15.1 seconds *HI* (08/11/16 8:59 PM) PT [12.0-14.7 seconds] 1.17 (08/11/16 8:59 PM) INR [0.85-1.17] 40.1 seconds *HI* (08/11/16 8:59 PM) PTT [22.9-35.8 seconds] Immunizations Not Given Vaccine [...] Plan Extracted from: Title: Clinical Document Author: Fahad Sanchez MD Date: 08/23/16 Psychiatry Progress Note. FAHAD SANCHEZ M.D. Board Certified in Adult and Geriatric Psychiatry. Patient seen, Events noted. SUBJECTIVE : Feels better. OBJECTIVE : She is alert,awake, mood better, no agitation. no s.e of meds. Allergies: codeine Labs (Last four charted values) WBC 7.4(JUL 16)7.7(JUL 15)10.4(JUL 12)8.4(JUL 12) Hgb 13.5(JUL 16)13.2(JUL 15)13.7(JUL 12)13.7(JUL 12) Hct 39.6(JUL 16)38.6(JUL 15)39.9(JUL 12)40.3(JUL 12) Plt 272(JUL 16)230(JUL 15)242(JUL 12)239(JUL 12) Na 138(JUL 16)136(JUL 15)L 134(JUL 12)138(JUL 12) K 3.6(JUL 16)L 3.2(JUL 15)3.5(JUL 12)L 3.2(AUG 11) CO2 24(JUL 16)24(JUL 15)L 19(JUL 12)L 19(JUL 12) Cl 102(JUL 16)101(JUL 15)101(JUL 12)102(JUL 12) Cr 0.57(JUL 16)0.54(JUL 15)0.63(JUL 12)0.64(AUG 11) BUN 11(JUL 16)12(JUL 15)8(AUG 11)L 5(AUG 11) Glucose Random H 106(AUG 15)H 105(JUL 15)H 102(JUL 12)H 105(AUG 11) Mg 1.9(AUG 11)L 1.5(AUG 08) Phos 3.2(AUG 11)L 2.3(AUG 08) Ca 8.5(AUG 15)L 8.4(JUL 15)8.9(AUG 11)8.7(AUG 11) PT H 15.1(AUG 11) INR 1.17(AUG 11) PTT H 40.1(AUG 11) Troponin <0.02(AUG 08) CK MB <0.5(AUG 08) Total CK 45(AUG 08) MENTAL STATUS EXAM: Alert, awake, mood fair. 0 x 3 , no agitation. ASSESSMENT: 1. Major depression, recurrent. 2. Delirium, mixed etiology, likely causes, metabolic causes, urinary tract infection.IMPROVING. PLAN: She is making progress. Continue zoloft 25 mg po bedtime. Continue current treatment and care. Monitor mood, mental status.
--- OUTSIDE RECORDS SUMMARY | 2018-03-04 11:32 | XMS REPORT | Summary of Care ---
Author Author [facility] Organization [facility] Address Unknown Phone Unavailable Encounter ORVILLE Easton(ERNIE) [id number] Date(s): 07/14/16 - 07/14/16 [facility] [address] [place] [address]- Discharge Diagnosis: Closed fracture of left patella with routine healing Discharge Diagnosis: Facial injury Discharge Diagnosis: Unspecified fall, initial encounter Discharge Disposition: Home or Self Care Attending Physician: Maximilian Banda MD Vital Signs Most recent to 1 2 oldest [Reference Range]: Height 162.56 cm (07/14/16 1:06 PM) Temperature Oral 98.2 DegF 98 DegF [96.4-99.1 DegF] (07/14/16 4:15 PM) (07/14/16 1:06 PM) Blood Pressure 116/74 mmHg 127/70 mmHg [90-140/60-90 mmHg] (07/14/16 4:15 PM) (07/14/16 1:06 PM) Respiratory Rate 20 BRMIN 18 BRMIN [14-20 BRMIN] (07/14/16 4:15 PM) (07/14/16 1:06 PM) Peripheral Pulse 78 bpm 86 bpm Rate [60-100 bpm] (07/14/16 4:15 PM) (07/14/16 1:06 PM) Weight 72.727 kg (07/14/16 1:06 PM) Body Mass Index 27.52 m2 (07/14/16 1:06 PM) Problem List Condition Effective Dates Status Health Status Informant Anxiety(Confirmed) Active Hypertension(Confirm Active ed) Allergies, Adverse Reactions, Alerts Substance Reaction Severity Status codeine Active Medications Motrin 600 mg oral tablet 600 mg=1 tab, PO, Q6H, PRN Pain, take with food, X 10 day, # 40 tab, 0 Refill(s) Start Date: 07/14/16 Stop Date: 07/24/16 Status: Ordered Results No data available for this section [...]
--- NOTE | 2018-03-04 13:12 | Diagnostic Imaging Report ---
EXAM: ANKLE 3+ VIEWS LEFT DATE: 03/04/2018 12:02 PM INDICATION: ^pain ^[id number] ^[id number] fall/pain COMPARISON: None FINDINGS: Bones are demineralized, limiting evaluation. No significant soft tissue swelling present in the ankle. Mortise is symmetric with no abnormality of the talar dome. Base of fifth metatarsal in adequately evaluated. IMPRESSION: No definite acute finding in the ankle. Base of fifth metatarsal suboptimally evaluated. If pain referable to this region, dedicated foot radiographs would be recommended. Signed by: Dr. Kane Mason MD on 03/04/2018 1:09 PM
--- NOTE | 2018-03-04 13:13 | Diagnostic Imaging Report ---
EXAM: KNEE LEFT THREE VIEWS DATE: 03/04/2018 12:02 PM INDICATION: ^pain ^[id number] ^1245 fall/pain COMPARISON: None FINDINGS: Bones demineralized. On the lateral view there is a nondisplaced horizontal fracture through the body of the patella. No distraction. Small joint effusion. IMPRESSION: Horizontal fracture patellar body. Signed by: Dr. Kane Mason MD on 03/04/2018 1:10 PM
== END 2018-03-04 15:10 | disposition home or self-care (01) ==
LOC: ER 11:28
DX: M25.562 Pain in left knee (principal); S82.035A Nondisplaced transverse fracture of left patella, initial encounter for closed fracture; M25.572 Pain in left ankle and joints of left foot; M25.511 Pain in right shoulder; I10 Essential (primary) hypertension; G20 Parkinson's disease; F41.9 Anxiety disorder, unspecified; Z86.73 Personal history of transient ischemic attack (TIA), and cerebral infarction without residual deficits
CPT/HCPCS: 99284